=== PATIENT | female | born 1950 | race Caucasian/White ===

== ENCOUNTER 2021-04-08 10:09 | Emergency (ER) | payer MEDICARE, BC, SELFPAY ==
--- NOTE | ~2021-04-08 | XR_ITS ---
EXAMINATION: XR wrist LT min 3V DATE: 04/08/2021 10:42 INDICATION: Left wrist injury. TECHNIQUE: 4 views of left wrist were obtained. COMPARISON: None. FINDINGS: There is a comminuted fracture of distal radius with involvement of the distal articular casillas rface. The main distal fracture fragment demonstrates impaction and dorsal angulation. There is 41 de grees dorsal tilt of the distal articular surface. There is an avulsion fracture of the ulnar styloid . Joint spaces are normal. IMPRESSION: 1. Comminuted fracture of distal radius. 2. Avulsion fracture of the ulnar styloid. Reviewed, dictated and finalized at location B.
--- NOTE | ~2021-04-08 | XR_ITS ---
EXAMINATION: XR wrist LT 2V DATE: 04/08/2021 13:27 INDICATION: Distal left radius fracture status post reduction. TECHNIQUE: 2 views of left wrist were obtained. COMPARISON: Left wrist radiographs at 10:20 AM FINDINGS: There is a comminuted fracture of distal radius with involvement of the distal articular casillas rface and distal radioulnar joint. The main distal fracture fragment demonstrates impaction and dorsa l angulation. There is 6 degrees dorsal tilt of the distal articular surface. There is an avulsion fr acture of the ulnar styloid. Joint spaces are normal. IMPRESSION: 1. Fracture of distal radius with interval improvement in alignment. 2. Avulsion fracture of the ulnar styloid. Reviewed, dictated and finalized at location B.
[2021-04-08 10:24] VITALS: BP 153/96; PULSE 77; RESP 20; TEMP 36.6; O2SAT 96
--- NOTE | 2021-04-08 13:32 | ED.GENADULT ---
HPI - General Adult General Chief complaint: Extremity Injury, Upper Stated complaint: L WRIST PAIN Time Seen by Provider: 04/08/21 11:28 Source: patient and RN notes reviewed Mode of arrival: ambulatory Limitations: no limitations History of Present Illness HPI narrative: Patient is a 70-year-old female who presents to emergency department for evaluation of left wrist injury that occurred yesterday patient was pulling a branch and fell backwards injuring the left wrist presents with bruising swelling and tenderness of the left wrist joint worse with activity and movement. Patient denies other injuries or complaints presents in no distress does not have an orthopedist Related Data Home Medications Medication Instructions Recorded Confirmed vztesslask-zafzphgm-xmnelgbqff 2 inh INHALATION BID 04/08/21 04/08/21 [[employer]] zolmitriptan 5 mg PO PRN PRN 04/08/21 04/08/21 Allergies Allergy/AdvReac Type Severity Reaction Status Date / Time No Known Allergies Allergy Unverified 04/08/21 11:20 Review of Systems Review of Systems: All systems reviewed & are unremarkable except as noted in HPI and below PMFSH Family History Family History (System 10/12/19 @ 12:06 by Natali Pagan) Other Family history of malignant neoplasm Social History Social History Smoking status: Former smoker Smoking end date: 08/24/93 Alcohol intake: current Gender identity (if verbalized by the patient): Female Exam Narrative: GENERAL: Well-appearing, well-nourished, and in no acute distress. HEAD: Normocephalic, atraumatic. EYES: PERRLA and EOMI. ENT: Nares clear, no rhinorrhea or epistaxis. Mucous membranes moist. NECK: Supple. No adenopathy or masses. CHEST: Clear to auscultation. No respiratory distress. No wheezes rales or rhonchi HEART: Regular rate and rhythm. No murmur heard. Normal peripheral pulses. EXTREMITIES: Swelling and tenderness and bruising of the left wrist joint with deformity at the wrist joint SKIN: Warm, dry, no rash. NEURO: No focal deficits. Alert and oriented x3. Neurovascularly intact. Capillary refill less than 2 seconds PSYCH: Normal mood and affect. Course Course Emergency Course: Patient was evaluated in the emergency department wrist was reduced and splinted patient was made aware of case findings and treatment plan and diagnosis will be referred to orthopedic surgery for further care felt appropriate for outpatient reevaluation Vital Signs Vital signs: Vital Signs Temperature 97.9 F 04/08/21 10:24 Pulse Rate 77 04/08/21 10:24 Respiratory Rate 20 04/08/21 10:24 Blood Pressure 153/96 H 04/08/21 10:24 Pulse Oximetry 96 04/08/21 10:24 Temperature 97.9 F 04/08/21 10:24 Pulse Rate 77 04/08/21 10:24 Respiratory Rate 20 04/08/21 10:24 Blood Pressure 153/96 H 04/08/21 10:24 Pulse Oximetry 96 04/08/21 10:24 Procedures Orthopedic Fracture Reduction Fracture #1: Fracture Reduction date: 04/08/21 Fracture Reduction time: 13:36 Time Out Performed: Yes Side: left Fracture Reduction Location: radius and ulna Analgesia: none Pre-Procedure Neuro Vascular Exam: normal Technique: direct manipulation Post Reduction X-rays Demonstrate: acceptable reduction Post-reduction neuro exam: intact Post-reduction vascular exam: intact Splint Applied: Yes Orthopedic Splinting/Casting Injury #1: Splinting/Casting Date: 04/08/21 Splinting/Casting Time: 13:36 Side: left Upper Extremity Injury Location: wrist Splint: customized in ED OCL: short arm Pre-Procedure Neuro Vascular Exam: normal Post-Procedure Neuro Vascular Exam: normal Additional Comments: Sling applied post procedure Medical Decision Making MDM Narrative Medical decision making narrative: Patients injury or
[2021-04-08 14:00] VITALS: BP 166/85; PULSE 72; RESP 18; O2SAT 99
== END 2021-04-08 14:05 | disposition home or self-care (01) ==
PROVIDERS: Emergency Provider Emergency Medicine; PCP Internal Medicine
DX: S52.592A Other fractures of lower end of left radius, initial encounter for closed fracture (principal); S52.612A Displaced fracture of left ulna styloid process, initial encounter for closed fracture; Z87.891 Personal history of nicotine dependence; W18.39XA Other fall on same level, initial encounter
CPT/HCPCS: 25605; 73100; 73110; 99285; A4565

== ENCOUNTER 2022-03-05 08:52 | Outpatient (CLI) | payer MEDICARE, BC, SELFPAY ==
--- NOTE | 2022-03-05 09:16 | ECHO_ITS ---
Patient Info Name: Suzy Mireles Age: 71 years : 1950 Gender: Female Ht: 63 in Wt: 116 lbs BSA: 1.53 m2 HR: 74 bpm BP: 147 / 68 mmHg Heart Rhythm: Sinus Rhythm Exam Date: 03/05/2022 9:45 AM Exam Location: [facility] Patient Status: Outpatient Admit Date: 03/05/2022 Staff Ordering Physician: Johnathan Cervantes MD Manager Summer: Jefferson Vasquez RDCS, RT Attending Provider: Johnathan Cervantes MD Referring Physician: Billy SAVAGE; Exam Type: CA echo doppler color flow Study Info Indications R06.02 - Shortness of breath Complete two-dimensional, color flow and Doppler transthoracic echocardiogram is performed. Strain analysis performed. Summary 1. Complete two-dimensional, color flow and Doppler transthoracic echocardiogram is performed. 2. Left ventricular chamber dimension is normal. 3. Left ventricular systolic function is normal, estimated at 60-65%. 4. There is mildly increased left ventricular wall thickness. 5. The left ventricular diastolic function is grade I diastolic dysfunction. 6. Global longitudinal strain is normal at -19 %. 7. There is no aortic valve stenosis. 8. There is trace mitral valve regurgitation. 9. There is trace tricuspid valve regurgitation. 10. Mild pulmonary hypertension, estimated pulmonary arterial systolic pressure is 39 mmHg. 11. Dilated inferior vena cava with <50% collapse upon inspiration consistent with elevated right atrial pressure, 10 mmHg. Left Ventricle Left ventricular chamber dimension is normal. Left ventricular systolic function is normal, estimated at 60-65%. There is mildly increased left ventricular wall thickness. The left ventricular diastolic function is grade I diastolic dysfunction. Global longitudinal strain is normal at -19 %. Right Ventricle Right ventricular chamber dimension is normal. Right ventricular systolic function is normal. Left Atria Left atrial chamber dimension is normal. Right Atria Right atrial chamber dimension is normal. Aortic Valve The aortic valve is trileaflet. There is no aortic valve stenosis. There is trace aortic valve regurgitation. Pulmonic Valve The pulmonic valve is not well visualized. There is trace pulmonic regurgitation. Mitral Valve The mitral valve has normal leaflets. There is trace mitral valve regurgitation. The mitral valve annulus is mildly calcified. Tricuspid Valve The tricuspid valve leaflets are normal. There is trace tricuspid valve regurgitation. Mild pulmonary hypertension, estimated pulmonary arterial systolic pressure is 39 mmHg. Pericardium/Pleural The pericardium appears epicardial fat pad. There is no pericardial effusion. Inferior Vena Cava Dilated inferior vena cava with <50% collapse upon inspiration consistent with elevated right atrial pressure, 10 mmHg. Aorta The aortic root size at the sinus of Valsalva is normal. There is mild aortic atherosclerosis. Left Ventricular Outflow Tract Name Value Normal LVOT 2D LVOT Diameter 2.0 cm LVOT Doppler LVOT Peak Gradient 3 mmHg LVOT Mean Gradient
--- NOTE | 2022-03-21 13:48 | WPDPFTINT ---
PFT Procedure Performed PFT Procedure Performed Spirometry with Pre/Post Bronchodilator Plethysmography (Lung Vol) Diffusing Cap (DLCO) Flow Vol Loop PFT Interpretation DOS: 03/05/2022 REQUESTING: Dr Cervantes REASON FOR TESTING: Shortness of breath PULMONARY FUNCTION TESTS Results are reliable and reproducible. Spirometry: Pre bronchodilator FEV1 is 59% predicted, 1.23 L, reduced. Pre bronchodilator FVC is 90% predicted, 2.42 L, normal. FEV1/FVC ratio is 51% consistent with airflow obstruction. FEF 25-75 is 24% 0.43 L, severely reduced. After bronchodilator administration there was a 14% increase in FVC, 103% predicted, 2.76 L 340 mill increase and this is statistically significant. Lung volumes: Total lung capacity is 127%, 6.25 L, increased. This is consistent with hyperinflation. FRC is 153%, 4.28 L, increased. ERV is 60%, 0.53 L, reduced. Residual volume is 159%, 3.45 L, increased. RV/TLC is 55%, upper limit normal. Airrway resistance increased, 224%, 2.97 cmH20/L/sec. Diffusion: DLCO 56%, 11.2 mL/min/mmHg, below normal. DLCO/VA 66%, 2.86 mL/min/mmHg, below normal. Flow volume loop: There is coving of the expiratory limb. IMPRESSION: There is a moderate obstructive ventilatory impairment which is severe in the small airways, significant response to bronchodilator, mild hyperinflation, severe air trapping and moderate diffusion impairment. Reyna Gayle MD
--- NOTE | 2022-03-21 13:53 | WPDSIXMINUTE ---
Six Minute Walk Procedure Procedure Performed Pulmonary Stress Test (6 min walk) Six Minute Walk Six Minute Walk: DOS: 03/05/2022 REQUESTING: Dr Cervantes REASON FOR TESTING: Shortness of breath SIX MINUTE WALK This test was performed according to ATS guidelines. The initial heart rate is 68. The initial saturation is 98%. The patient walked while breathing room air, and walked for 6 minutes without stopping to rest. The lowest saturation during walking was 91%. The highest pulse was 96 beats per minute. The distance was 1600 ft/478 m. IMPRESSION: Patient had mild desaturation without loco hypoxemia. No supplemental oxygen is indicated with exertion. Distance walked is adequate for age.
== END 2022-03-05 08:53 | disposition home or self-care (01) ==
LOC: ANHCARD 08:55
PROVIDERS: PCP Internal Medicine; Visit Provider Internal Medicine Pulmonary Disease
DX: Z72.0 Tobacco use (principal); J40 Bronchitis, not specified as acute or chronic; R06.02 Shortness of breath; I27.20 Pulmonary hypertension, unspecified
CPT/HCPCS: 93306; 94060; 94618; 94726; 94729

== ENCOUNTER 2022-10-23 07:58 | Outpatient (CLI) | payer MEDICARE, BC, SELFPAY ==
[2022-10-23 08:25] LABS: Alveolar/Arterial O2 Gradient 37.1 mmHg; Base Excess ABG 0.5 mEq/l (+/-2.0); Carboxyhemoglobin 0.1 % THb (0-2.0); Fractional Inspired Oxygen 21 %; HCO3 ABG 24.3 mEq/l (22.0-26.0); Methemoglobin ABG 0.4 %THb (0-1.5); Oxygen Content ABG 21.3 %vol (16.0-22.0); Oxygen Saturation ABG 94.4 % (95.0-100.0); Oxyhemoglobin 93.7 % THb (90.0-100.0); PCO2 ABG 36.8 mmHg (35.0-45.0); PO2 ABG 68.6 mmHg (80.0-100.0); PO2 FiO2 Ratio Arterial Blood 3.27 %; Reduced Hemoglobin 5.8 %THb (0-5.0); Total Hemoglobin 16.2 g/dL (12.0-18.0); pH ABG 7.437 (7.350-7.450)
[2022-10-23 08:26] LABS: Device ROOM AIR; Modified Allen's Test Pass; Site Drawn RIGHT RADIAL
== END 2022-10-23 07:59 | disposition home or self-care (01) ==
LOC: ANHPFT 07:59
PROVIDERS: PCP Internal Medicine; Visit Provider Internal Medicine Pulmonary Disease
DX: J44.9 Chronic obstructive pulmonary disease, unspecified (principal)
CPT/HCPCS: 36600; 82375; 82805; 83050

== ENCOUNTER → 2023-09-07 12:27 | Outpatient (CLI) | payer MEDICARE, BC, SELFPAY ==
--- NOTE | ~2023-09-07 | CT_ITS ---
Non-contrast CT scan of the Abdomen and Pelvis Clinical indication: Ventral hernia Technique: 2.5 mm axial scans were obtained through the abdomen and pelvis without intravenous or or al contrast. Dose reduction technique was used on this scan by utilizing automated exposure control a nd iterative reconstruction technique. The dose-length product (DLP) was 290.37 mGy-cm. Findings: Images through the lung bases reveal no abnormalities. There is no evidence of renal or ureteral calculi. The kidneys and the ureters are nondilated. The liver, spleen, pancreas, gallbladder, and adrenals appear normal. There are atherosclerotic calci fications of the aorta. There is no evidence of bowel obstruction. Images through the pelvis were performed. There is no evidence of ascites or lymphadenopathy. Urinary bladder well distended. No pelvic mass seen. Impression: No significant abnormality seen. No hernia. Reviewed, dictated and finalized at [facility]. ATTENDANT Impression: No significant abnormality seen. No hernia.
== END ==
PROVIDERS: PCP Internal Medicine; Visit Provider Surgery
DX: K43.9 Ventral hernia without obstruction or gangrene (principal)
CPT/HCPCS: 74176

== ENCOUNTER 2023-10-16 11:56 | Outpatient (CLI) | payer MEDICARE, BC, SELFPAY ==
[2023-10-21 07:23] LABS: Alpha-1-Antitrypsin, QN 116 mg/dL (83-199)
== END 2023-10-16 11:57 | disposition home or self-care (01) ==
LOC: ANHLAB 11:58
PROVIDERS: PCP Internal Medicine; Visit Provider Internal Medicine Pulmonary Disease
DX: E88.01 Alpha-1-antitrypsin deficiency (principal)
CPT/HCPCS: 36415; 82103

== ENCOUNTER 2024-04-08 14:27 | Outpatient (CLI) | payer MEDICARE, BC, SELFPAY ==
--- NOTE | 2024-04-14 11:15 | P.PCNPFT_ITS ---
PFT Procedure Performed PFT Procedure Performed Spirometry with Pre/Post Bronchodilator Plethysmography (Lung Vol) Diffusing Cap (DLCO) Flow Vol Loop PFT Interpretation DOS: 04/08/2024 REQUESTING: Dr Johnathan Cervantes REASON FOR TESTING: Shortness of breath PULMONARY FUNCTION TESTS Results are reliable and reproducible. Repeatability of spirometry FEV1 maneuver pre and post bronchodilator is Grade A. Spirometry: The pre-bronchodilator FEV1 is 1.30 L, 64%, decreased. The pre- bronchodilator FVC is 2.61 L, 99%, normal. The FEV1/FVC ratio is 50%, decreased, consistent with airflow obstruction. After bronchodilator, the FEV1 is 1.30 L, 64%, no change. The FVC after bronchodilator is 2.50 L, 95%, -4%. The FEV1/FVC ratio is 52%. Lung volumes: The total lung capacity is 4.99 L, 102%, normal. The FRC is 3.01 L, 107%, normal. The residual volume is 2.37 L, 107%, normal. The RV/TLC is 47% , normal. Airway resistance is increased. Diffusion: DLCO is 9.4, 48%, decreased. The DLCO/VA is 2.78, 65%, closer to normal still decreased compared to normal. Flow volume loop: The flow volume loop has significant coving of the expiratory limb. IMPRESSION: This spirometry shows moderate airflow obstruction without response to bronchodilator, normal lung volumes and a moderate diffusion impairment. Lack of response to bronchodilator should not preclude use if clinically indicated. Since a prior study on 03/05/2022, the patient had similar spirometry values. She no longer has hyperinflation or air trapping. Diffusion impairment is slowly progressing. Reyna Gayle MD
== END 2024-04-08 14:28 | disposition home or self-care (01) ==
LOC: ANHPFT 14:29
PROVIDERS: PCP Internal Medicine; Visit Provider Internal Medicine Pulmonary Disease
DX: J44.9 Chronic obstructive pulmonary disease, unspecified (principal)
CPT/HCPCS: 94060; 94726; 94729

== ENCOUNTER 2024-09-21 17:07 | Emergency (ER) | payer MEDICARE, BC, SELFPAY ==
--- OUTSIDE RECORDS SUMMARY | 2024-09-21 17:09 | XMS_ITS | Encounter Summary ---
Author Organization [facility] Address [address] [place] [address] Phone Care Team Providers Care Trust Vault Custodian Name Role Phone Saul Tesfaye MD Primary Care Provider [phone] Helen Mullen APRN, TABLEAU ARCHITECT Unavailable Reason for Referral * Radiology Services (Routine) - Closed Specialty Diagnoses / Procedures Referred By Elsi hoover Referred To Contact Radiology Diagnoses Pre-op testing Procedures EKG 12 LEAD Sami Hill DO [address] [place] [address] Phone: tel: fax: Referral ID Status Reason Start Date Expiration Date Visits Re quested Visits Authorized [id number] Closed 07/04/2020 1 1 DDLE BUG Encounter Details Date Type Department Care Team (Late st Contact Info) Description 07/04/2020 [facility] [address] [place] [id number] Sami Hill DO [address] [place] [address] Pre-op testing (Primary Dx) Social History Tobacco Use Types Packs/Day Years Used Date Smoking Tobacco: Former Cigarettes Q uit: 1994 Smokeless Tobacco: Never Alcohol Use Standard Drinks/Week Comments Not Currently 0 (1 standard drink = 0.6 oz pur e alcohol) Comments Unknown Sex and Gender Information Value Date Recorded Sex Assigned at Not on file Legal Sex Female 11:10 AM STRADDLE BUG Gender Identity Not on file Sexual Orientation Not on file COVID-19 Exposure Response Date Recorded In the last month, have you been in contact with someone who was confirmed or suspected to have Coronavirus / COVID-19? No / Unsure 07/05/2020 9:19 AM STRADDLE BUG documented as of this encounter Plan of Treatment Not on file documented as of this encounter Results * EKG 12 LEAD (07/05/2020 10:02 AM STRADDLE BUG) Ventricular Rate BPM EXTERNAL EKG Atrial Rate BPM EXTERNAL EKG P-R Interval 142 ms EXTERNAL EKG QRS Duration 88 ms EXTERNAL EKG Q-T Duration 396 ms EXTERNAL EKG QTC CALCULATION 440 ms EXTERNAL EKG P [place] 85 degrees EXTERNAL EKG R [place] 87 degrees EXTERNAL EKG T [place] 81 degrees EXTERNAL EKG 07/05/2020 10:0 2 AM STRADDLE BUG Impressions EXTERNAL EKG - 07/05/2020 10:51 AM STRADDLE BUG Sinus rhythm Possible right atrial abnormality rSr'(V1) - probable normal variant Comparison Summary: No serial comparison made Summary: Borderline ECG Confirmed by Francie Stoll [id number] on 07/05/2020 10:51:23 AM Narrative Procedure Note Yuni Marmolejo MD - 07/05/2020 IMPRESSION: Sinus rhythm Possible right atrial abnormality rSr'(V1) - probable normal variant Comparison Summary: No serial comparison made Summary: Borderline ECG Confirmed by Francie Stoll [id number] on 07/05/2020 10:51:23 AM Sami Hill DO IMG ECG ORDERABLES Final Result EXTERNAL EKG * (ABNORMAL) HEMOGLOBIN & HEMATOCRIT (H&H) (07/05/2020 9:51 AM STRADDLE BUG) HEMOGLOBIN (HGB) 15.6 12.0 - 15.8 g/dL 07/05/2020 10:30 AM STRADDLE BUG [facility] HEMATOCRIT (HCT) 48.7(H) 36.0 - 47.0 % 07/05/2020 10:30 AM [facility] Blood Venipuncture / Unknown 07/05/2020 9:51 AM STRADDLE BUG 07/05/2020 10:26 AM STRADDLE BUG us Sami Hill DO HEMATOLOGY ORDERABL ES Final Result [facility] [address] [place] [address] * (ABNORMAL) BASIC METABOLIC PANEL W/ CALCIUM TOTAL (07/05/2020 9:51 AM STRADDLE BUG) SODIUM 141 136 - 144 mmol/L 07/05/2020 11:08 AM [facility] POTASSIUM 4.9 3.5 - 5.1 mmol/L 07/05/2020 11:08 AM [facility] CHLORIDE 103 100 - 110 mmol/L 07/05/2020 11:08 AM [facility] CO2, VENOUS 27 22 - 32 mmol/L 07/05/2020 11:08 AM [facility] ANION GAP 15.9 8.0 - 20.0 mmol/L 07/05/2020 11:08 AM [facility] GLUCOSE 84 70 - 99 mg/dL 07/05/2020 11:08 AM [facility] BUN 15 8 - 23 mg/dL 07/05/2020 11:08 AM [facility] CREATININE, BLOOD 0.98 0.60 - 1.10 mg/dL 07/05/2020 11:08 AM [facility] BUN/CREATININE RATIO 15 12 - 20 ratio 07/05/2020 11:08 AM [facility] CALCIUM 10.4(H) 8.9 - 10.3 mg/dL 07/05/2020 11:08 AM [facility] GFR, EST. NONAFRICAN 56(L) >=60 07/05/2020 11:08 AM [facility] GFR, EST. >60 >=60 07/05/2020 11:08 AM STRADDLE BUG [facility] Comment: Creatinine Clearance is the preferred criteria for selecting drug dose adjustments in renally impaired patients. ??The GFR is provided as additional pertinent clinical information. GFR is reported in mL/min/1.73 sq m. Blood Venipuncture / Unknown 07/05/2020 9:51 AM STRADDLE BUG 07/05/2020 10:26 AM STRADDLE BUG Sami Hill DO CHEMISTRY ORDERABLE S Final Result [facility] [address] [place] [address] documented in this encounter Visit Diagnoses Diagnosis Pre-op testing- Primary Preoperative examination, unspecified Pre-op testing Preoperative examination, unspecified documented in this encounter Care Teams Trust Vault Custodian Relationship Specialty Start Date End Date Saul Tesfaye MD [address] [facility] [address] [place] [id number] PCP - General Internal Medicine 07/05/20 Helen Mullen APRN, TABLEAU ARCHITECT [address] [place] [address] Nurse Practitioner Advanced Practice Nurse 08/22/24 documented as of this encounter
--- OUTSIDE RECORDS SUMMARY | 2024-09-21 17:09 | XMS_ITS | Continuity of Care Document ---
Author Organization [facility] Address [address] [place] [address] Phone Care Team Providers Care Jewel Hole Rough Opener Name Role Phone Burciaga OD, Rudy Unavailable Unavailable Advance Directives Directive Yes / No Effective Date File Name No Information Encounters Encounter Description Practice Location Reason(s) For Visit Diagnoses Date Provider Providers Copied on Encounter [facility], [address], [place], [place], [id number], [place] tel:[phone] [facility] No Information Jan- 5-200 0 Burciaga OD Rudy. [address] , [address], [place], [address], [place]. tel:[phone] Family History Family Member Type Diagnosis Age At Onset No Information Payers Payer name Insurance type Covered democrat ID Authoriza tion(s) No Information Social History Type Description Quantity Date Captured Comments Sex Female Smoking Status No Information Chief Complaint And Reason For Visit No Information Reason For Referral Reason For Referral No Information History Of Present Illness Encounter Date Complaint History Of Prese nt Illness No Information Functional Status Date Functional Assessmen t No Information Instructions Date Instruction Additional Infor mation No Information Assessments Type Assessment Date No Information Patient Care Teams Name Effective Dates (start - stop) Status Members No Information
--- OUTSIDE RECORDS SUMMARY | 2024-09-21 17:09 | XMS_ITS | Encounter Summary ---
Author Organization [facility] Address [address] [place] [place] [address] Phone Care Team Providers Care Labor Expediter Name Role Phone Saul Tesfaye MD Primary Care Provider [phone] Helen Mullen APRN, PROJECT SURVEYOR Unavailable Encounter Details Date Type Department Care Team (Latest Contact Info) Description 07/02/2020 [facility] [address] [place] [id number] Allan Francis MD [address] [facility] [address] [place], [place] [id number] Pre-op chest exam (Primary Dx) Social History Tobacco Use Types Packs/Day Years Used Date Smoking Tobacco: Never Assessed Comments Unknown Sex and Gender Information Value Date Recorded Sex Assigned at Not on file Legal Sex Female 11:10 AM ADVERTISING CONSULTANT Gender Identity Not on file Sexual Orientation Not on file COVID-19 Exposure Response Date Recorded In the last month, have you been in contact with someone who was confirmed or suspected to have Coronavirus / COVID-19? No / Unsure 07/05/2020 9:19 AM ADVERTISING CONSULTANT documented as of this encounter Plan of Treatment Scheduled Orders Name Type Priority Associated Diagnoses Orde r Schedule SARS-COV-2 BY MOLECULAR Microbiology Routine Pre-op chest exam Expected: 07/13/2020, Expires: 08/01/2020 documented as of this encounter Visit Diagnoses Diagnosis Pre-op chest exam- Primary Pre-operative respiratory examination documented in this encounter Care Teams Labor Expediter Relationship Specialty Start Date End Date Saul Tesfaye MD [address] [facility] [address] [place] [address] PCP - General Internal Medicine 07/05/20 Helen Mullen APRN, PROJECT SURVEYOR [address] [place] [address] Nurse Practitioner Advanced Practice Nurse 08/22/24 documented as of this encounter
--- OUTSIDE RECORDS SUMMARY | 2024-09-21 17:10 | XMS_ITS | Data Portability ---
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 Plan of Treatment Reminders Order Date Submit Date Provider Last Modified By Organization Details Last Modified Time Details Appointments None recorded . Lab lipid panel, serum 023 02/28/20 23 [email or web address] [facility], [address] [place], [address], 3 17:42:08 CMP, serum or plasma 023 02/28/20 23 [email or web address] [facility], [address] [place], [address], 3 17:42:08 CBC w/ auto diff 023 02/28/20 23 [email or web address] [facility], [address] [place], [address], 3 17:42:08 lipid panel, serum 024 12/01/19 24 [facility], [address] [place], [address], 4 09:46:57 CMP, serum or plasma 024 12/01/19 24 [facility], [address] [place], [address], 4 09:46:58 Referral None recorded . Procedures None recorded . Surgeries None recorded . Imaging None recorded . Medication Orders None recorded . Patient TargetsNo targets recorded. Patient Instructions Encounter Date Encounter Id Patient Instructions Last Modified By Organization Details Last Modified Time 02/27/2023 [id number] dementia rating scale-2* [email or web address] Not available 02/27/2023 11:39:16 alcohol misuse* [email or web address] Not available 02/27/2023 11:39:16 depression screening* [email or web address] Not available 02/27/2023 11:39:16 multi-dimensiona l health assessment questionnaire* Not available 02/27/2023 11:39:16 Personalized a lt Plan and Screening Recommendations Advance Directives - Do you have one? Yes Advance Directives - Do we have your advance directive on file in your health record? Primary Prevention/Interven tion (prevents or decreases the chance of common diseases from occurring) Smoking Risk: Non Smoker Alcohol Misuse Screening: Negative Weight: Appropriate Physical activity: Nutrition: Good Average Fall Risk (screened today): Low Vaccines Pneumococcal: Ordered Recommended today Recommended today, but you have declined No further needed Influenza: Chronic Disease Risks Stroke: Low Risk I have no recommendations Heart Attack: Low risk I have no recommendations Clogging of the Arteries: Low risk I have no recommendations Diabetes: Low Risk I have no recommendations Secondary Prevention/Interven tion (detects treatable diseases before they may cause symptoms, disability, or ) Breast Cancer Screening with mammogram: Cervical/Uterine/Ov patt Cancer Screening: Osteoporosis Screening: Date Screening Last Performed: Colon Cancer Screening: Colonoscopy In: Ordered Recomme nded Recommended today, but you have declined Date Screening Last Performed: ___2015 Eye Disease Screening: Dementia Risk: Low I have no recommendations Depression Screening: Negative [email or web address] Not available 02/27/2023 11:32:25 Medicare wellnes s evaluation risk assessment stable. Follow-up for asthma-anxiety -migraines -history of colon polyps. Does need another colonoscopy. Is up-to-date on other screening studies. Angus is doing well. Will continue on current medications check blood work consisting of CBC, CMP lipid and vitamin-D level. Continue on current Rx and follow-up in six months Needs a follow-up colonoscopy with Dr. Pierce for history of colon polyps [email or web address] Not available 02/27/2023 11:38:54 08/04/2023 [id number] GERD- history of colon polyps -senile osteoporosis -as-migraine. Will continue on current medications. Will set up for upper and lower endoscopy since the patient is overdue on the colonoscopy. Did have a family history of stomach cancer as well which is why we are performing the upper endoscopy as well. Will continue on current Rx and follow-up in four months. Portions of the record may have been created with voice recognition software. Occasional wrong-word or ? s ound-a-like? substitutions may have occurred due to the inherent limitations of voice recognition software. Read the chart carefully and recognize, using context, where substitutions have occurred. Follow-up colonoscopy for colon polyp Upper endoscopy for family history of gastric cancer and intractable GERD [email or web address] Not available 08/04/2023 10:51:24 12/01/2023 [id number] Follow-up asthma , GERD as well as abdominal ventral hernia. All clinically stable at this time. Will check blood work consisting of CBC, CMP, lipid and follow-up in six months. Next Appt: 6 Months Approximate Date: 05/29/2024 Portions of the record may have been created with voice recognition software. Occasional wrong-word or ? s ound-a-like? substitutions may have occurred due to the inherent limitations of voice recognition software. Read the chart carefully and recognize, using context, where substitutions have occurred. Not available 12/01/2023 11:36:01 05/31/2024 [id number] dementia rating scale-2* [email or web address] Not available 05/31/2024 11:46:06 alcohol misuse* [email or web address] Not available 05/31/2024 11:46:06 depression screening* Not available 05/31/2024 11:46:06 multi-dimensiona l health assessment questionnaire* [email or web address] Not available 05/31/2024 11:46:06 Personalized Hea lt Plan and Screening Recommendations Advance Directives - Do you have one? Yes Advance Directives - Do we have your advance directive on file in your health record? Primary Prevention/Interven tion (prevents or decreases the chance of common diseases from occurring) Smoking Risk: Non Smoker Alcohol Misuse Screening: Negative Weight: Appropriate Physical activity: Nutrition: Good Average Fall Risk (screened today): Low Vaccines Pneumococcal: Ordered Recommended today Influenza: Chronic Disease Risks Stroke: Low Risk Intermediate Risk I have no recommendations Act eugenia diagnosis, Continue current treatment plan Heart Attack: Low risk I have no recommendations Clogging of the Arteries: Low risk I have no recommendations Diabetes: Low Risk I have no recommendations Secondary Prevention/Interven tion (detects treatable diseases before they may cause symptoms, disability, or ) Breast Cancer Screening with mammogram: Your next mammogram: Ordered Recommended today Cervical/Uterine/Ov patt Cancer Screening: Osteoporosis Screening: Your next DEXA in: Ordered Recomme nded today Date Screening Last Performed: Colon Cancer Screening: Colonoscopy In: Ordered Recomme nded Recommended today, but you have declined Date Screening Last Performed: __2016___ Eye Disease Screening: Dementia Risk: Low I have no recommendations Depression Screening: Negative [email or web address] Not available 05/31/2024 11:35:24 Medicare wellnes s evaluation risk assessment stable. Follow-up for COPD, GERD, anxiety disorder all clinically stable. Also history of atrial fibrillation. Will check no additional blood work at this time. He is followed on a regular basis by Cardiology and is in the process of completing a 30 day event recorder. Clinically stable. Will continue on current medications follow-up in six months. Additional Orders - Directives - Recommendations 1. Mammogram 2. DEXA Scan 3. Colonoscopy Follow Up: 6 Months Approximate Date: 11/27/2024 Portions of the record may have been created with voice recognition software. Occasional wrong-word or ? s ound-a-like? substitutions may have occurred due to the inherent limitations of voice recognition software. Read the chart carefully and recognize, using context, where substitutions have occurred. [email or web address] Not available 05/31/2024 11:45:38 Reason for Referral None Reported. Results Created Date Observation Date Name Description Value Unit Range Abnormal Flag Note LastModifiedBy Organization Detail LastModifiedTime 09/08/19 23 09/09/2022 RENAL FUNCT ION PANEL glucose 92 mg/dL 65-139 normal Non-f astin g refer ence inter som Not Available [facility] [address] [place], [address], 09/09/2022 08:56:20 09/08/19 23 09/09/2022 RENAL FUNCT ION PANEL urea nitrogen (BUN) 18 mg/dL 7-25 normal Not Available [address], [address], 09/09/2022 08:56:20 09/08/19 23 09/09/2022 RENAL FUNCT ION PANEL creatinine 1.03 mg/dL 0.60-1 .00 high Not Available [address], [address], 09/09/2022 08:56:20 09/08/19 23 09/09/2022 RENAL FUNCT ION PANEL eGFR 57 mL/mi n/1.7 3m2 > or = 60 low The eGFR is based on the CKD-E PI 2020 equat ion. To calcu late the new eGFR from a previ ous Creat inine or Cysta tin C resul t, go to https ://raul w.annel shane.o rickey/pr ofess ional s/ kdoqi /gfr% 5Fcal culat or Not Available [address], [address], 09/09/2022 08:56:20 09/08/19 23 09/09/2022 RENAL FUNCT ION PANEL BUN/creatini ne ratio 17 (calc ) 6-22 normal Not Available [address], [address], 09/09/2022 08:56:20 09/08/19 23 09/09/2022 RENAL FUNCT ION PANEL carbon dioxide 31 mmol/ L 20-32 normal Not Available [address], [address], 09/09/2022 08:56:20 09/08/19 23 09/09/2022 RENAL FUNCT ION PANEL sodium 141 mmol/ L 135-14 6 normal Not Available [address], [address], 09/09/2022 08:56:20 09/08/19 23 09/09/2022 RENAL FUNCT ION PANEL potassium 4.0 mmol/ L 3.5-5. 3 normal Not Available [address], [address], 09/09/2022 08:56:20 09/08/19 23 09/09/2022 RENAL FUNCT ION PANEL chloride 101 mmol/ L 98-110 normal Not Available [address], [address], 09/09/2022 08:56:20 09/08/19 23 09/09/2022 RENAL FUNCT ION PANEL calcium 10.0 mg/dL 8.6-10 .4 normal Not Available [address], [address], 09/09/2022 08:56:20 09/08/19 23 09/09/2022 RENAL FUNCT ION PANEL phosphate ( phosphorus) 4.3 mg/dL 2.1-4. 3 normal Not Available [address], [address], 09/09/2022 08:56:20 09/08/19 23 09/09/2022 RENAL FUNCT ION PANEL albumin 4.4 g/dL 3.6-5. 1 normal Not Available [address], [address], 09/09/2022 08:56:20 04/22/20 23 04/23/2023 LIPID PANEL , STAND CHING cholesterol, total 194 mg/dL <200 normal Not Available [address], [address], 04/23/2023 03:49:13 04/22/20 23 04/23/2023 LIPID PANEL , STAND CHING HDL cholesterol 83 mg/dL > or = 50 normal Not Available [address] [address] [address], [place], [address], 04/23/2023 03:49:13 04/22/2004/23/2023 LIPID PANEL , STAND CHING triglyceride s 70 mg/dL <150 normal Not Available [facility] [address] [place], [address], 04/23/2023 03:49:13 04/22/20 23 04/23/2023 LIPID PANEL , STAND CHING LDL-choleste rol 95 mg/dL _(javier c) normal Refer ence range : <100 Essie able range <100 mg/dL for prima ry preve ntion ; <70 mg/dL for patie nts with CHD or diabe tic patie nts with > or = 2 CHD risk facto rs. LDL-C is now calcu lated using the Abbie n-Hop kins calcu valery n, which is a valid ated novel memo dalton r accur acy than the Fried lambert equat ion in the estim ation of LDL-C . Abbie more SS et al. JANE. 2013; 310(1 9): 2061- 2068 (http ://ed ucati on.Sidelines estelaREVENUE.com. A Green Night's Sleep/f aq/FA Q164) Not Available [facility] [address] [address] [address], [place], [address], 04/23/2023 03:49:13 04/22/2004/23/2023 LIPID PANEL , STAND CHING chol/HDLC ratio 2.3 (calc ) <5.0 normal Not Available [facility] [address] [address], [place], [address], 04/23/2023 03:49:13 04/22/2004/23/2023 LIPID PANEL , STAND CHING non HDL cholesterol 111 mg/dL _(javier c) <130 normal For patie nts with diabe guerita plus 1 major ASCVD risk facto r, treat ing to a non-H DL-C goal of <100 mg/dL (LDL- C of <70 mg/dL ) is garryi low sigala optio n. Not Available [address], [address], 04/23/2023 03:49:13 04/22/20 23 04/23/2023 COMPR EHENS EUGENIA METAB OLIC PANEL glucose 73 mg/dL 65-99 normal Fasti ng refer ence inter som Not Available [address], [address], 04/23/2023 03:49:14 04/22/20 23 04/23/2023 COMPR EHENS EUGENIA METAB OLIC PANEL urea nitrogen (BUN) 18 mg/dL 7-25 normal Not Available [address], [address], 04/23/2023 03:49:14 04/22/20 23 04/23/2023 COMPR EHENS EUGENIA METAB OLIC PANEL creatinine 1.00 mg/dL 0.60-1 .00 normal Not Available [address], [address], 04/23/2023 03:49:14 04/22/20 23 04/23/2023 COMPR EHENS EUGENIA METAB OLIC PANEL eGFR 59 mL/mi n/1.7 3m2 > or = 60 low Not Available [address], [address], 04/23/2023 03:49:14 04/22/2004/23/2023 COMPR EHENS EUGENIA METAB OLIC PANEL BUN/creatini ne ratio SEE NOTE: (calc ) 6-22 Not Repor ngozi: BUN and Creat inine are withi n refer ence range . Not Available [facility] [address], [address], 04/23/2023 03:49:14 04/22/20 23 04/23/2023 COMPR EHENS EUGENIA METAB OLIC PANEL sodium 141 mmol/ L 135-14 6 normal Not Available [address], [address], 04/23/2023 03:49:14 04/22/2004/23/2023 COMPR EHENS EUGENIA METAB OLIC PANEL potassium 4.3 mmol/ L 3.5-5. 3 normal Not Available [address], [address], 04/23/2023 03:49:14 04/22/2004/23/2023 COMPR EHENS EUGENIA METAB OLIC PANEL chloride 105 mmol/ L 98-110 normal Not Available [address], [address], 04/23/2023 03:49:14 04/22/2004/23/2023 COMPR EHENS EUGENIA METAB OLIC PANEL carbon dioxide 29 mmol/ L 20-32 normal Not Available [address], [address], 04/23/2023 03:49:14 04/22/2004/23/2023 COMPR EHENS EUGENIA METAB OLIC PANEL calcium 9.5 mg/dL 8.6-10 .4 normal Not Available [address], [address], 04/23/2023 03:49:14 04/22/2004/23/2023 COMPR EHENS EUGENIA METAB OLIC PANEL protein, total 7.0 g/dL 6.1-8. 1 normal Not Available [address], [address], 04/23/2023 03:49:14 04/22/2004/23/2023 COMPR EHENS EUGENIA METAB OLIC PANEL albumin 4.3 g/dL 3.6-5. 1 normal Not Available [address], [address], 04/23/2023 03:49:14 04/22/20 23 04/23/2023 COMPR EHENS EUGENIA METAB OLIC PANEL globulin 2.7 g/dL_ (calc ) 1.9-3. 7 normal Not Available [address], [address], 04/23/2023 03:49:14 04/22/20 23 04/23/2023 COMPR EHENS EUGENIA METAB OLIC PANEL albumin/glob ulin ratio 1.6 (calc ) 1.0-2. 5 normal Not Available [address], [address], 04/23/2023 03:49:14 04/22/20 23 04/23/2023 COMPR EHENS EUGENIA METAB OLIC PANEL bilirubin, total 0.8 mg/dL 0.2-1. 2 normal Not Available [address], [address], 04/23/2023 03:49:14 04/22/20 23 04/23/2023 COMPR EHENS EUGENIA METAB OLIC PANEL alkaline phosphatase 92 U/L 37-153 normal Not Available [address], [address], 04/23/2023 03:49:14 04/22/20 23 04/23/2023 COMPR EHENS EUGENIA METAB OLIC PANEL AST 27 U/L 10-35 normal Not Available [address], [address], 04/23/2023 03:49:14 04/22/20 23 04/23/2023 COMPR EHENS EUGENIA METAB OLIC PANEL ALT 21 U/L 6-29 normal Not Available [address], [address], 04/23/2023 03:49:14 04/22/20 23 04/23/2023 CBC (INCL UDES DIFF/ PLT) white blood cell count 6.4 thous and/u L 3.8-10 .8 normal Not Available [address], [address], 04/23/2023 03:49:15 04/22/20 23 04/23/2023 CBC (INCL UDES DIFF/ PLT) red blood cell count 4.69 idania on/uL 3.80-5 .10 normal Not Available [address], [address], 04/23/2023 03:49:15 04/22/20 23 04/23/2023 CBC (INCL UDES DIFF/ PLT) hemoglobin 15.0 g/dL 11.7-1 5.5 normal Not Available [address], [address], 04/23/2023 03:49:15 04/22/2004/23/2023 CBC (INCL UDES DIFF/ PLT) hematocrit 43.4 % 35.0-4 5.0 normal Not Available [address], [address], 04/23/2023 03:49:15 04/22/2004/23/2023 CBC (INCL UDES DIFF/ PLT) MCV 92.5 fL 80.0-1 00.0 normal Not Available [address], [address], 04/23/2023 03:49:15 04/22/20 23 04/23/2023 CBC (INCL UDES DIFF/ PLT) MCH 32.0 pg 27.0-3 3.0 normal Not Available [facility] [address], [address], 04/23/2023 03:49:15 04/22/2004/23/2023 CBC (INCL UDES DIFF/ PLT) MCHC 34.6 g/dL 32.0-3 6.0 normal Not Available [address], [address], 04/23/2023 03:49:15 04/22/2004/23/2023 CBC (INCL UDES DIFF/ PLT) RDW 12.6 % 11.0-1 5.0 normal Not Available [address], [address], 04/23/2023 03:49:15 04/22/2004/23/2023 CBC (INCL UDES DIFF/ PLT) platelet count 185 thous and/u L 140-40 0 normal Not Available [address], [address], 04/23/2023 03:49:15 04/22/2004/23/2023 CBC (INCL UDES DIFF/ PLT) MPV 9.9 fL 7.5-12 .5 normal Not Available [address], [address], 04/23/2023 03:49:15 04/22/20 23 04/23/2023 CBC (INCL UDES DIFF/ PLT) absolute neutrophils 4198 cells /uL 1500-7 800 normal Not Available [address], [address], 04/23/2023 03:49:15 04/22/2004/23/2023 CBC (INCL UDES DIFF/ PLT) absolute lymphocytes 1357 cells /uL 850-39 00 normal Not Available [address], [address], 04/23/2023 03:49:15 04/22/2004/23/2023 CBC (INCL UDES DIFF/ PLT) absolute monocytes 538 cells /uL 200-95 0 normal Not Available [address], [address], 04/23/2023 03:49:15 04/22/20 23 04/23/2023 CBC (INCL UDES DIFF/ PLT) absolute eosinophils 256 cells /uL 15-500 normal Not Available [address], [address], 04/23/2023 03:49:15 04/22/20 23 04/23/2023 CBC (INCL UDES DIFF/ PLT) absolute basophils 51 cells /uL 0-200 normal Not Available [facility] [address], [address], 04/23/2023 03:49:15 04/22/20 23 04/23/2023 CBC (INCL UDES DIFF/ PLT) neutrophils 65.6 % normal Not Available [address], [address], 04/23/2023 03:49:15 04/22/20 23 04/23/2023 CBC (INCL UDES DIFF/ PLT) lymphocytes 21.2 % normal Not Available [address], [address], 04/23/2023 03:49:15 04/22/20 23 04/23/2023 CBC (INCL UDES DIFF/ PLT) monocytes 8.4 % normal Not Available [facility] [address], [address], 04/23/2023 03:49:15 04/22/20 23 04/23/2023 CBC (INCL UDES DIFF/ PLT) eosinophils 4.0 % normal Not Available [facility] [address], [address], 04/23/2023 03:49:15 04/22/20 23 04/23/2023 CBC (INCL UDES DIFF/ PLT) basophils 0.8 % normal Not Available [address], [address], 04/23/2023 03:49:15 04/29/20 24 04/30/2024 LIPID PANEL , STAND CHING cholesterol, total 161 mg/dL <200 normal Not Available [facility] [place] [address] [place], [address], 04/30/2024 09:46:57 04/29/20 24 04/30/2024 LIPID PANEL , STAND CHING HDL cholesterol 79 mg/dL > or = 50 normal Not Available [facility] [address] [place], [address], 04/30/2024 09:46:57 04/29/20 24 04/30/2024 LIPID PANEL , STAND CHING triglyceride s 58 mg/dL <150 normal Not Available [facility] [address] [address] [place], [address], 04/30/2024 09:46:57 04/29/20 24 04/30/2024 LIPID PANEL , STAND CHING LDL-choleste rol 69 mg/dL _(javier c) normal Refer ence range : <100 Essie able range <100 mg/dL for prima ry preve ntion ; <70 mg/dL for patie nts with CHD or diabe tic patie nts with > or = 2 CHD risk facto rs. LDL-C is now calcu lated using the Abbie more-Hop eli rasmussen n, which is a valid ated novel memo alva accur acy than the Fried lambert equat ion in the estim ation of LDL-C . Abbie more SS et al. JANE. 2013; 310(1 9): 2061- 2068 (http ://ed ucati on.Qu Sandi nogueras. com/f aq/FA Q164) Not Available [facility] [address] [place], [address], 04/30/2024 09:46:57 04/29/2004/30/2024 LIPID PANEL , STAND CHING chol/HDLC ratio 2.0 (calc ) <5.0 normal Not Available [facility] [address] [place], [address], 04/30/2024 09:46:57 04/29/20 24 04/30/2024 LIPID PANEL , STAND CHING non HDL cholesterol 82 mg/dL _(javier c) <130 normal For patie nts with diabe guerita plus 1 major ASCVD risk facto r, treat ing to a non-H DL-C goal of <100 mg/dL (LDL- C of <70 mg/dL ) is joshua sigala optio n. Not Available [address] [address] [place], [address], 04/30/2024 09:46:57 04/29/2004/30/2024 COMPR EHENS EUGENIA METAB OLIC PANEL glucose 72 mg/dL 65-99 normal Fasti ng refer ence inter som Not Available [address] [place], [address], 04/30/2024 09:46:58 04/29/2004/30/2024 COMPR EHENS EUGENIA METAB OLIC PANEL urea nitrogen (BUN) 15 mg/dL 7-25 normal Not Available [address] [place], [address], 04/30/2024 09:46:58 04/29/20 24 04/30/2024 COMPR EHENS EUGENIA METAB OLIC PANEL creatinine 0.98 mg/dL 0.60-1 .00 normal Not Available [address], [address], 04/30/2024 09:46:58 04/29/20 24 04/30/2024 COMPR EHENS EUGENIA METAB OLIC PANEL eGFR 61 mL/mi n/1.7 3m2 > or = 60 normal Not Available [facility] [address], [address], 04/30/2024 09:46:58 04/29/2004/30/2024 COMPR EHENS EUGENIA METAB OLIC PANEL BUN/creatini ne ratio SEE NOTE: (calc ) 6-22 Not Repor ngozi: BUN and Creat inine are withi n refer ence range . Not Available [facility] [address] [place], [address], 04/30/2024 09:46:58 04/29/2004/30/2024 COMPR EHENS EUGENIA METAB OLIC PANEL sodium 140 mmol/ L 135-14 6 normal Not Available [address], [address], 04/30/2024 09:46:58 04/29/2004/30/2024 COMPR EHENS EUGENIA METAB OLIC PANEL potassium 4.4 mmol/ L 3.5-5. 3 normal Not Available [address], [address], 04/30/2024 09:46:58 04/29/2004/30/2024 COMPR EHENS EUGENIA METAB OLIC PANEL chloride 104 mmol/ L 98-110 normal Not Available [address], [address], 04/30/2024 09:46:58 04/29/2004/30/2024 COMPR EHENS EUGENIA METAB OLIC PANEL carbon dioxide 30 mmol/ L 20-32 normal Not Available [address], [address], 04/30/2024 09:46:58 04/29/2004/30/2024 COMPR EHENS EUGENIA METAB OLIC PANEL calcium 9.7 mg/dL 8.6-10 .4 normal Not Available [address], [address], 04/30/2024 09:46:58 04/29/2004/30/2024 COMPR EHENS EUGENIA METAB OLIC PANEL protein, total 6.7 g/dL 6.1-8. 1 normal Not Available [address], [address], 04/30/2024 09:46:58 04/29/2004/30/2024 COMPR EHENS EUGENIA METAB OLIC PANEL albumin 4.1 g/dL 3.6-5. 1 normal Not Available [address], [address], 04/30/2024 09:46:58 04/29/20 24 04/30/2024 COMPR EHENS EUGENIA METAB OLIC PANEL globulin 2.6 g/dL_ (calc ) 1.9-3. 7 normal Not Available [address], [address], 04/30/2024 09:46:58 04/29/2004/30/2024 COMPR EHENS EUGENIA METAB OLIC PANEL albumin/glob ulin ratio 1.6 (calc ) 1.0-2. 5 normal Not Available [address], [address], 04/30/2024 09:46:58 04/29/20 24 04/30/2024 COMPR EHENS EUGENIA METAB OLIC PANEL bilirubin, total 0.8 mg/dL 0.2-1. 2 normal Not Available [address], [address], 04/30/2024 09:46:58 04/29/20 24 04/30/2024 COMPR EHENS EUGENIA METAB OLIC PANEL alkaline phosphatase 133 U/L 37-153 normal Not Available [address], [address], 04/30/2024 09:46:58 04/29/20 24 04/30/2024 COMPR EHENS EUGENIA METAB OLIC PANEL AST 35 U/L 10-35 normal Not Available [address], [address], 04/30/2024 09:46:58 04/29/20 24 04/30/2024 COMPR EHENS EUGENIA METAB OLIC PANEL ALT 30 U/L 6-29 high Not Available [id number], [place], [address], 04/30/2024 09:46:58 09/07/19 24 09/07/2023 CT, abdom en + pelvi s, w/o contr ast No observ ation record ed. [address] [facility] [address], [place], [address], 09/07/2023 15:58:17 02/03/20 24 02/03/2024 surjit r monit or No observ ation record ed. [address] [facility] [address], [place], [address], 02/03/2024 09:59:11 02/03/20 24 01/04/2024 mobil e cardi ac telem etry (PROC ) No observ ation record ed. [place] [id number] Not Available 2023 17:26:44 04/14/20 24 04/08/2024 PFT, compl ete No observ ation record ed. [address], [place], [address], 04/14/2024 15:13:41 06/28/20 24 06/28/2024 DEXA, axial skele ton [facility] [address] [place] [address] Patien t Name: SHEMAR MIRELES Access ion #: [id number] Sex: F : 1949 9 Dictat ed By: Linda Gallegos Attend ing Physic feli: DEEPALI TESFAYE CE Orderi Physic feli: DEEPALI TESFAYE Exam Date: 2023 15:07 PM Exam Name: XR DEXA-H IPS PELVIS SPINE Admitt ing Diagno sis(es ): INDICA TION: 73 years old, Female ; osteop orosis . Postme nopaus al. DEXA SCAN: BONE DENSIT Y REPORT : AP SPINE (L1-L4 ) : T Score: -2.0 LEFT HIP TOTAL : T Score: -2.1 RT HIP TOTAL : T Score: -2.3 TOTAL BILAT HIP AVG: T Score: -2.2 10 YEAR FRACTU RE RISK* Not provid ed. IMPRES REYES: 1. Osteop enia of the lumbar spine. 2. 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 ------ ------ ------ ------ ------ ------ ------ ------ ----- *FRAX versio n 3.08. Fractu re probab ility calcul ated for an untrea ngozi patien t. Fractu re probab ility may be lower if the patien t has receiv ed treatm ent. T-scor e: compar marguerite by charisma rd deviat ion (SD) to a young adult popula tion, matche d for sex and ethnic ity (used for postme nopaus al women and men >50 years) and classi fied by WHO criter ia. Page 1 [facility] [address] [id number] Patien t Name: SHEMAR MIRELES Access ion #: [id number] Sex: F : 1949 9 Dictat ed By: Linda Gallegos Attend ing Physic feli: FITO CONTRERAS [facility] Physic feli: DEEPALI TESFAYE Exam Date: 2023 15:07 PM Exam Name: XR DEXA-H IPS PELVIS SPINE Admitt ing Diagno sis(es ): -1.0: normal <-1.0 to >-2.5: osteop enia -2.5: osteop orosis -2.5 plus fragil ity fractu re: severe osteop orosis Z-scor e: compar ed by SD to an age, sex, and ethnic ity popula tion (used for premen opausa l women, men <50 years, and childr en instea d of T-scor e WHO criter ia 4) <-2.0: below expect ed range/ low bone densit y for age, and a cause should be sought Electr onical ly Signed by: Linda Gallegos at 2023 16:48: 30 PM Page 2 [email or web address] [facility] (Imaging) [address] [facility], [place], [address], 06/29/2024 09:55:12 06/28/20 24 06/28/2024 scree matt breas t kristen, bilat [facility] [address] [facility] [address], [place] [address] Patikatya t Name: SHEMAR MIRELES RY Access ion #: [id number] Sex: F : 1949 9 Dictat ed By: Linda Gallegos Attend ing Physic feli: DEEPALI TESFAYE CE Orderi ng Physic feli: DEEPALI TESFAYE CE Exam Date: 2023 14:46 PM Exam Name: MG SCRN BREAST KRISTEN BILAT Admitt ing Diagno sis(es ): PROCED URE: SCREEN ING MAMMOG LILA WITH TOMOSY NTHESI S REASON FOR EXAM: screen ing mammog lila COMPAR MARGUERITE: MG DIGITA L GISELA BILAT SCREEN 2D on DOS: 2, DIGITA L MAMM, BILAT SCREEN ING 2D on DOS: , DIGITA L MAMM, BILAT SCREEN ING 2D on DOS: 5 TECHNI QUE: Bilate ral CC and MLO views obtain ed. Images were obtain ed using a Digita l Tomosy nthesi s Unit. Standa rd 2D and 3D Tomosy nthesi s images were review ed. FINDIN GS: BREAST COMPOS ITION: D - The breast s are extrem aron dense, which lowers the sensit ivity of mammog kiran. In the right breast , no asymme trical parenc hymal patter n, ace ectura l distor tion, pleomo rphic microc alcifi cation s or masses . In the left breast , no asymme trical parenc hymal patter n, ace ectura l distor tion, pleomo rphic microc alcifi cation s or masses . IMPRES REYES: No findin gs of malign nellie. RECOMM ENDATI ON: Recomm end annual mammog lila. Given extrem aron dense breast tissue , supple mental bilate ral breast screen ing ultras ound is also recomm ended. ASSESS MENT: Page [address] [facility] [address] [place] [address] Patien t Name: SHEMAR MIRELES Access ion #: [id number] Sex: F : 1949 9 Dictat ed By: Linda Gallegos Attend ing Physic feli: FITO CONTRERAS Physic feli: DEEPALI TESFAYE Exam Date: 2023 14:46 PM Exam Name: MG SCRJacquelin BREAST KRISTEN BILAT Admitt ing Diagno sis(es ): BIRADS : 2 - Benign Electr onical ly Signed by: Linda Gallegos at 2023 16:50: 19 PM Page 2 [email or web address] [facility] (Imaging) [address] [place], [address], 06/29/2024 09:55:37 Result Notes None recorded. Problems Name Problem SNOMED Code Status Onset Date Resolution Date Notes Provider Name and Address Organization Details Recorded Time Renewal of prescription Active 2021 Not Available [facility] 3 06:42:29 Serum creatinine above reference range 414501324 Active 2022 Not Available [facility] 3 06:42:29 Senile osteoporosis 08905605 Active 2021 Not Available [facility] 3 06:42:30 Asthma 157620204 Active Not Available [facility] 3 06:42:30 Anxiety disorder 117007630 Active Not Available [facility] 3 06:42:30 Migraine 33784990 Active Not Available [facility] 3 06:42:30 Osteoarthriti s 052604283 Active Not Available [facility] 3 06:42:30 Vertigo 280998528 Active 2021 Not Available [facility] 3 06:42:30 Allergic rhinitis 72519627 Active Not Available [facility] 3 06:42:30 Eye strain 09329303 Active 2017 Not Available [facility] 3 06:42:30 Polyp of colon 95935182 Active 2022 Kala Tesfaye MD [address], [address], [place], [address] , [place] [facility] 3 11:35:38 Vitamin D deficiency 93882827 Active 2022 Kala Tesfaye MD [address], [address], [place], [address] , [place] [facility] 3 11:38:40 Nausea 575560511 Active 2022 Lilly Zuluaga null, [place] [facility] 3 16:30:34 Gastroesophag eal reflux disease 610903203 Active 2022 Kala Tesfaye MD [address], [address], [place], [address] , [place] [facility] 3 10:46:36 Hernia of anterior abdominal wall 534371911 Active 2022 Sindy Beck null, [place] [facility] 3 15:05:39 Hiatal hernia 09111172 Active 2022 Sindy Beck null, [place] [facility] 3 15:14:16 Anxiety 75640133 Active 2023 Ratna Luciano CMA null, [place] [facility] 4 12:44:43 Bradycardia 03113717 Active 2023 Sindy Beck null, [place] [facility] 4 16:46:01 Near syncope 741099243 Active 2023 Sindy Beck null, [place] [facility] 4 16:46:10 Atrial fibrillation 75129547 Active 2023 Ratna Luciano CMA null, [place] [facility] 4 17:04:49 Osteopenia 757799898 Active 2023 Ratna Luciano CMA null, [facility] 4 11:07:37 Gastroesophag eal reflux disease without esophagitis 572051648 Active 2023 Ratna Luciano CMA null, [facility] 4 14:20:09 Problem Notes None recorded. Procedures Surgical History Date Name Laterality Status Provider Name and Address Organization Details Recorded Time 4 Medicare Wellness CPT Code, subsequent completed Margarette Enrique RN [facility] 05/31/2024 11:28:01 3 Medicare Wellness CPT Code, subsequent completed Margarette Enrique RN [facility] 02/27/2023 11:26:14 Imaging Results Imaging Date Name Status LastModified by Organiz ation Details LastModified Time 09/07/2023 CT, abdomen + pelvis, w/o contrast completed [address] [facility] [address], [place], [address], 09/07/2023 15:58:17 02/03/2024 holter monitor completed [address] [facility] [address], [place], [address], 02/03/2024 09:59:11 01/04/2024 mobile cardiac telemetry (PROC) completed [place] [address] Information not available 02/03/2024 17:26:44 04/08/2024 PFT, complete completed [email or web address] [facility] [address] [facility] [address], [place], [address], 04/14/2024 15:13:41 06/28/2024 DEXA, axial skeleton completed [address] (Imaging) [address] [place], [address], 06/29/2024 09:55:12 06/28/2024 screening breast kristen, bilat completed [address] (Imaging) [address] [facility], [place], [address], 06/29/2024 09:55:37 Procedure Notes None recorded. Medical Equipment None Reported. Medications Name Sig Start Date Stop Date Status Note LastModified by Organization Details LastModified Time Prescripti on - Prior Authorizat ion Request active BCBS DENIAL FOR [facility] ODT Not Available Not Available Not Available fluticason e 250 mcg-salmet dottie 50 mcg/dose blistr powdr for inhalation INHALE 1 PUFF BY MOUTH TWICE DAILY active Not Available Not Available No t Available albuterol sulfate 2.5 mg/3 mL (0.083 %) solution for nebulizati on Inhale 3 mL 4 times a day by nebuliza tion route. 03/04 completed Not Available Not Available Not Available benzonatat e 200 mg capsule TAKE 1 CAPSULE BY MOUTH THREE TIMES DAILY 03/04 completed Not Available Not Available Not Available hydrocodon e 5 mg-acetami nophen 325 mg tablet TAKE 1 TABLET BY MOUTH EVERY 6 HOURS NEEDED 10/01 completed Not Available Not Available Not Available meloxicam 15 mg tablet TAKE 1 TABLET BY MOUTH DAILY 08/31 completed Not Available Not Available Not Available ondansetro n HCl 4 mg tablet TAKE 1 TO 2 TABLETS BY MOUTH FOUR TIMES DAILY NEEDED 11/30 completed Not Available Not Available Not Available alendronat e 70 mg tablet TAKE 1 TABLET WEEKLY active Not Available Not Available No t Available pimecrolim us 1 % topical cream APPLY A THIN LAYER TO THE AFFECTED AREA(S) BY TOPICAL ROUTE 2 TIMES PER DAY ; RUB IN GENTLY AND COMPLETE LY or as directed 11/30 completed Not Available Not Available Not Available Zithromax Z-Edil 250 mg tablet Take 2 TABLET EVERY DAY by oral route for 1 day then one daily 01/29 completed Not Available Not Available Not Available zolmitript an 5 mg tablet TAKE 1 TABLET AT ONSET OF HEADACHE , MAY REPEAT 1 TABLET IN 1 HOUR. MAXIMUM 2TABLETS DAILY 2023 active Not Available Not Available Not Avai lable alprazolam 0.5 mg tablet TAKE 1 TABLET BY MOUTH THREE TIMES DAILY NEEDED active Not Available Not Available No t Available baclofen 10 mg tablet TAKE 1 TABLET BY MOUTH FOUR TIMES DAILY active Not Available Not Available No t Available lisinopril 10 mg tablet TAKE 1 TABLET BY MOUTH EVERY DAY 03/04 completed Not Available Not Available Not Available lotepredno l etabonate 0.5 % eye drops,susp ension INSTILL 1 DROP INTO BOTH EYES THREE TIMES DAILY. SHAKE WELL active Not Available Not Available No t Available Ativan 0.5 mg tablet 1 tablet three times a day as needed or directed 02/27 completed Not Available Not Available Not Available albuterol sulfate HFA 90 mcg/actuat ion aerosol inhaler 2 puffs every six hours as needed 2024 active Not Available Not Available Not Avai lable Vitamin D2 1,250 mcg (50,000 unit) capsule Take 1 capsule every week by oral route. active Not Available Not Available No t Available fluticason e propionate 50 mcg/actuat ion nasal spray,susp ension INSTILL 2 SPRAYS INTO EACH NOSTRIL EVERY DAY 04/10 completed Not Available Not Available Not Available amoxicilli n 875 mg-potassi um clavulanat e 125 mg tablet Take 1 tablet every 12 hours by oral route. 02/27 completed Not Available Not Available Not Available tiotropium bromide 18 mcg capsule with inhalation device INHALE THE CONTENTS OF ONE CAPSULE EVERY DAY active Not Available Not Available No t Available Dulera 100 mcg-5 mcg/actuat ion HFA aerosol inhaler Inhale 2 puffs twice a day by inhalati on route. 03/04 completed Not Available Not Available Not Available Dulera 08/28 completed Not Available Not Available Not Available Caltrate 600 plus D one twice a day 2013 active Not Available Not Available Not Avai lable Os-Javier 500 + D3 500 mg-15 mcg (600 unit) tablet Take 1 tablet twice a day by oral route. 2022 active Not Available Not Available Not Avai lable Breo Ellipta 100 mcg-25 mcg/dose powder for inhalation Inhale 1 puff every day by inhalati on route. 04/10 completed Not Available Not Available Not Available Trelegy Ellipta 100 mcg-62.5 mcg-25 mcg powder for inhalation INL 1 PUFF PO QD active Not Available Not Available No t Available Wixela Inhub 500 mcg-50 mcg/dose powder for inhalation USE 1 INHALATI ON ORALLY TWICE DAILY active Not Available Not Available No t Available [facility] ODT 75 mg disintegra ting tablet take one tablet every other day 08/04 completed Not Available Not Available Not Available Yaritza Aerosphere 160 mcg-9mcg-4 .8mcg/actu ation HFA aerosol inhaler Inhale 2 puffs twice a day by inhalati on route. 02/21 completed Not Available Not Available Not Available Vitals Date Recorded Body mass index (BMI) Body height Oxygen saturation Oxygen saturation in Arterial blood by Pulse oximetry Heart rate Body temperature Body weight Systolic blood pressure Diastolic blood pressure Provider Name and Address Organization Details Last Updated DateTime 3 22 kg/m2 160.02 cm 96 % 96 % 78 /min 97 [degF] 27560.4 5 g 118 mm[Hg] 80 mm[Hg] Not Available [facility] 3 06:40:16 Date Recorded Body height Body mass index (BMI) Body weight Heart rate Body temperature Oxygen saturation Oxygen saturation in Arterial blood by Pulse oximetry Systolic blood pressure Diastolic blood pressure Provider Name and Address Organization Details Last Updated DateTime 3 160.02 cm 21.3 kg/m2 05579.0 8 g 78 /min 97 [degF] 97 % 97 % 120 mm[Hg] 84 mm[Hg] Lilly Zuluaga [employer] 3 11:21:14 Date Recorded Body height Body mass index (BMI) Body weight Heart rate Body temperature Oxygen saturation Oxygen saturation in Arterial blood by Pulse oximetry Systolic blood pressure Diastolic blood pressure Provider Name and Address Organization Details Last Updated DateTime 3 160.02 cm 21.6 kg/m2 95406.2 7 g 80 /min 97 [degF] 95 % 95 % 118 mm[Hg] 78 mm[Hg] Lilly [employer] 3 10:35:22 Date Recorded Body height Body mass index (BMI) Body weight Oxygen saturation Oxygen saturation in Arterial blood by Pulse oximetry Systolic blood pressure Diastolic blood pressure Provider Name and Address Organization Details Last Updated DateTime 4 158.75 cm 21.2 kg/m2 91586.9 g 97 % 97 % 124 mm[Hg] 72 mm[Hg] Ratna Luciano CMA [facility] [employer] 4 11:16:56 Date Recorded Heart rate Provider Name an d Address Organization Details Last Updated DateTime 12/01/2023 55 /min Kala Tesfaye MD [address], [address], [place], [address], [facility] [employer] 12/01/2023 11:24:31 Date Recorded Body height Body mass index (BMI) Body weight Heart rate Body temperature Oxygen saturation Oxygen saturation in Arterial blood by Pulse oximetry Systolic blood pressure Diastolic blood pressure Provider Name and Address Organization Details Last Updated DateTime 160.02 cm 20.7 kg/m2 49374.3 1 g 80 /min 97 [degF] 97 % 97 % 124 mm[Hg] 62 mm[Hg] Lilly Sinhachandan [place] [employer] [facility] [employer] 11:13:39 Social History Question Answer Notes LastModified by Organizat ion Details LastModified Time Tobacco Smoking Status Former Smoker Not Available [employer] 10/22/2022 06:39:47 Do You Have An Advance Directive? Yes [email or web address] Information not available 05/31/2024 What Is Your Level Of Alcohol Consumption? None [email or web address] Information not available 05/31/2024 Are You Blind Or Do You Have Difficulty Seeing? No MIGRATION.81973 [id number] Information not available 10/22/2022 In The 14 Days Before Symptom Onset, Have You Had Close Contact With A Laboratory-confi rmed COVID-19 While That Case Was Ill? No MIGRATION.72122 90823 Information not available 10/22/2022 In The 14 Days Before Symptom Onset, Have You Had Close Contact With A Person Who Is Under Investigation For COVID-19 While That Person Was Ill? No MIGRATION.99686 02413 Information not available 10/22/2022 Are You Deaf Or Do You Have Serious Difficulty Hearing? No MIGRATION.65118 01800 Information not available 10/22/2022 What Type Of Diet Are You Following? REGULAR MIGRATION.00083 58006 Information not available 10/22/2022 Have There Been Any Changes To Your Family Or Social Situation? No MIGRATION.03107 58285 Information not available 10/22/2022 What Is The Fluoride Status Of Your Home? Unknown MIGRATION.51646 62735 Information not available 10/22/2022 When Did You Quit Smoking? 16+yearssincelastc igarette MIGRATION.57257 42231 Information not available 10/22/2022 Are There Any Guns Present In Your Home? No MIGRATION.54201 26257 Information not available 10/22/2022 Do You Use Insect Repellent Routinely? No MIGRATION.28031 98159 Information not available 10/22/2022 [facility] MIGRATION.13006 68962 Information not available 10/22/2022 Guns Present In The Home? No [email or web address] Information not available 05/31/2024 Are You Able To Care For Yourself? Yes [email or web address] Information not available 05/31/2024 Are You Blind Or Do Yo Have Difficulty Seeing? No [email or web address] Information not available 05/31/2024 Are You Deaf Or Do You Have Serious Difficulty Hearing? No [email or web address] Information not available 05/31/2024 Live Alone Of With Others? Alone Information not available 05/31/2024 Do You Have A Medical Power Of Veterinary Milk Specialist? Yes [email or web address] Information not available 05/31/2024 What Was The Date Of Your Most Recent Tobacco Screening? 05/31/2024 [email or web address] Information not available 05/31/2024 Do You Have Any Pets? No MIGRATION.75541 96540 Information not available 10/22/2022 Do You Use Your Seat Belt Or Car Seat Routinely? Yes MIGRATION.49695 73653 Information not available 10/22/2022 Do You Have Smoke And Carbon Monoxide Detectors In Your Home? Yes MIGRATION.92125 93139 Information not available 10/22/2022 Are You Passively Exposed To Smoke? No MIGRATION.91582 36882 Information not available 10/22/2022 Are There Any Smokers In Your House? No MIGRATION.43200 46309 Information not available 10/22/2022 Do You Use Sunscreen Routinely? No MIGRATION.15136 01086 Information not available 10/22/2022 How Many Years Have You Smoked Tobacco? 30 MIGRATION.92038 60546 Information not available 10/22/2022 Have You Recently Traveled Abroad? No MIGRATION.86927 75862 Information not available 10/22/2022 Do You Have Any Dietary Restrictions? No MIGRATION.84071 15343 Information not available 10/22/2022 Sex: Unknown Functional Status Question Answer Note LastModified by [employer] Details LastModified Time Do you have difficulty walking or climbing stairs? No MIGRATION.1006600 026 Information not available 10/22/2022 Do you have transportation difficulties? No MIGRATION.5538351 026 Information not available 10/22/2022 Are you able to walk? YESWOREST MIGRATION.9810002 026 Information not available 10/22/2022 Do you have difficulty doing errands alone? No MIGRATION.3464572 026 Information not available 10/22/2022 Are you able to care for yourself? Yes MIGRATION.[id number] 026 Information not available 10/22/2022 Do you have difficulty dressing or bathing? No MIGRATION.3551562 026 Information not available 10/22/2022 What is your exercise level? Moderate MIGRATION.3213608 026 Information not available 10/22/2022 Mental Status Question Answer Note LastModified by Organizat [employer] Details LastModified Time Do you have difficulty concentrating, remembering or making decisions? No MIGRATION.[id number] 6 Information not available 10/22/2022 Family History Relationship Description Onset Age of this Age Resolved Age Notes LastModified by Organization Details LastModified Time Father Family history of malignant neoplasm MIGRATION.227 [id number] Not available 10/22/2022 06:40:09 Mother Family history of malignant neoplasm MIGRATION.880 [id number] Not available 10/22/2022 06:40:09 Notes:Mother 64 yea rs old Father 76 years old 1 Brothers 1 Living 4 Sisters 2 Living one killed by MVA as child and the other of complications of COPD, Liver and Drug Addiction Mother Hx Ca of Lung Father Hx Ca of Stomach Medical History Condition Response NERVE DISEASE N BLINDNESS N RHEUMATIC FEVER N KIDNEY STONES N BLADDER PROBLEMS N MRSA N OTHER # 1 N POLIO N LUNG DISEASE/DISORDER Y COPD N RADIATION / CHEMOTHERAPY N Other # 2 N BLOOD DISEASES N EAR OR HEARING PROBLEMS N MUMPS N DEPRESSION (INCLUDING POST ) N BOWEL PROBLEMS N STROKE/TIA N ULCERS N BENIGN PROSTATIC HYPERPLASIA N MEASLES N MYOCARDIAL INFARCTION N OBESITY N GERD/NAUSEA N ANEURYSM N URINARY/BLADDER/KIDNEY PROBLEMS N CORONARY ARTERY DISEASE (CAD) N ADDICTION CONCERNS N Impotence N ENDOMETRIOSIS N USE OF BLOOD THINNERS N SKIN PROBLEMS N GASTROINTESTINAL DISORDER N PERIPHERAL VASCULAR DISEASE N MUSCLE,JOINT OR BONE PROBLEMS N GASTROINTESTINAL BLEEDING N BLOOD CLOTS N ASTHMA Y CATARACTS N ERECTILE DYSFUNCTION N VARICOSITIES N GI PROBLEMS N Low Testosterone N INFERTILITY N AIDS/HIV N CHEMOTHERAPY / RADIATION N LIVER DISEASE N MALE HYPOGONADISM N HYPERTENSION N Deficiency N TOURETTE'S N ANXIETY DISORDER N BLOOD TRANSFUSION N ANEMIA/BLOOD DISORDER N CHRONIC EAR INFECTIONS N BRONCHITIS N TUBERCULOSIS N GLAUCOMA N FOOT PROBLEM N DIVERTICULITIS N SLEEP APNEA N CHICKENPOX N INFECTIOUS DISEASE N PROSTATE N HEART ARRHYTHMIA N INSOMNIA N HIGH CHOLESTEROL / HYPERLIPIDEMIA N HYPERTHYROIDISM N EYE PROBLEMS N EDEMA N CHRONIC PAIN SYNDROME N HYPOTHYROIDISM N CONSTIPATION N CAROTID BLOCKAGE N BACK / NECK PROBLEMS N HAVE YOU BEEN HOSPITALIZED OR SEEN IN [facility] IN THE PAST YEAR ? N ATHEROSCLEROSIS N BREAST PROBLEMS N DIALYSIS N ECZEMA N OSTEOPOROSIS N ARTHRITIS Y NO SIGNIFICANT PAST MEDICAL HISTORY N APPENDICITIS N DIABETES, TYPE N BAD TEETH N ENT N HEARTBURN / REFLUX N AUTISM SPECTRUM DISORDER (ASD) N HEPATITIS / LIVER DISEASE N GOUT N SLEEP DISORDER N ALZHEIMER'S DISEASE N Brain Problems N HERPES N DEMENTIA N SEIZURES/EPILEPSY N HEADACHES/MIGRAINES Y VASCULAR DISEASE N PACEMAKER N Blood Disorder N DIZZINESS N KIDNEY DISEASE N HEART DISEASE/HEART PROBLEMS N MULTIPLE SCLEROSIS N CARDIAC ARRHYTHMIA N CANCER: SPECIFY N Gall Stones N ATRIAL FIBRILLATION N PULMONARY EMBOLISM N AUTOIMMUNE DISEASE N Gynecological HistoryNo gynecological history recorded. Obstetrics History GPAL:G 0 P 0 0 0 0 Immunizations Vaccine Type Date Status Note Provider Nam e and Address Organization Details Recorded Time SARS-COV-2 (COVID-19) vaccine, UNSPECIFIED 3 completed Lilly villatoro [facility] My Dentist [facility] [employer] 08/04/2023 10:35:58 influenza, unspecified formulation 3 completed Lilly Slecka [employer] [place] [employer] [facility] [employer] [facility] 08/04/2023 10:36:14 SARS-COV-2 (COVID-19) vaccine, UNSPECIFIED 4 completed Lilly Raycka null [facility] My [facility]ist [facility] 05/31/2024 11:14:14 influenza, unspecified formulation 4 completed Lilly Raycka Manifest [facility] [employer] [facility] 05/31/2024 11:14:30 Respiratory syncytial virus (RSV) MAB, unspecified 4 completed Lilly villatoro [place] [facility] 05/31/2024 11:15:16 SARS-COV-2 (COVID-19) vaccine, UNSPECIFIED 1 completed Not Available [facility] 10/22/2022 06:46:47 SARS-COV-2 (COVID-19) vaccine, UNSPECIFIED 1 completed Not Available [facility] 10/22/2022 06:46:47 COVID-19, mRNA, LNP-S, PF, 30 mcg/0.3 mL dose 1 completed Not Available [facility] 10/22/2022 06:46:47 Influenza, high-dose, quadrivalent, PF 1 completed Not Available [facility] 10/22/2022 06:46:48 Influenza, high-dose, quadrivalent, PF 0 completed Not Available [facility] 10/22/2022 06:46:48 Influenza, high-dose, trivalent, PF 8 completed Not Available [facility] 10/22/2022 06:46:48 Influenza, high-dose, trivalent, PF 7 completed Not Available [facility] 10/22/2022 06:46:48 Influenza, high-dose, trivalent, PF 6 completed Not Available [facility] 10/22/2022 06:46:48 pneumococcal polysaccharide PPV23 6 completed Not Available [facility] 10/22/2022 06:46:48 Pneumococcal conjugate PCV 13 4 completed Not Available [facility] 10/22/2022 06:46:49 Past Encounters Encounter ID Performer Location Encounter Start Date Encounter Closed Date Diagnosis/Indication Diagnosis SNOMED-CT Code Diagnosis ICD10 Code Diagnosis Note [id number] [facility] [address] [place] [address] 03/01/2021 00:00:00 03/01/2021 14:37:10 [id number] [facility] [place] [address] [place] [address] 04/10/2021 00:00:00 05/09/2021 10:30:51 [id number] [facility] [place] [address] [place] [address] 04/17/2021 00:00:00 04/17/2021 10:24:30 [id number] [facility] [place] [address] [place] [address] 04/17/2021 00:00:00 04/17/2021 16:50:30 [id number] [facility] [place] [address] [place] [address] 04/30/2021 00:00:00 04/30/2021 12:55:26 [id number] [facility] [place] [address] [place] [address] 05/21/2021 00:00:00 05/21/2021 12:44:02 [id number] [facility] [place] [address] [place] [address] 06/04/2021 00:00:00 06/04/2021 09:42:36 [id number] [facility] [place] [address] [place] [address] 08/06/2021 00:00:00 08/06/2021 09:43:21 [id number] [facility] [place] [address] [place] [address] 10/01/2021 00:00:00 10/01/2021 15:10:40 [id number] [facility] [place] [address] [place] [address] 02/21/2022 00:00:00 02/21/2022 11:17:17 [id number] [facility] [place] [address] [facility] [place] [address] 08/29/2022 00:00:00 08/29/2022 10:57:58 [id number] Kala Tesfaye MD [facility] [place] [address] [place] [address] luis [place]er, [place] [address] 02/27/2023 11:12:37 02/27/2023 11:44:36 Adult health examination 514490863 Z00.00 Screening for disorder 174592357 Z13.9 Asthma 393963834 J45.90 9 Anxiety disorder 9342870 06 F41.9 Migraine 82949093 G43.90 9 Polyp of colon 68679717 K63.5 Screening for cardiovascular system disease 585521095 Z13.6 Vitamin D deficiency 347 55687 E55.9 [id number] Kala Tesfaye MD [facility] [place] [address] [place] [address] y , [place] [address] 08/04/2023 10:29:23 08/04/2023 10:59:24 Polyp of colon 42210074 K63.5 Senile osteoporosis 1804 0001 M81.0 Asthma 246816113 J45.90 9 Gastroesop hageal reflux disease 966822074 K21.9 Migraine 83256120 G43.90 9 [id number] Kala Tesfaye MD [facility] [place] [address] [place] [address] luis [place], [place] [address] 12/01/2023 11:10:11 12/01/2023 11:41:57 Gastroesophageal reflux disease 728290234 K21.9 Asthma 255587800 J45.90 9 Hernia of anterior abdominal wall 409170565 K43.9 Screening for cardiovascular system disease 677268980 Z13.6 Bradycardia 67238363 R00 .1 Hyperlipidemia 05759528 E78.5 [id number] Kala Tesfaye MD [facility] [place] [address] [place] [address] luis Forrester, [place] [address] 05/31/2024 11:08:32 05/31/2024 11:59:19 Adult health examination 035284963 Z00.00 Screening for disorder 821960263 Z13.9 Atrial fibrillation 4943 6004 I48.91 Anxiety disorder 2131378 06 F41.9 Gastroesop hageal reflux disease 912150678 K21.9 Health Concerns Section Related Observation LastModified by Organization Detai ls LastModified Time None Recorded Concern Status LastModified by Organization Details LastModified Time None Recorded Advance Directives Directive Y: Payers Encounter Date Sequence Insurance Name Policy Number Policy Mead Covered Member ID Mead Member ID Guarantor Name 02/27/2023 1 [place] Suzy Mireles [id number] Suzy Mireles 02/27/2023 2 [place] 111 Suzy Mireles [id number] Suzy Mireles 08/04/2023 1 [place] Suzy Mckinleyuer [id number] Suzy Mckinleyuer 08/04/2023 2 [place] 111 Suzy Mireles [id number] Suzy Mckinleyuer 12/01/2023 1 [place] Suzy Mireles [id number] Suzy Mireles 12/01/2023 2 [place] [employer] [place] 111 Suzy Mireles [id number] Suzy Mckinleyuer 05/31/2024 1 [place] Suzy Mireles [id number] 0 Suzy Mireles 05/31/2024 2 [place] [employer] [place] 111 Suzy Mireles [id number] Suzy Mireles Notes Date Note Type Note Provider Name and Address Organization Details Recorded Time 3 text/htm l Patient Name: Suzy MirelesDate Of Service: Thursday ( 02.27.2023 ): 1950 Age: 72 There has been approximately a 4 lb weight loss since 08/29/2022. This represents approximately a 3.2% change in weight. Weight change attributable to lifestyle changes. Vital Signs:Blood Pressure: Sitting Rt. Arm 120/84Pulse: Sitting 78 /min and RegularRespirations: 12Height 63 in or 1.6 mWeight 120 lb or 54.4 kgBMI 21.3Temperature: 97 F or 36.1 CPulse Oximetry: 97 % at rest on no oxygen Chief Complaint: Addressed in HPI Problems or conditions discussed in the HPI were the only ones reviewed during the encounter.Only social and family history addressed in the HPI were reviewed during this encounter. A significant, separate E/M service was performed to evaluate the current and new problems. Attendant(s): None Constitutional and Systemic Symptoms: none Medication Reconciliation: from medication list. Rfeexbjhvvz50/25/2022: Bone density scan and mammography performed on 03/17/2022 demonstrated normal mammogram. Bone density scan did show osteoporosis of the hip in L1-L2. Needs to be on vitamin-D as well as Fosamax or other bisphosphonates.03/21/2022: Twenty-four urine and creatinine clearance from 03/21/2022 demonstrated GFR over 78 L per minute. Normal 24 urine protein. History of Present Illness Reviewed the findings of the preventative health visit. Addressed all areas with the patient, patient's family or caregivers. Preventative examinations and testing immunizations - vaccinations, colonic neoplasm screening, mammograms and DEXA Scan all reviewed and ordered where patient was amenable to the recommendations. Cognitive function was normal. Depression addressed and where necessary medications were adjusted or instituted. End of life and living will briefly discussed with patient and where these can be filled out and legally executed. Other blood and imaging studies were ordered if considered necessary. Other recommendations may be found in the encounter note. #1. Hx of asthma. Daily medications: Proventil, Spiriva and Wixela Inhub. Uses bronchodilators very infrequently. Night time exacerbations: 3-4 times monthly There has been no cough, congestion, or sputum production. No changes in exercise tolerance. Denies any fever or chills. Tolerating the medications without problems. The current status could be classified as mild persistent asthma. Using nebulizer Treatments: No. #2. Anxiety Disorder: History of anxiety disorder. There has been no panic attacks. No interval complaints of any vegetative or other signs of depression. Taking no medication. Discussed possibility of decreasing and weaning off medication. Feels that current regimen is working fine and wishes not to change the current treatment regimen. Medication not causing any sedation or cognitive dysfunction and there is no contraindication to continue current therapy. #3. Hx of migraines currently stable: No change in duration, frequency or intensity of headaches. Occurs at a frequency of approximately weekly. Location: generalized area. Associated Symptoms: nausea and photophobia Hx of CVS no hx. Currently taking Nurtec Odt and Zomig. The headaches are adequately controlled. MIDAS Level: 6-10 Mild Disability #4. Colon polyps: Hx of colon polyps. No interval complaints of any bleeding or change in bowel habits. Last colonoscopy was longer than five years ago.Medication List Reviewed and Reconciled 02/27/2023imecrolimus 1% (CREAM - TOPICAL) Aplly As DirecetdProventil 2 Puffs Qid PrnFlonase 0.05 MG/SPRAY (SPRAY, METERED - NASAL) Two Sprays Each Nostril Once DailyZomig 5 MG (TABLET - ORAL) As DirectedWixela Inhub 0.1 MG/INH- 0.05 MG /INH (POWDER - INHALATION) One EverySpiriva As DirectedFosamax 70 MG TABLET Q WeeklyNurtec Odt 75 MG/75MG TABLET, ORALLY DISINTEGRATING One As DirectedADRs List Reviewed 02/27/2023Lisinopril CoughVaccination and Sqvivbtzbeob5696-78 Koeqjnmsf2381-69 Covid Booster Oqyeur4265-21 Covid Xgwshf0294-90 Prevnar 919048-25 Pneumovax (high RiskSurgical HistoryBurns, Vaginal Hysterectomy, AppendectomyPreventative Testing Confirmed by Our Eaixrxw2909/08/2022 ALBUMIN 4.4 G/DL03/17/2022 MAMMOGRAM DEXA SCAN10/12/2015 COLONOSCOPY (5 YEARS) / LETTER OPHTHALMOLOGYSocial HistorySOCIAL HISTORY:Marital Status: MLiving Status: With SpouseOccupational Exposure:Smoking Hx: 2 packs of cigarettes per day for 17 years. Quit 1966 Drinking Hx: 8 oz of tea per day.Exercise: InfrequentlySexual Hx: Sexually ActiveOccupation: Computer OperatorFamily HistoryFAMILY HISTORY:Mother 64 years oldFather 76 years old1 Brothers 1 Living4 Sisters 3 Living one killed by MVA as childMother Hx: Ca of LungFather Hx: Ca of Stomach Kala Tesfaye MD [address] [facility], [facility] [address], [place], [address], [place] [employer] 02/27/2023 11:39:20 3 text/htm l Patient Name: Suzy Faulkner Of Service: Thursday ( 08.04.2023 ): 1950 Age: 73 There has been approximately a 2 lb weight gain since 02/27/2023. This represents approximately a 1.7% change in weight. Weight change attributable to lifestyle changes. Vital Signs:Blood Pressure: Sitting Rt. Arm 118/78Pulse: Sitting 80 /min and RegularRespiratory Rate: 12Height 63 in or 1.6 mWeight 122 lb or 55.3 kgBMI 21.6Temperature: 97 F or 36.1 CPulse Oximetry: 95 % at rest on no oxygen Chief Complaint: Addressed in HPI Problems or conditions discussed in the HPI were the only ones reviewed during the encounter.Only social and family history addressed in the HPI were reviewed during this encounter. Attendant(s): NoneConstitutional and Systemic Symptoms:none Medication Reconciliation: from medication list. AnnotationsBone density scan and mammography performed on 03/17/2022 demonstrated normal mammogram. Bone density scan did show osteoporosis of the hip in L1-L2. Needs to be on vitamin-D as well as Fosamax or other bisphosphonates.Twenty-four urine and creatinine clearance from 03/21/2022 demonstrated GFR over 78 L per minute. Normal 24 urine protein. History of Present Illness #1. Hx of esophageal reflux currently stable. Hx of Complications: none The severity, duration and intensity of symptoms have improved. Frequency: infrequent Treatment consists medications taken on intermittent basis. Current therapy includes no medication. There has been eructation, Nausea and dysphagia. No change in he frequency or intensity of symptoms. Has had no melena. Has had no hematemesis. Discussedthe possibility of trying to reduce the frequency of the use of any PPI inhibitors and try H2 antagonists to see if symptoms can be controlled with lease intensive therapy since a number of complications are associated with chronic prolonged use of PPI inhibitors. #2. Colon polyps: Hx of colon polyps. No interval complaints of any bleeding or change in bowel habits. Last colonoscopy was longer than five years ago. #3. osteoporosis. No new complaints of any additional back,hip or other musculoskeletal complaints related to the osteoporosis. No hx of any recent trauma. Currently taking OsCal-D and Fosamax. Has has had a recent DEXA scan done within the last year. The FRAX Score for Hip Fracture is NA hx osteoporosis FRAX score for major fractures NA hx of osteoporosis #4. Hx of asthma. Daily medications: none. Uses bronchodilators very infrequently. Night time exacerbations: less than 2 times monthly There has been no cough, congestion, or sputum production. No changes in exercise tolerance. Denies any fever or chills. Tolerating the medications without problems. The current status could be classified as mild persistent asthma. Using nebulizer Treatments: No. #5. Hx of migraines currently stable: No change in duration, frequency or intensity of headaches. Occurs at a frequency of approximately weekly. Location: generalized area. Associated Symptoms: photophobia Hx of CVS no hx. Currently taking Nurtec but had to stop because of nausea.. The headaches are fairly well controlled. MIDAS Level: 6-10 Mild DisabilityMedication List Reviewed and Reconciled 08/04/2023imecrolimus 1% (CREAM - TOPICAL) Aplly As DirecetdProventil 2 Puffs Qid PrnFlonase 0.05 MG/SPRAY (SPRAY, METERED - NASAL) Two Sprays Each Nostril Once DailyZomig 5 MG (TABLET - ORAL) As DirectedWixela Inhub 0.1 MG/INH- 0.05 MG /INH (POWDER - INHALATION) One EverySpiriva As DirectedFosamax 70 MG TABLET Q WeeklyNurtec Odt 75 MG/75MG TABLET, ORALLY DISINTEGRATING One As DirectedADRs List Reviewed 08/04/2023Lisinopril CoughVaccination and Qiwwfwvazxic1303-79 Gcaqyoxal4962-61 Covid Booster Rtlmkh1749-85 Covid Qjjcgl2304-18 Prevnar 13 Kx2066-04 PneumovaxSurgical HistoryBurns, Vaginal Hysterectomy, AppendectomyPreventative Testing Confirmed by Our Wyhlrap1704/22/2023 ALBUMIN 4.3 G/DL N003/17/2022 MAMMOGRAM / DEXA SCAN10/12/2015 COLONOSCOPY (5 YEARS) / OPHTHALMOLOGYSocial HistorySOCIAL HISTORY:Marital Status: MLiving Status: With SpouseOccupational Exposure:Smoking Hx: 2 packs of cigarettes per day for 17 years. Quit 1966 Drinking Hx: 8 oz of tea per day.Exercise: InfrequentlySexual Hx: Sexually ActiveOccupation: Computer OperatorFamily HistoryFAMILY HISTORY:Mother 64 years oldFather 76 years old1 Brothers 1 Living4 Sisters 3 Living one killed by MVA as childMother Hx: Ca of LungFather Hx: Ca of Stomach Kala Tesfaye MD [address] [facility], [facility] [address], [place], [address], [facility] [place] [employer] [facility] 08/04/2023 10:51:43 4 text/htm l Patient Name: Suzy Faulkner Of Service: Thursday ( 12.01.2023 ): 1950 Age: 73 Chief Complaint: Addressed in HPI Problems or conditions discussed in the HPI were the only ones reviewed during the encounter.Only social and family history addressed in the HPI were reviewed during this encounter. Attendant(s): NoneConstitutional and Systemic Symptoms:none Medication Reconciliation: from medication list. AnnotationsBone density scan and mammography performed on 03/17/2022 demonstrated normal mammogram. Bone density scan did show osteoporosis of the hip in L1-L2. Needs to be on vitamin-D as well as Fosamax or other bisphosphonates. History of Present Illness #1. Hx of asthma. Daily medications: Proventil, Spiriva and Wixela Inhub. Uses bronchodilators several times per month. Night time exacerbations: 3-4 times monthly There has been no cough, congestion, or sputum production. No changes in exercise tolerance. Denies any fever or chills. Tolerating the medications without problems. The current status could be classified as mild persistent asthma. Using nebulizer Treatments: No. #2. Hx of esophageal reflux currently stable. Hx of Complications: none The severity, duration and intensity of symptoms have improved. Frequency: infrequent Treatment consists medications taken on no regular basis. Current therapy includes no medication. There has been no nausea, eructation, vomiting, hematemesis, dysphagia, velopharyngeal insufficiency and odynophagia. No change in he frequency or intensity of symptoms. Has had no melena. Has had no . Discussed use of H2 antagonists NA. #3. 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 Clinically stable. No signs of any type of bowel obstruction fully reducible by simply assuming recumbent position but markedly exacerbated by standing up. Likely secondary to poor abdominal musculature. Is doing oblique and other abdominal exercises try to improve tone. CT scan of the abdomen negative for any gross hernia. Has been seen by surgery as well. Active Medication ListProventil 2 Puffs Qid PrnZomig 5 MG (TABLET - ORAL) As DirectedWixela Inhub 0.1 MG/INH- 0.05 MG /INH (POWDER - INHALATION) One EverySpiriva As DirectedAdverse Drug Reactions ReviewedLisinopril Cough Vaccination and Fcwzxvlocxkb2543-73 Thfqnfvlb3606-42 Covid Booster Unhbyt0719-55 Covid Bsqstq6517-90 Prevnar 13 Xl7215-52 Pneumovax Surgical Uefiwua3878-35 Xufba7172-72 Vaginal Rytboystmczz1695-45 Appendectomy Preventative Hgjbkrp2304/22/2023 ALBUMIN 4.3 G/DL N003/17/2022 MAMMOGRAM / DEXA SCAN10/12/2015 COLONOSCOPY (5 YEARS) / OPHTHALMOLOGY Social HistorySOCIAL HISTORY:Marital Status: MLiving Status: With SpouseOccupational Exposure:Smoking Hx: 2 packs of cigarettes per day for 17 years. Quit 1966 Drinking Hx: 8 oz of tea per day.Exercise: InfrequentlySexual Hx: Sexually ActiveOccupation: Computer OperatorFamily HistoryFAMILY HISTORY:Mother 64 years oldFather 76 years old1 Brothers 1 Living4 Sisters 2 Living one killed by MVA as child and the other of complications of C:OPD, Liver and Drug AddictionMother Hx: Ca of LungFather Hx: Ca of Stomach Kala Tesfaye MD [address] [facility], [facility] [address], [address], [facility] 12/01/2023 11:36:51 4 text/htm l Patient Name: Suzy Faulkner Of Service: Thursday ( 05.31.2024 ): 1950 Age: 73 There has been approximately a 5 lb weight loss since 08/04/2023. This represents approximately a 4.1% change in weight. Weight change attributable to lifestyle changes. Vital Signs:Blood Pressure: Sitting Rt. Arm 124/62Pulse: Sitting 80 /min and RegularRespiratory Rate: 14Height 63 in or 1.6 mWeight 117 lb or 53.1 kgBMI 20.7Temperature: 97 F or 36.1 CPulse Oximetry: 97 % at rest on no oxygen Chief Complaint: Addressed in HPI Problems or conditions discussed in the HPI were the only ones reviewed during the encounter.Only social and family history addressed in the HPI were reviewed during this encounter. Attendant(s): NoneConstitutional and Systemic Symptoms:none Medication Reconciliation: from medication list. History of Present Illness Reviewed the findings of the preventative health visit. Addressed all areas with the patient, patient's family or caregivers. Preventative examinations and testing immunizations - vaccinations, colonic neoplasm screening and mammograms all reviewed and ordered where patient was amenable to the recommendations. Cognitive function was normal. Depression addressed and where necessary medications were adjusted or instituted. End of life and living will briefly discussed with patient and where these can be filled out and legally executed. Other blood and imaging studies were ordered if considered necessary. Other recommendations may be found in the encounter note. #1. Atrial Fibrillation: Type: First detected. Further classification: Non-valvular. Associated history of none. No attending hx of any shortness of breath, palpitations, syncopal or neurological symptoms. Current medications: no specific medication. Rate control: controlled ventricular response [id number] Criteria: Age 65-74 and and considered low risk for embolic phenomenon. Anticoagulation: Done by Cardiology this juncture. #2. Anxiety Disorder: History of anxiety disorder. There has been no panic attacks. No interval complaints of any vegetative or other signs of depression. Taking no medication and Current history of asthma currently clinically stable. Presently taking the Proventil inhaler, Spiriva as well as the Wixela Inhub. Discussed possibility of decreasing and weaning off medication. Feels that current regimen is working fine and wishes not to change the current treatment regimen. Medication not causing any sedation or cognitive dysfunction and there is no contraindication to continue current therapy. #3. Hx of esophageal reflux currently stable. Hx of Complications: none The severity, duration and intensity of symptoms have improved. Frequency: infrequent Treatment consists medications taken on no regular basis. Current therapy includes no medication. There has been no nausea and eructation. No change in he frequency or intensity of symptoms. Has had no melena. Has had no . Discussed use of H2 antagonists NA. Active Medication ListProventil 2 Puffs Qid PrnFlonase 0.05 MG/SPRAY (SPRAY, METERED - NASAL) Two Sprays Each Nostril Once DailyZomig 5 MG (TABLET - ORAL) As DirectedWixela Inhub 0.1 MG/INH- 0.05 MG /INH (POWDER - INHALATION) One EverySpiriva As Directed Adverse Drug Reactions ReviewedLisinopril Cough Vaccination and Immunization( ) 2003- PNEUMOVAX( ) 2024-05 INFLUENZA(X) 2014-07 PREVNAR 13 GC PREVNAR 20 Needed( ) 2020-10 COVID PFIZER( ) 2024-05 COVID BOOSTER PFIZER(X) 2024-04 RSV Surgical Fosgmeq8999-37 Gfeea7529-97 Vaginal Xtuicbieslya3231-46 Appendectomy Preventative Testing( ) 04/29/2024 Albumin 4.1 G/DL N(X) 03/17/2022 Mammogram 03/17/2024(X) 03/17/2022 DEXA Scan 03/17/2024(X) 10/12/2015 Colonoscopy (5 Years) 10/12/2020( ) 03/14/2014 Ophthalmology Social HistorySOCIAL HISTORY:Marital Status: MLiving Status: With SpouseOccupational Exposure:Smoking Hx: 2 packs of cigarettes per day for 17 years. Quit 1966 Drinking Hx: 8 oz of tea per day.Exercise: InfrequentlySexual Hx: Sexually ActiveOccupation: Computer OperatorFamily HistoryFAMILY HISTORY:Mother 64 years oldFather 76 years old1 Brothers 1 Living4 Sisters 2 Living one killed by MVA as child and the other of complications of C:OPD, Liver and Drug AddictionMother Hx: Ca of LungFather Hx: Ca of Stomach TEST RESULT RANGE UNITSCOMPREHENSIVE METABOLIC PANEL Date: 04/29/2024SODIUM 140 135-146 MMOL/LPOTASSIUM 4.4 3.5-5.3 MMOL/LGLUCOSE 72 65-99 MG/DLUREA NITROGEN (BUN) 15 7-25 MG/DLCREATININE 0.98 0.60-1.00 MG/DLEGFR 61 > OR = 60 ML/MIN/1.48G5TPIHCKGTV, TOTAL 0.8 0.2-1.2 MG/DLALKALINE PHOSPHATASE 133 37-153 U/LAST 35 10-35 U/LALT 30 6-29 U/LLIPID PANEL, STANDARD Date: 4CHOLESTEROL, TOTAL 161 <200 MG/DLHDL CHOLESTEROL 79 > OR = 50 MG/DLTRIGLYCERIDES 58 <150 MG/DLLDL-CHOLESTEROL 69 MG/DL (CALC) Kala Tesfaye MD [address] [facility], [facility] [address], [place], [address], [place] [facility] 05/31/2024 11:46:10 OBGyn Episode No OBEpisode recorded.
--- OUTSIDE RECORDS SUMMARY | 2024-09-21 17:10 | XMS_ITS | Encounter Summary ---
Author Organization [facility] Address [address] [place] [address] Phone Care Team Providers Care Biodiesel Engineering Manager Name Role Phone Saul Tesfaye MD Primary Care Provider Helen Mullen APRN, [employer] Unavailable Encounter Details Date Type Department Care Team (Late st Contact Info) Description 09/15/2024 Results Follow-Up [facility] - Gastroenterology - [place] [address] [place] [address] Alfonso Cornelius MD [address] [facility] [address] [place] [address] Social History Tobacco Use Types Packs/Day Years Used Date Smoking Tobacco: Former Cigarettes Q uit: 1994 Smokeless Tobacco: Never Alcohol Use Standard Drinks/Week Comments Not Currently 0 (1 standard drink = 0.6 oz pur e alcohol) Comments Unknown Sex and Gender Information Value Date Recorded Sex Assigned at Not on file Legal Sex Female 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
--- OUTSIDE RECORDS SUMMARY | 2024-09-21 17:10 | XMS_ITS | CONTINUITY OF CARE DOCUMENT ---
Author Name maryann wolf Address Unknown Organization [facility] Address [address] [place] [address] [address] [place] [address] Phone [phone] Care Team Providers Care Military Administrative Technician Name Role Phone Bret MARC, Faisal Unavailable [phone] FITO MARC, KALA Unavailable FITO MARC, KALA Unavailable [phone] INSURANCE PROVIDERS Payer name Policy type / Coverage type [place] red democrat ID [facility] [id number] [place] Medicare [id number]
--- OUTSIDE RECORDS SUMMARY | 2024-09-21 17:10 | XMS_ITS | Clinical Summary ---
Author Organization [facility] Address [address] [place] [address] Phone Care Team Providers Care Dietetic Tech Name Role Phone Saul Tesfaye MD Primary Care Provider [phone] Helen Mullen APRN, EXPERIENCE PLANNING STRATEGIST Unavailable Allergies No known active allergies Medications ALPRAZolam (XANAX) 0.5 MG Tablet take 1 tablet by mouth three times daily as needed Active Wixela Inhub 500-50 MCG/ACT AEROSOL POWDER, BREATH ACTIVATED USE 1 INHALATION ORALLY TWICE DAILY 4 Active tiotropium (SPIRIVA) 18 MCG Capsule every morning. Act kaley ZOLMitriptan (ZOMIG) 5 MG Tablet as needed. Active ALBUTEROL IN take by inhalation. Active probiotic (VSL#3) Pack 1 Packet by Per NG tube route daily. Active Psyllium (METAMUCIL PO) Take by mouth daily. Active Calcium Carbonate Antacid (GAVISCON ACID BRKTHRGH FORMULA PO) Take by mouth every evening. Active fluticasone (FLONASE) 50 MCG/ACT Suspension 1 [place] by Nasal route as needed. Use in each nostril as directed. Active Active Problems No known active problems Encounters Date Type Department Care Team Description 5 Results Follow-Up [facility] - Gastroenterology - [place] [address] [place] [address] Alfonso Cornelius MD 5 8:30 AM ASSEMBLER METAL BUILDING - 5 9:00 AM ASSEMBLER METAL BUILDING Surgery [facility] [address] [address] [place] [address] Alfonso Cornelius MD EGD-GASTRIC BIOPSIES, GE JUNCTION BIOPSIES RULE OUT MEDEIROS'S ESOPHAGUS 5 8:00 AM ASSEMBLER METAL BUILDING Anesthesia Event [facility] [address] [place] [address] David Lemos APRN, PLANNING TECHNICIAN 5 7:10 AM ASSEMBLER METAL BUILDING Ancillary Procedure [facility] Main [address] [place] [address] Alfonso Cornelius MD Provider, Anesthesiologist 5 7:00 AM ASSEMBLER MET[employer] BUILDING - 5 8:55 AM ASSEMBLER METAL BUILDING Hospital Encounter [facility] Preop/Pacu II [address] [place] [address] Alfonso Cornelius MD Discharge Disposition: Discharged to home or Selfcare 5 Travel 5 Travel 4 10:30 AM ASSEMBLER METAL BUILDING Office Visit [facility] [place] [facility] - Gastroenterology - [place] [address] [place] [address] Helen Mullen APRN, EXPERIENCE PLANNING STRATEGIST Gastroesophageal reflux disease, unspecified whether esophagitis present (Primary Dx); Dysphagia, unspecified type; Family history of stomach cancer Discharge Disposition: Discharged to home or Selfcare 4 Travel from Last 3 Months Family History Medical History Relation Name Comments Cancer Father STOMACH Cancer Mother LUNG Relation Name Status Comments Father Mother Social History Tobacco Use Types Packs/Day Years Used Date Smoking Tobacco: Former Cigarettes Q uit: 1994 Smokeless Tobacco: Never Alcohol Use Standard Drinks/Week Comments Not Currently 0 (1 standard drink = 0.6 oz pur e alcohol) Comments Unknown Sex and Gender Information Value Date Recorded Sex Assigned at Not on file Legal Sex Female 11:10 AM ASSEMBLER METAL BUILDING Gender Identity Not on file Sexual Orientation Not on file Last Filed Vital Signs Vital Sign Reading Time Taken Comments Blood Pressure 139/80 09/13/2024 8:46 AM ASSEMBLER METAL BUILDING Pulse 78 09/13/2024 8:46 AM ASSEMBLER METAL BUILDING Temperature 37 ??C (98.6 ??F) 09/13/2024 8:46 AM ASSEMBLER METAL BUILDING Respiratory Rate 18 09/13/2024 8:46 AM ASSEMBLER METAL BUILDING Oxygen Saturation 100% 09/13/2024 8:46 AM ASSEMBLER METAL BUILDING Inhaled Oxygen Concentration - - Weight 52.2 kg (115 lb) 09/07/2024 11:37 AM ASSEMBLER METAL BUILDING Height 160 cm (5' 3 ) 09/07/2024 11:37 AM ASSEMBLER METAL BUILDING Body Mass Index 20.37 09/07/2024 11:37 AM ASSEMBLER METAL BUILDING Plan of Treatment Health Maintenance Due Date Last Done Comments DEXA Bone Density 1950 Hepatitis C Virus (HCV) Screening 1950 TdaP Immunization 1949 Colonoscopy 1994 Colorectal Cancer Screening 1994 Cologuard 1999 Immunochemical Fecal Occult Blood 1999 Zoster Immunization (1 of 2) 1999 SARS-COV-2 Immunization ( season) 2024 05/30/2024, 07/06/2023, 06/03/2023, Additional history exists Pneumococcal Immunization (50+ years) Completed 03/07/2016, 08/11/2014 Pneumococcal Immunization Combined Discontinued 03/07/2016, 08/11/2014 Respiratory Syncytial Virus (RSV) Immunization (Adult) Completed 05/01/2024, 04/06/2024 Influenza Immunization Completed , 07/06/2023, 06/03/2023, Additional history exists Hepatitis B Immunization Aged Out No longer eligible based on patient's age to complete this topic Meningococcal Immunization (ACWY) Aged Out No longer eligible based on patient's age to complete this topic Rotavirus Immunization Aged Out No lo nger eligible based on patient's age to complete this topic Procedures Procedure Name Priority Date/Time Associated Diagnosis Comments PATHOLOGY SURGICAL Routine 09/13/2024 8:10 AM ASSEMBLER METAL BUILDING LA ESOPHAGOGASTRODUODENOSCOP Y TRANSORAL DIAGNOSTIC 09/13/2024 8:03 AM ASSEMBLER METAL BUILDING EGD-GASTRIC BIOPSIES, GE JUNCTION BIOPSIES RULE OUT MEDEIROS'S ESOPHAGUS Special Needs CC/FRAILY in media 09/08 Dx reflux LA EGD FLEXIBLE TRANSNASAL D X W/COLLJ SPEC BR/WA 09/13/2024 8:03 AM ASSEMBLER METAL BUILDING EGD-GASTRIC BIOPSIES, GE JUNCTION BIOPSIES RULE OUT MEDEIROS'S ESOPHAGUS Special Needs CC/FRAILY in media 09/08 Dx reflux GI LAB IMAGING - EGD Routine 09/13/2024 7:08 AM ASSEMBLER METAL BUILDING from Last 3 Months Results * Pathology Surgical (09/13/2024 8:10 AM ASSEMBLER METAL BUILDING) Case Report Surgical Pathology Report ? Case: [id number] ? Authorizing Provider: ??Alfonso Cornelius MD ?Collected: ? 09/13/2024 08:10 AM ? Ordering Location: ? [facility] ? Received: ?09/13/2024 08:31 AM ? [facility] ? Lab Main ? Pathologist: ? Roxy Loredo MD PhD ? Specimens: ?? A) - Stomach, GASTRIC BIOPSIES ? B) - GE Junction, GE JUNCTION BIOPSIES RULE OUT MEDEIROS'S ESOPHAGUS ? 09/14/2024 10:32 AM [facility] FINAL DIAGNOSIS A. Stomach, gastric biopsy: - Gastric mucosa with focal mild chronic inflammation - Negative for acute inflammation or H. pylori by H&E stain B. GE junction, rule out Medeiros's esophagus, biopsy: - Gastric mucosa with focal mild chronic inflammation - Negative for acute inflammation or H. pylori by H&E stain - Negative for intestinal metaplasia 09/14/2024 10:32 AM [facility] at [address] [employer] Pre-Operative Diagnosis GASTRO REFLUX 09/14/2024 10:32 AM [facility] Gross Description A. GASTRIC BIOPSIES The specimen presents in two formalin containers for gross and microscopic examination labeled with the patient's name, Milli Mireles. Part A is designated as gastric biopsy. The specimen consists of four pieces of light marte tissue measuring a fraction of a millimeter up to 0.2 cm in greatest dimension. All submitted cassette A1. It is questionable whether or not all pieces will survive processing. B. GE JUNCTION BIOPSIES RULE OUT MEDEIROS'S ESOPHAGUS Part B is designated as GE junction biopsy, rule out Medeiros's esophagus. The specimen consists of four pieces of light marte tissue measuring 0.1 to 0.2 cm in greatest dimension. All submitted cassette B1. Total time of fixation is 13 hours, 33 minutes. KS/sb 09/14/2024 10:32 AM [facility] Microscopic Description Microscopic examination was performed which supports the final diagnosis. All control tissues stained appropriately. 09/14/2024 10:32 AM ASSEMBLER METAL BUILDING [facility] Tissue STOMACH STRUCTURE / Unknown 09/13/2024 8:10 AM ASSEMBLER METAL BUILDING 09/13/2024 8:31 AM ASSEMBLER METAL BUILDING Tissue specimen (specimen) (GE Junction) 09/13/2024 8:13 AM ASSEMBLER METAL BUILDING 09/13/2024 8:31 AM ASSEMBLER METAL BUILDING us Alfonso Cornelius MD PATHOLOGY/CYTOLOGY ORDERABLES Fi nal Result [facility] [address] [place] [address] * GI LAB IMAGING - EGD (09/13/2024 7:08 AM ASSEMBLER METAL BUILDING) Alfonso Cornelius MD IMG DIAGNOSTIC ORDERABLES Final Result from Last 3 Months Insurance MEDICARE [employer] Care Teams Dietetic Tech Relationship Specialty Start Date End Date Saul Tesfaye MD [address] [facility] [address] [place] [address] PCP - General Internal Medicine 07/05/20 Helen Mullen APRN, EXPERIENCE PLANNING STRATEGIST [address] [place] [address] Nurse Practitioner Advanced Practice Nurse 08/22/24
--- OUTSIDE RECORDS SUMMARY | 2024-09-21 17:10 | XMS_ITS | Clinical Summary ---
Author Organization [facility] Address [address] [place] [address] Care Team Providers Care Corporate Communications Intern Name Role Phone Saul Tesfaye MD Primary Care Provider Allergies No known active allergies Medications Spiriva with HandiHaler 18 mcg per inhalation capsule Place 1 puff (1 capsule total) into inhaler and inhale daily 03/16/2024 Active ZOLMitriptan (ZOMIG) 5 mg tablet Take 1 tablet (5 mg total) by mouth once as needed 08/04/2023 Active fluticasone propion-salmeter oL (ADVAIR DISKUS) 250-50 mcg/dose diskus inhaler Inhale 1 puff 2 (two) times a day Active ALPRAZolam (XANAX) 0.5 mg tablet Take 1 tablet (0.5 mg total) by mouth 3 (three) times a day as needed 04/26/2024 Active aspirin 325 mg tabletIndication s:Atrial fibrillation, unspecified type (HCC) Take 1 tablet (325 mg total) by mouth daily 05/05/2024 05/05/20 25 Active Active Problems Problem Noted Date Diagnosed Date PVC (premature ventricular contraction) 09/05/19 25 Pulmonary hypertension 05/05/2024 MOSS (dyspnea on exertion) 05/05/2024 Chest discomfort 05/05/2024 Atrial fibrillation (CMS/HCC) 05/05/2024 Bradycardia 05/05/2024 Personal history of colonic polyps 08/04/2023 Encounter for screening colonoscopy 08/04/2023 Family history of gastric cancer 08/04/2023 Family history of GERD 08/04/2023 Full thickness macular hole of right eye 016 Vitreous syneresis 09/11/2015 Intermittent alternating exotropia 08/06/2015 Nuclear senile cataract 08/06/2015 Arthritis of right foot 06/14/2015 Acquired deformity of ankle and foot 06/14/2015 Bronchial asthma 03/14/2014 Migraine headache 03/14/2014 Pain of foot 10/14/2013 Encounters Date Type Department Care Team Description 09/05/2024 8:15 AM ADVERTISING CONSULTANT Office Visit [facility] Cardiology at [address] [place] [address] Davey Lopez MD Paroxysmal atrial fibrillation (CMS/HCC) (HCC) (Primary Dx); Pulmonary hypertension (HCC); Bradycardia; PVC (premature ventricular contraction) from Last 3 Months Surgical History Surgery Date Site/Laterality Comments COLONOSCOPY 7 years ago APPENDECTOMY SKIN GRAFT Medical History Medical History Date Comments Asthma COPD (chronic obstructive pulmonary disease) (HC C) Family History Medical History Relation Name Comments Cancer Father Family history of malignant neoplasm - (Added by TW Conv) Stroke Maternal Grandmother Family history of cerebrovascular accident (CVA) - (Added by TW Conv) Cancer Paternal Grandfather Family history of malignant neoplasm - (Added by TW Conv) Stroke Paternal Grandfather Family history of cerebrovascular accident (CVA) - (Added by TW Conv) Stroke Paternal Grandmother Family history of cerebrovascular accident (CVA) - (Added by TW Conv) Relation Name Status Comments Father Maternal Grandmother Mother Paternal Grandfather Paternal Grandmother Social History Tobacco Use Types Packs/Day Years Used Date Smoking Tobacco: Former Smokeless Tobacco: Never Tobacco Cessation:Counseling Given: Not Answered Comments Unknown Sex and Gender Information Value Date Recorded Sex Assigned at Not on file Legal Sex Female 2:22 AM ADVERTISING CONSULTANT Gender Identity Not on file Sexual Orientation Not on file Obstetrics History Last Filed Vital Signs Vital Sign Reading Time Taken Comments Blood Pressure 126/78 09/05/2024 8:07 AM ADVERTISING CONSULTANT Pulse 84 09/05/2024 8:07 AM ADVERTISING CONSULTANT Temperature - - Respiratory Rate - - Oxygen Saturation 97% 09/05/2024 8:07 AM ADVERTISING CONSULTANT Inhaled Oxygen Concentration - - Weight 55.3 kg (122 lb) 09/05/2024 8:07 AM ADVERTISING CONSULTANT Height 160 cm (5' 3 ) 09/05/2024 8:07 AM ADVERTISING CONSULTANT Body Mass Index 21.61 09/05/2024 8:07 AM ADVERTISING CONSULTANT Plan of Treatment Health Maintenance Due Date Last Done Comments Colon Cancer Screening-Colonoscopy 1949 Depression Screening 1949 Fall Risk Assessment 1950 Hepatitis C Screening 1950 DTaP/Tdap/Td Vaccine (1 - Tdap) 1960 Hepatitis B Screening 1967 Zoster Vaccine (1 of 2) 1999 Well Visit 65+ 2014 Covid-19 Vaccine (2023-2 5 season) 2024 06/03/2023, 05/02/2022, 12/03/2021, Additional history exists Osteoporosis Screening-Bone Density Scan 06/28/2026 06/28/2024, 03/17/2022 Pneumococcal vaccine 65+ Completed 03/07/2016, 07/24 Influenza Vaccine Completed 05/30/2024, , 06/03/2023, Additional history exists Insurance MEDICARE [facility] FEDERAL MEDICARE [facility] Care Teams Corporate Communications Intern Relationship Specialty Start Date End Date Saul Tesfaye MD [address] [address] PCP - General Internal Medicine 03/05/22
--- OUTSIDE RECORDS SUMMARY | 2024-09-21 17:10 | XMS_ITS | Referral Summary ---
Author Organization [facility] Address [address] [place] [address] Care Team Providers Care Logistics And Planning Manager Name Role Phone Saul Tesfaye MD Primary Care Provider Encounters Date Type Department Care Team Description 09/05/2024 8:15 AM SUPERVISOR STEEL DIVISION Office Visit [facility] Cardiology at [address] [place] [address] Davey Lopez MD Paroxysmal atrial fibrillation (CMS/HCC) (HCC) (Primary Dx); Pulmonary hypertension (HCC); Bradycardia; PVC (premature ventricular contraction) from Last 3 Months Allergies No known active allergies Medications Spiriva [...] Diagnosed Date PVC (premature ventricular contraction) 09/05/19 Pulmonary hypertension 05/05/2024 MOSS (dyspnea on exertion) [...] Migraine headache 03/14/2014 Pain of foot 10/14/2013 Social History Tobacco Use Types Packs/Day Years Used Date Smoking Tobacco: Former Smokeless Tobacco: Never Tobacco Cessation:Counseling Given: Not Answered Comments Unknown Sex and Gender Information Value Date Recorded Sex Assigned at Not on file Legal Sex Female 2:22 AM SUPERVISOR STEEL [employer] Gender Identity Not on file Sexual Orientation Not on file Last Filed Vital Signs Vital Sign Reading Time Taken Comments Blood Pressure 126/78 09/05/2024 8:07 AM SUPERVISOR [employer] Pulse 84 09/05/2024 8:07 AM SUPERVISOR [employer] Temperature - - Respiratory Rate - - Oxygen Saturation 97% 09/05/2024 8:07 AM SUPERVISOR [employer] Inhaled Oxygen Concentration - - Weight 55.3 kg (122 lb) 09/05/2024 8:07 AM SUPER[employer] Height 160 cm (5' 3 ) 09/05/2024 8:07 AM SUPERVISOR [employer] Body Mass Index 21.61 09/05/2024 8:07 AM SUPERVISOR STEEL [employer]ISION Plan of Treatment Not on file Insurance MEDICARE [facility] Address: [address] [place] [phone] [facility] FEDERAL MEDICARE [facility] [employer] Care Teams Logistics And Planning Manager Relationship Specialty Start Date End Date Saul Tesfaye MD [address] [address] PCP - General Internal Medicine 03/05/22
--- OUTSIDE RECORDS SUMMARY | 2024-09-21 17:12 | XMS_ITS | Continuity of Care Document ---
Author Organization [facility] Address [address] [place] [address] Phone Care Team Providers Care Inkjet Operator Name Role Phone Burciaga OD, Rudy Unavailable Unavailable Advance Directives Directive Yes / No Effective Date File Name No Information Encounters Encounter Description Practice Location Reason(s) For Visit Diagnoses Date Provider Providers Copied on Encounter [facility], [address], [place], [place], [id number], [place] tel:[phone] [facility] No Information Jan- 5-200 0 Burciaga OD Rudy. [address] , [address], [place], [address], [place]. tel:[phone] Family History Family Member Type Diagnosis Age At Onset No Information Payers Payer name Insurance type Covered constitution party ID Authoriza tion(s) No Information Social History [...]
--- OUTSIDE RECORDS SUMMARY | 2024-09-21 17:12 | XMS_ITS | CONTINUITY OF CARE DOCUMENT ---
Author Name maryann wolf Address Unknown Organization [facility] Address [address] [place] [address] [address] [place] [address] Phone [phone] Care Team Providers Care Cartridge Assembling Machine Adjuster Name Role Phone Bret MARC, Faisal Unavailable FITO MARC, KALA Unavailable FITO MARC, KALA Unavailable [phone] INSURANCE PROVIDERS Payer name Policy type / Coverage type [place] red libertarian ID [facility] [id number] [place] Medicare [id number]
[2024-09-21 17:13] VITALS: BP 140/70; PULSE 86; RESP 16; TEMP 36.6; O2SAT 99
--- NOTE | 2024-09-21 17:31 | ED.UPPEXIN ---
HPI - Extremity Injury (Upper) General Chief Complaint: Extremity Injury, Upper Stated Complaint: right forearm injury Time Seen by Provider: 09/21/24 17:22 Source: patient, RN notes reviewed and old records reviewed Mode of arrival: ambulatory Limitations: no limitations History of Present Illness HPI narrative: 74 year old female who presents to [facility] care with coplaints of oosing her balance last evening and fell hitting her right forearm on bottom stair. Patient has skin tear to her right forearm with some bruising and swelling to her forearm. Patient has full mobility of right wrist arm and elbow is able to pronate and supinate right forearm without difficulty.Patient has 7cm X5cm skin tear to right forearm with skin tissue not covering wound bed, bleeding controlled. Tetanus is not up to date. MD complaint: injury to: right and forearm Onset (ago): day(s) (last evening) Other injuries: none Place: home Severity scale (1-10): 3 Treatments prior to arrival: other (wahed skin tear area with soap and water.) Related Data Home Medications ?Medication ?Instructions ?Recorded ?Confirmed ?Last Taken ?Type albuterol sulfate 90 mcg/actuation 1 puff inhalation Q4H PRN 02/06/22 03/30/24 Unknown History aerosol inhaler Shortness Of Breath tiotropium bromide 18 mcg capsule 1 cap inhalation DAILY 02/06/22 03/30/24 Unknown History with inhalation device (Spiriva with HandiHaler) zolmitriptan 5 mg tablet 5 mg PO ONCE 08/13/23 03/30/24 Unknown History fluticasone 500 mcg-salmeterol 50 1 inh inhalation Q12H 09/30/23 03/30/24 Unknown History mcg/dose blistr powdr for inhalation (Wixela Inhub) Allergies Allergy/AdvReac Type Severity Reaction Status Date / Time No Known Allergies Allergy Verified 09/21/24 17:17 Review of Systems Review of Systems: CONSTITUTIONAL: Denies fever, chills, or sweats. EYES: Denies visual changes, redness, or discharge. ENT: Denies rhinorrhea, congestion, sore throat, or otalgia. CARDIOVASCULAR: Denies chest pain, palpitations, or edema. RESPIRATORY: Denies acute cough or dyspnea. GASTROINTESTINAL: Denies abdominal pain, nausea, vomiting, or diarrhea. GENITOURINARY: Denies dysuria or hematuria. SKIN: Positive for skin tear to right forearm with bruising and some swelling of forearm area. MUSCULOSKELETAL: Denies back pain, joint pain, or myalgia. NEUROLOGIC: Denies headache, numbness, or weakness. PSYCHIATRIC: Denies anxiety or depression. All systems reviewed & are unremarkable except as noted in HPI and below PMFSH Past Medical History Medical History Migraine COPD (chronic obstructive pulmonary disease) GERD (gastroesophageal reflux disease) Asthma Surgical History Surgical History History of appendectomy History of surgery on arm Family History Family History Mother Lung cancer Other Family history of malignant neoplasm Social History Social History Smoking packs per day: 2 Smoking cigarettes per day: 40.0 Years smoked: 20 Smoking pack-years: 40.00 Smoking status: Former smoker Tobacco type: cigarettes Second hand tobacco smoke exposure: Yes Smoking end date: 08/24/94 Additional smoking assessment comments: 2 PACKS A DAY FOR LAST 6-7 YEARS Alcohol intake: former Substance use: never Substance use type: does not use Living arrangements: with family Gender identity (if verbalized by the patient): Female Spiritual care concerns: No Comments At time of signature, agree with nursing past medical, surgical, social and family history. There is no relevant family history pertinent to the presenting complaint Exam Narrative: GENERAL: Well-appearing, well-nourished, and in no acute distress. HEAD: Normocephalic, atraumatic. EYES: PERRLA and EOMI. ENT: Nares clear, no rhinorrhea or epistaxis. Mucous membranes moist.TM's normal throat pink with no swelling NECK: Supple.no lymphadenopathy CHEST: Clear to auscultation. No respiratory distress.no acute cough noted SAO2 99% on room air HEART: Regular rate and rhythm. No murmur heard. Normal peripheral pulses. ABDOMEN: Soft, nontender, nondistended, normal active bowel sounds. EXTREMITIES: Normal range of motion. No edema. SKIN: Warm, dry, 7cm X 5cm skin tear to right forearm from fall last evening hitting arm on bottom step, noted bruising and some swelling at skin tear full mobility of arm.wrist and elbow, skin will not cover wound bed patient cleansed with soap and water at home. Wound cleansed in clinic and irrigated, triple antibiotic ointment applied and using sterile Q tip tried to move loose skin over wound bed but unsuccessful, adaptic dressing and covered with gauze wrap with wound care instructions reviewed with patient with understanding voiced NEURO: No focal deficits. Alert and oriented x3. Course Course Emergency Course: Patient is aware of diagnosis, understands and agrees to treatment plan.? Anticipatory guidance given.? Patient agrees to follow-up as directed and is aware of reasons to seek care at the emergency department. Portions of this record may have been created with voice recognition software Level of Care: Express Care Visit Vital Signs Vital signs: Vital Signs Temperature 36.6 C 09/21/24 17:13 Pulse Rate 86 09/21/24 17:13 Respiratory Rate 16 09/21/24 17:13 Blood Pressure 140/70 09/21/24 17:13 Pulse Oximetry 99 09/21/24 17:13 Oxygen Delivery Room Air 09/21/24 17:13 Temperature 36.6 C 09/21/24 17:13 Pulse Rate 86 09/21/24 17:13 Respiratory Rate 16 09/21/24 17:13 Blood Pressure 140/70 09/21/24 17:13 Pulse Oximetry 99 09/21/24 17:13 Oxygen Delivery Room Air 09/21/24 17:13 Reviewed MDM - Extremity Injury (Upper) MDM Narrative Medical decision making narrative: Tetanus update given in clinic with no reaction noted Differential Diagnosis Differential diagnosis: Likely other (contusion to right forearm, skin tear right forearm, bruising right forearm) Medical Records Attestation: I reviewed the patient's medical records. Critical Care Time Critical Care Time Critical Care Time: No Discharge Plan Discharge Clinical Impression: ISTAP type 2 skin tear of right forearm Patient Disposition: Home, Self-Care Condition: Stable Instructions: Antibiotic Form, Skin Tear (ED) Additional Instructions: Change dressing to right arm in 24 hours apply large amount of mupiricin ointment to wound and cover with adaptic dressing and gauze wrap, change then in 48 hours gradually go to using Telfa watch for any increasing infection--redness, swelling, drainage Tylenol or ibuprofen for any fever pain follow up with PCP in 7-10 days for a wound check recheck if develop fever, chills, increasing symptom Go to the ER if your symptoms become worse of if ANY new symptoms develop If your symptoms persist, change or worsen significantly before you can contact your personal physician then please, without delay, go to the emergency department for further evaluation. Follow-up with PCP in 7-10 days or sooner if needed Follow up with PCP soon in regards to your blood pressure which is elevated above threshold for referral. Blood pressure above 120/80 may indicate pre-hypertension. Antibiotic as prescribed take with food Patient Language: Kiswahili Prescriptions: New cephalexin 500 mg capsule 500 mg PO Q12H Qty: 14 0RF mupirocin [Centany] 2 % ointment 1 applic topical BID Qty: 22 1RF No Action Spiriva with HandiHaler 18 mcg capsule, w/inhalation device 1 cap inhalation DAILY Rx Instructions: puncture 1 cap using device; one dose = 2 inhalations albuterol sulfate 90 mcg/actuation HFA aerosol inhaler 1 puff inhalation Q4H PRN (Reason: Shortness Of Breath) fluticasone propion-salmeterol [Wixela Inhub] 500-50 mcg/dose blister with device 1 inh inhalation Q12H zolmitriptan 5 mg tablet 5 mg PO ONCE Rx Instructions: may repeat once after at least 2 hrs; do not exceed 2 doses in 24 hrs Follow-up/Referrals: Brien,Saul Montez MD [Primary Care Provider] - Time of Disposition: 17:57 Quality [place] Coma Scale Eyes: Open Verbal: Oriented and Alert Motor: Follows Commands Tashia Coma Total Score: 15
[2024-09-21] MEDS: TETANUS,DIPHTHERIA,AC PERTUSSIS ADULT (0.5 ML) BOOSTRIX IM (18:05)
== END 2024-09-21 18:19 | disposition home or self-care (01) ==
PROVIDERS: Emergency Provider Registered Nurse; PCP Internal Medicine
DX: S51.811A Laceration without foreign body of right forearm, initial encounter (principal); W19.XXXA Unspecified fall, initial encounter; J44.9 Chronic obstructive pulmonary disease, unspecified; K21.9 Gastro-esophageal reflux disease without esophagitis
CPT/HCPCS: 90471; 90715; 99213; G0463

== ENCOUNTER 2024-12-10 07:16 | Emergency (ER) | payer MEDICARE, BC, SELFPAY ==
[2024-12-10] VITALS (25 sets, daily range): BP systolic 123–170; BP diastolic 58–98; PULSE 77–98; RESP 12–21; TEMP 36.5; O2SAT 92–100
--- NOTE | ~2024-12-10 | XR_ITS ---
EXAMINATION: XR chest 1V portable DATE: 12/10/2024 07:46 INDICATION: Chest pain TECHNIQUE: frontal view of the chest was obtained. COMPARISON: Chest CT dated 12/08/2015 and chest radiograph dated 12/07/2015 FINDINGS: Hyperexpansion lungs consistent with emphysema better appreciated on prior CT. Small left pneumothora x extending over the apex and along the left mid to upper lung represented 8 mm in maximal thickness. No airspace opacities, pulmonary edema, pleural effusion or right-sided pneumothorax. Nipple shadow projects over the lateral left lower lung zone. Heart size is normal. IMPRESSION: 1. Emphysema and small left pneumothorax. Dr. Vaz discussed these findings with Dr. Pathak at 8:25 AM. Reviewed, dictated and finalized at location A.
--- NOTE | ~2024-12-10 | CT_ITS ---
EXAMINATION: CT diagnostic chest wo con DATE: 12/10/2024 09:01 INDICATION: Possible pneumothorax TECHNIQUE: Computed tomography (CT) of the chest was performed without intravenous contrast. Addition al 3D reconstructions utilizing coronal maximum intensity projection (MIP) were performed. Automated exposure control and iterative reconstruction technique were employed. The dose-length product was 12 9.53 mGy-cm. COMPARISON: 12/08/2015 FINDINGS: Moderate emphysema. Mild linear discoid atelectasis at the left lower lobe. There are few scattered b ilateral <4 mm pulmonary nodules. Small branching bronchocele in the superior segment of the left low er lobe. No pneumonia, pulmonary edema, pleural effusion or pneumothorax. Heart size is normal. Small of atherosclerotic coronary artery calcific lesion. No pericardial effusion. Thoracic aorta is minesh l in caliber. No pathologically enlarged thoracic lymphadenopathy. Chronic goiter with suggestion of a few subcentimeter thyroid nodules. Again seen are a few unchanged subcentimeter low-attenuation hep atic cysts. There is a 1.8 cm hypodense lesion in the left hepatic lobe which is not definitively see n on the prior study. 2 cm cyst at the upper pole of the left kidney. Prominent upper thoracic levosc oliosis with mild compensatory dextro scoliosis in the mid to lower thoracic spine. Moderate spondylo sis.. IMPRESSION: 1. No pneumothorax or other acute cardiopulmonary disease. 2. Emphysema with a few less than 4 mm pulmonary nodules for which optional one year follow-up low-do se noncontrast chest CT could be considered. 3. Indeterminate 1.8 cm hypodense lesion in the left hepatic lobe which in the absence of known malig payal or liver disease is more likely benign than malignant but would recommend follow-up pre and pos tcontrast MRI or CT. Reviewed, dictated and finalized at location A. IMPRESSION: 1. No pneumothorax or other acute cardiopulmonary disease. 2. Emphysema with a few less than 4 mm pulmonary nodules for which optional one year follow-up low-dose noncontrast chest CT could be considered. 3. Indeterminate 1.8 cm hypodense lesion in the left hepatic lobe which in the absence of known malignancy or liver disease is more likely benign than maligna nt but would recommend follow-up pre and postcontrast MRI or CT.
--- OUTSIDE RECORDS SUMMARY | 2024-12-10 07:18 | XMS_ITS | Data Portability ---
Author Organization [place] [facility], Main Office Address [address] [place] [address] Care Team Providers Care Paid Search Analyst Name Role Phone KALA TESFAYE Primary Care Provider KALA TESFAYE Referring Provider Assessment No assessment recorded. Plan of Treatment Reminders Order Date Submit Date Provider Last Modified By Organization Details Last Modified Time Details Appointments None recorded. Lab vitamin D, 25-hydroxy, total, serum 2024 025 [email or web address] [facility], [address] [place], [address], 5 11:43:24 lipid panel, serum 2024 025 [email or web address] [facility], [address] [place], [address], 5 11:44:57 CMP, serum or plasma 2024 025 [email or web address] [facility], [address] [place], [address], 5 11:44:58 CBC w/ auto diff 2024 025 [facility], [address] [place], [address], 5 11:43:23 lipid panel, serum 2023 024 ALEXIS [facility], [address] [place], [address], 4 09:46:57 CMP, serum or plasma 2023 024 [facility] [address] [place], [address], 4 09:46:58 lipid panel, serum 2022 023 [email or web address] [facility] [place], [address] [place], [address], 3 17:42:08 CMP, serum or plasma 2022 023 [email or web address] [facility] [place], [address] [place], [address], 3 17:42:08 CBC w/ auto diff 2022 023 [email or web address] [facility] [place], [address] [place], [address], 3 17:42:08 Referral None recorded. Procedures None recorded. Surgeries None recorded. Imaging None recorded. Medication Orders rizatriptan 10 mg tablet 2024 025 [id number], [address] , [place], [place], [id number], 5 11:42:37 pantoprazol e 40 mg tablet,getachew yed release 2024 025 [facility][id number], [address] , [place], [place], [id number], 5 11:42:26 Patient TargetsNo targets recorded. Patient Instructions Encounter Date Encounter Id Patient Instructions Last Modified By Organization Details Last Modified Time 02/27/2023 [id number] dementia rating scale-2* [email or web address] Not available 02/27/2023 11:39:16 alcohol misuse* [email or web address] Not available 02/27/2023 11:39:16 depression screening* [email or web address] Not available 02/27/2023 11:39:16 multi-dimensiona l health assessment questionnaire* [email or web address] Not available 02/27/2023 11:39:16 Personalized Hea lt Plan and Screening Recommendations Advance Directives - Do you have one? Yes Advance Directives - Do we have your advance directive on file in your health record? No, please bring in a copy at your earliest convenience Primary Prevention/Interven tion (prevents or decreases the chance of common diseases from occurring) Smoking Risk: Non Smoker Alcohol Misuse Screening: Negative Weight: Appropriate Physical activity: Need more exercise/physical activity Nutrition: Good Average Fall Risk (screened today): Low Vaccines Pneumococcal: Ordered Recommended today Recommended today, but you have declined No further needed Influenza: Your next one in the fall of this year Chronic Disease Risks Stroke: Low Risk I have no recommendations Heart Attack: Low risk I have no recommendations Clogging of the Arteries: Low risk I have no recommendations Diabetes: Low Risk I have no recommendations Secondary Prevention/Interven tion (detects treatable diseases before they may cause symptoms, disability, or ) Breast Cancer Screening with mammogram: Cervical/Uterine/Ov patt Cancer Screening: No screening necessary Osteoporosis Screening: Date Screening Last Performed: Colon Cancer Screening: Colonoscopy In: Ordered Recomme nded Recommended today, but you have declined Date Screening Last Performed: ___2015 Eye Disease Screening: Dementia Risk: Low I have no recommendations Depression Screening: Negative [email or web address] Not available 02/27/2023 11:32:25 Medicare wellnes s [...] Dr. Pierce for history of colon polyps [email or web address] Not available 02/27/2023 11:38:54 08/04/2023 [id number] GERD- history of colon polyps -senile osteoporosis [...] with voice recognition software. Occasional wrong-word or wlrmq-h-ukjk substitutions may have occurred due to the inherent limitations of voice recognition software. Read the chart carefully and recognize, using context, where substitutions have occurred. Follow-up colonoscopy for colon polyp Upper endoscopy for family history of gastric cancer and intractable GERD [email or web address] Not available 08/04/2023 10:51:24 12/01/2023 [id number] Follow-up asthma , GERD as well as abdominal ventral hernia. All clinically stable at this time. Will check blood work consisting of CBC, CMP, lipid and follow-up in six months. Next Appt: 6 Months Approximate Date: 05/29/2024 Portions of the record may have been created with voice recognition software. Occasional wrong-word or kuzhe-q-ayku substitutions may have occurred due to the inherent limitations of voice recognition software. Read the chart carefully and recognize, using context, where substitutions have occurred. [email or web address] Not available 12/01/2023 11:36:01 05/31/2024 [id number] dementia rating scale-2* [email or web address] Not available 05/31/2024 11:46:06 alcohol misuse* [email or web address] Not available 05/31/2024 11:46:06 depression screening* [email or web address] Not available 05/31/2024 11:46:06 multi-dimensiona l health assessment questionnaire* [email or web address] Not available 05/31/2024 11:46:06 Personalized [facility] Plan and Screening Recommendations Advance Directives - Do you have one? Yes Advance Directives - Do we have your advance directive on file in your health record? No, please bring in a copy at your earliest convenience Primary Prevention/Interven tion (prevents or decreases the chance of common diseases from occurring) Smoking Risk: Non Smoker Alcohol Misuse Screening: Negative Weight: Appropriate Physical activity: Need more exercise/physical activity Nutrition: Good Average Fall Risk (screened today): Low Vaccines Pneumococcal: Ordered Recommended today Influenza: Your next one in the fall of this year Chronic Disease Risks Stroke: Low Risk Intermediate [...] Ordered Recommended today Cervical/Uterine/Ov patt Cancer Screening: No screening necessary Osteoporosis Screening: Your next DEXA in: Ordered Recomme nded today Date Screening Last Performed: Colon Cancer Screening: Colonoscopy In: Ordered Recomme nded Recommended today, but you have declined Date Screening Last Performed: __2016___ Eye Disease Screening: Dementia Risk: Low I have no recommendations Depression Screening: Negative [email or web address] Not available 05/31/2024 11:35:24 [facility] stable. Follow-up for [...] with voice recognition software. Occasional wrong-word or llxpj-t-hycs substitutions may have occurred due to the inherent limitations of voice recognition software. Read the chart carefully and recognize, using context, where substitutions have occurred. Not available 05/31/2024 11:45:38 11/29/2024 [id number] Follow-up asthma , GERD, ventral hernia migraine headaches all clinically stable. Will check blood work consisting of CBC, CMP, lipid, and vitamin-D level. Continue on current medications follow-up in six months Follow Up: 6 Months Approximate Date: 05/28/2025 Portions of record are template driven. When necessary additional context will be provided. Additionally some portions have been created with voice recognition software. Occasional wrong-word or qzrur-j-agpr substitutions may have occurred due to the inherent limitations of voice recognition software. Read the chart carefully and recognize, using context, where substitutions may have occurred. Created: Kala Tesfaye M.D. 11.29.2024 10:42 AM [email or web address] Not available 11/29/2024 11:42:17 Reason for Referral None Reported. Results Created Date Observation Date Name Description Value Unit Range Abnormal Flag Note LastModifiedBy Organization Detail LastModifiedTime 04/22/2004/23/2023 LIPID PANEL , STAND CHING cholesterol, total 194 mg/dL <200 normal Not Available [employer] [address] [address] [place], [address], 04/23/2023 03:49:13 04/22/2004/23/2023 LIPID PANEL , STAND CHING HDL cholesterol 83 mg/dL > or = 50 normal Not Available [facility] [address] [address] [place], [address], 04/23/2023 03:49:13 04/22/2004/23/2023 LIPID PANEL , STAND CHING triglyceride s 70 mg/dL <150 normal Not Available [facility] [address] [address] [place], [address], 04/23/2023 03:49:13 04/22/2004/23/2023 LIPID PANEL , STAND CHING LDL-choleste rol 95 mg/dL _(javier c) normal Refer ence range : <100 Essie able range <100 mg/dL for prima ry preve ntion ; <70 mg/dL for patie nts with CHD or diabe tic patie nts with > or = 2 CHD risk facto rs. LDL-C is now calcu lated using the Abbie more-Hop kins alejandrina rasmussen n, which is a valid ated novel lucilleo d mick dalton r accur acy than the Fried lambert equat ion in the estim ation of LDL-C . Abbie more SS et al. JANE. 2013; 310(1 9): 2061- 2068 (http ://ed ucati on.Qu Sandi nogueras. com/f aq/FA Q164) Not Available [facility] [address] [address], [place], [address], 04/23/2023 03:49:13 04/22/2004/23/2023 LIPID PANEL , STAND CHING chol/HDLC ratio 2.3 (calc ) <5.0 normal Not Available [address], [address], 04/23/2023 03:49:13 04/22/2004/23/2023 LIPID PANEL , STAND CHING non HDL cholesterol 111 mg/dL _(javier c) <130 normal For patie nts with diabe guerita plus 1 major ASCVD risk facto r, treat ing to a non-H DL-C goal of <100 mg/dL (LDL- C of <70 mg/dL ) is consi dered a thera peuti c optio n. Not Available [address], [address], 04/23/2023 03:49:13 04/22/2004/23/2023 COMPR EHENS EUGENAI METAB OLIC PANEL glucose 73 mg/dL 65-99 normal Fasti ng refer ence inter som Not Available [address] [address] [place], [address], 04/23/2023 03:49:14 04/22/2004/23/2023 COMPR EHENS EUGENIA METAB OLIC PANEL urea nitrogen (BUN) 18 mg/dL 7-25 normal Not Available [address], [address], 04/23/2023 03:49:14 04/22/2004/23/2023 COMPR EHENS EUGENIA METAB OLIC PANEL creatinine 1.00 mg/dL 0.60-1 .00 normal Not Available [facility] [address], [address], 04/23/2023 03:49:14 04/22/2004/23/2023 COMPR EHENS EUGENIA METAB OLIC PANEL eGFR 59 mL/mi n/1.7 3m2 > or = 60 low Not Available [facility] [address] [place], [address], 04/23/2023 03:49:14 04/22/20 23 04/23/2023 COMPR EHENS EUGENIA METAB OLIC PANEL BUN/creatini ne ratio SEE NOTE: (calc ) 6-22 Not Repor ngozi: BUN and Creat inine are withi n refer ence range . Not Available [address], [address], 04/23/2023 03:49:14 04/22/20 23 04/23/2023 COMPR EHENS EUGENIA METAB OLIC PANEL sodium 141 mmol/ L 135-14 6 normal Not Available [address], [address], 04/23/2023 03:49:14 04/22/20 23 04/23/2023 COMPR EHENS EUGENIA METAB OLIC PANEL potassium 4.3 mmol/ L 3.5-5. 3 normal Not Available [address], [address], 04/23/2023 03:49:14 04/22/20 23 04/23/2023 COMPR EHENS EUGENIA METAB OLIC PANEL chloride 105 mmol/ L 98-110 normal Not Available [address], [address], 04/23/2023 03:49:14 04/22/20 23 04/23/2023 COMPR EHENS EUGENIA METAB OLIC PANEL carbon dioxide 29 mmol/ L 20-32 normal Not Available [address], [address], 04/23/2023 03:49:14 04/22/20 23 04/23/2023 COMPR EHENS EUGENIA METAB OLIC PANEL calcium 9.5 mg/dL 8.6-10 .4 normal Not Available [address], [address], 04/23/2023 03:49:14 04/22/20 23 04/23/2023 COMPR EHENS EUGENIA METAB OLIC PANEL protein, total 7.0 g/dL 6.1-8. 1 normal Not Available [address], [address], 04/23/2023 03:49:14 04/22/20 23 04/23/2023 COMPR EHENS EUGENIA METAB OLIC PANEL albumin 4.3 g/dL 3.6-5. 1 normal Not Available [address], [address], 04/23/2023 03:49:14 04/22/20 23 04/23/2023 COMPR EHENS EUGENIA METAB OLIC PANEL globulin 2.7 g/dL_ (calc ) 1.9-3. 7 normal Not Available [address], [address], 04/23/2023 03:49:14 04/22/20 23 04/23/2023 COMPR EHENS EUGENIA METAB OLIC PANEL albumin/glob ulin ratio 1.6 (calc ) 1.0-2. 5 normal Not Available [address], [address], 04/23/2023 03:49:14 04/22/20 23 04/23/2023 COMPR EHENS EUGENIA METAB OLIC PANEL bilirubin, total 0.8 mg/dL 0.2-1. 2 normal Not Available [address], [address], 04/23/2023 03:49:14 04/22/20 23 04/23/2023 COMPR EHENS EUGENIA METAB OLIC PANEL alkaline phosphatase 92 U/L 37-153 normal Not Available [facility] [employer] [address], [address], 04/23/2023 03:49:14 04/22/20 23 04/23/2023 COMPR EHENS EUGENIA METAB OLIC PANEL AST 27 U/L 10-35 normal Not Available [address], [address], 04/23/2023 03:49:14 04/22/20 23 04/23/2023 COMPR EHENS EUGENIA METAB OLIC PANEL ALT 21 U/L 6-29 normal Not Available [address], [address], 04/23/2023 03:49:14 04/22/2004/23/2023 CBC (INCL UDES DIFF/ PLT) white blood cell count 6.4 thous and/u L 3.8-10 .8 normal Not Available [address], [address], 04/23/2023 03:49:15 04/22/2004/23/2023 CBC (INCL UDES DIFF/ PLT) red blood cell count 4.69 idania on/uL 3.80-5 .10 normal Not Available [address], [address], 04/23/2023 03:49:15 04/22/2004/23/2023 CBC (INCL UDES DIFF/ PLT) hemoglobin 15.0 g/dL 11.7-1 5.5 normal Not Available [address], [address], 04/23/2023 03:49:15 04/22/2004/23/2023 CBC (INCL UDES DIFF/ PLT) hematocrit 43.4 % 35.0-4 5.0 normal Not Available [address], [address], 04/23/2023 03:49:15 04/22/2004/23/2023 CBC (INCL UDES DIFF/ PLT) MCV 92.5 fL 80.0-1 00.0 normal Not Available [address], [address], 04/23/2023 03:49:15 04/22/2015 0404/23/2023 CBC (INCL UDES DIFF/ PLT) MCH 32.0 pg 27.0-3 3.0 normal Not Available [address], [address], 04/23/2023 03:49:15 04/22/2004/23/2023 CBC (INCL UDES DIFF/ PLT) MCHC 34.6 g/dL 32.0-3 6.0 normal Not Available [address], [address], 04/23/2023 03:49:15 04/22/2004/23/2023 CBC (INCL UDES DIFF/ PLT) RDW 12.6 % 11.0-1 5.0 normal Not Available [address], [address], 04/23/2023 03:49:15 04/22/2004/23/2023 CBC (INCL UDES DIFF/ PLT) platelet count 185 thous and/u L 140-40 0 normal Not Available [address], [address], 04/23/2023 03:49:15 04/22/2004/23/2023 CBC (INCL UDES DIFF/ PLT) MPV 9.9 fL 7.5-12 .5 normal Not Available [address], [address], 04/23/2023 03:49:15 04/22/2004/23/2023 CBC (INCL UDES DIFF/ PLT) absolute neutrophils 4198 cells /uL 1500-7 800 normal Not Available [address], [address], 04/23/2023 03:49:15 04/22/20 23 04/23/2023 CBC (INCL UDES DIFF/ PLT) absolute lymphocytes 1357 cells /uL 850-39 00 normal Not Available [facility] [address], [address], 04/23/2023 03:49:15 04/22/20 23 04/23/2023 CBC (INCL UDES DIFF/ PLT) absolute monocytes 538 cells /uL 200-95 0 normal Not Available [facility] [address], [address], 04/23/2023 03:49:15 04/22/20 23 04/23/2023 CBC (INCL UDES DIFF/ PLT) absolute eosinophils 256 cells /uL 15-500 normal Not Available [facility] [address], [address], 04/23/2023 03:49:15 04/22/20 23 04/23/2023 CBC (INCL UDES DIFF/ PLT) absolute basophils 51 cells /uL 0-200 normal Not Available [facility] [address], [address], 04/23/2023 03:49:15 04/22/20 23 04/23/2023 CBC (INCL UDES DIFF/ PLT) neutrophils 65.6 % normal Not Available [facility] [address], [address], 04/23/2023 03:49:15 04/22/20 23 04/23/2023 CBC (INCL UDES DIFF/ PLT) lymphocytes 21.2 % normal Not Available [address], [address], 04/23/2023 03:49:15 04/22/20 23 04/23/2023 CBC (INCL UDES DIFF/ PLT) monocytes 8.4 % normal Not Available [facility] [address], [address], 04/23/2023 03:49:15 04/22/20 23 04/23/2023 CBC (INCL UDES DIFF/ PLT) eosinophils 4.0 % normal Not Available [facility] [address], [address], 04/23/2023 03:49:15 04/22/2004/23/2023 CBC (INCL UDES DIFF/ PLT) basophils 0.8 % normal Not Available [facility] [address], [address], 04/23/2023 03:49:15 04/29/20 24 04/30/2024 LIPID PANEL , STAND CHING cholesterol, total 161 mg/dL <200 normal Not Available [facility] [address], [address], 04/30/2024 09:46:57 04/29/20 24 04/30/2024 LIPID PANEL , STAND CHING HDL cholesterol 79 mg/dL > or = 50 normal Not Available [address], [address], 04/30/2024 09:46:57 04/29/20 24 04/30/2024 LIPID PANEL , STAND CHING triglyceride s 58 mg/dL <150 normal Not Available [facility] [address], [address], 04/30/2024 09:46:57 04/29/20 24 04/30/2024 LIPID PANEL [...] which is a valid ated novel memo garcia than the Fried lambert equat ion in the estim ation of LDL-C . Abbie more SS et al. JANE. 2013; 310(1 9): 2061- 2068 (http ://ed ucati on.Qu estDi [employer]s. com/f aq/FA Q164) Not Available [address] [address] [place], [address], 04/30/2024 09:46:57 04/29/20 24 04/30/2024 LIPID PANEL , STAND CHING chol/HDLC ratio 2.0 (calc ) <5.0 normal Not Available [address], [address], 04/30/2024 09:46:57 04/29/20 24 04/30/2024 LIPID PANEL , STAND CHING non HDL cholesterol 82 mg/dL _(javier c) <130 normal For patie nts with diabe guerita plus 1 major ASCVD risk facto r, treat ing to a non-H DL-C goal of <100 mg/dL (LDL- C of <70 mg/dL ) is consi dered a thera peuti c optio n. Not Available [address], [address], 04/30/2024 09:46:57 04/29/20 24 04/30/2024 COMPR EHENS EUGENIA METAB OLIC PANEL glucose 72 mg/dL 65-99 normal Fasti ng refer ence inter som Not Available [address] [address] [place], [address], 04/30/2024 09:46:58 04/29/2004/30/2024 COMPR EHENS EUGENIA METAB OLIC PANEL urea nitrogen (BUN) 15 mg/dL 7-25 normal Not Available [address], [address], 04/30/2024 09:46:58 04/29/20 24 04/30/2024 COMPR EHENS EUGENIA METAB OLIC PANEL creatinine 0.98 mg/dL 0.60-1 .00 normal Not Available [address] [address] [place], [address], 04/30/2024 09:46:58 04/29/20 24 04/30/2024 COMPR EHENS EUGENIA METAB OLIC PANEL eGFR 61 mL/mi n/1.7 3m2 > or = 60 normal Not Available [address], [address], 04/30/2024 09:46:58 04/29/20 24 04/30/2024 COMPR EHENS EUGENIA METAB OLIC PANEL BUN/creatini ne ratio SEE NOTE: (calc ) 6-22 Not Repor ngozi: BUN and Creat inine are withi n refer ence range . Not Available [address], [address], 04/30/2024 09:46:58 04/29/20 24 04/30/2024 COMPR EHENS EUGENIA METAB OLIC PANEL sodium 140 mmol/ L 135-14 6 normal Not Available [address], [address], 04/30/2024 09:46:58 04/29/20 24 04/30/2024 COMPR EHENS EUGENIA METAB OLIC PANEL potassium 4.4 mmol/ L 3.5-5. 3 normal Not Available [address], [address], 04/30/2024 09:46:58 04/29/20 24 04/30/2024 COMPR EHENS EUGENIA METAB OLIC PANEL chloride 104 mmol/ L 98-110 normal Not Available [address], [address], 04/30/2024 09:46:58 04/29/20 24 04/30/2024 COMPR EHENS EUGENIA METAB OLIC PANEL carbon dioxide 30 mmol/ L 20-32 normal Not Available [address], [address], 04/30/2024 09:46:58 04/29/20 24 04/30/2024 COMPR EHENS EUGENIA METAB OLIC PANEL calcium 9.7 mg/dL 8.6-10 .4 normal Not Available [address], [address], 04/30/2024 09:46:58 04/29/20 24 04/30/2024 COMPR EHENS EUGENIA METAB OLIC PANEL protein, total 6.7 g/dL 6.1-8. 1 normal Not Available [address], [address], 04/30/2024 09:46:58 04/29/20 24 04/30/2024 COMPR EHENS EUGENIA METAB OLIC PANEL albumin 4.1 g/dL 3.6-5. 1 normal Not Available [address], [address], 04/30/2024 09:46:58 04/29/20 24 04/30/2024 COMPR EHENS EUGENIA METAB OLIC PANEL globulin 2.6 g/dL_ (calc ) 1.9-3. 7 normal Not Available [address], [address], 04/30/2024 09:46:58 04/29/2004/30/2024 COMPR EHENS EUGENIA METAB OLIC PANEL albumin/glob ulin ratio 1.6 (calc ) 1.0-2. 5 normal Not Available [address], [address], 04/30/2024 09:46:58 04/29/20 24 04/30/2024 COMPR EHENS EUGENIA METAB OLIC PANEL bilirubin, total 0.8 mg/dL 0.2-1. 2 normal Not Available [address], [address], 04/30/2024 09:46:58 04/29/20 24 04/30/2024 COMPR EHENS EUGENIA METAB OLIC PANEL alkaline phosphatase 133 U/L 37-153 normal Not Available [address], [address], 04/30/2024 09:46:58 04/29/20 24 04/30/2024 COMPR EHENS EUGENIA METAB OLIC PANEL AST 35 U/L 10-35 normal Not Available [facility] [address] , [place], [address], 04/30/2024 09:46:58 04/29/20 24 04/30/2024 COMPR EHENS EUGENIA METAB OLIC PANEL ALT 30 U/L 6-29 high Not Available [facility] [address] [address] , [place], [address], 04/30/2024 09:46:58 09/07/19 24 09/07/2023 CT, abdom en + pelvi s, w/o contr ast No observ ation record ed. [address], [place], [address], 09/07/2023 15:58:17 02/03/20 24 02/03/2024 surjit r monit or No observ ation record ed. [address] [facility] [address], [place], [address], 02/03/2024 09:59:11 02/03/20 24 01/04/2024 mobil e cardi ac telem etry (PROC ) No observ ation record ed. [place] [address] Not Available 2023 17:26:44 04/14/20 24 04/08/2024 PFT, compl ete No observ ation record ed. [address], [place], [address], 04/14/2024 15:13:41 06/28/20 24 06/28/2024 DEXA, axial skele ton [facility] [address], [place] [address] Patien t Name: MIRELES, BROOKLYNNJOSHUA Access ion #: [id number] Sex: F : 1949 9 Dictat ed By: Linda Gallegos Attend ing Physic feli: DEEPALI TESFAYE Orderi ng Physic feli: DEEPALI TESFAYE Exam Date: 2023 [...] receiv ed treatm ent. T-scor e: compar francia by charisma chowdary deviat ion (SD) to a young adult popula tion, matche d for sex and ethnic ity (used for postme derrickaus al women and men >50 years) and classi fied by WHO criter ia. Page 1 [facility] [address] [facility] [address] [place] [id number] [phone] Patien t Name: SHEMAR MIRELES RY Access ion #: [id number] Sex: F : 1949 9 Dictat ed By: Linda Gallegos Attend ing Physic feli: FITO CONTRERAS ng Physic feli: DEEPALI TESFAYE Exam Date: 2023 [...] at 2023 16:48: 30 PM Page 2 [facility] ([facility]) [address] [place], [address], 06/29/2024 09:55:12 06/28/20 24 06/28/2024 scree matt breas t kristen, bilat [facility] [address] [place] [address] Patien t Name: SHEMAR MIRELES Access ion #: [id number] Sex: F : 1949 9 Dictat ed By: Linda Gallegos Attend ing Physic feli: DEEPALI TESFAYE CE Orderi Physic feli: DEEPALI TESFAYE CE Exam Date: 2023 14:46 PM Exam Name: MG SCRN BREAST KRISTEN BILAT Admitt ing Diagno sis(es ): PROCED URE: SCREEN ING MAMMOG NAMAN WITH TOMOSY NTHESI S REASON FOR EXAM: screen ing mammog naman COMPAR FRANCIA: MG DIGITA L GISELA BILAT SCREEN 2D [...] RECOMM ENDATI ON: Recomm end annual mammog naman. Given extrem aron dense breast tissue , supple mental bilate ral breast screen ing ultras ound is also recomm ended. ASSESS MENT: Page 1 [facility] [address] [place] [address] Patien t Name: SHEMAR MIRELES Access ion #: [id number] Sex: F : 1949 9 Dictat ed By: Linda Gallegos Attend ing Physic feli: [facility] Physic feli: DEEPALI TESFAYE Exam Date: 2023 14:46 PM Exam Name: MG SCRN BREAST KRISTEN BILAT Admitt ing Diagno sis(es ): BIRADS : 2 - Benign Electr onical ly Signed by: Linda Gallegos at 2023 16:50: 19 PM Page 2 [email or web address] [facility] ([facility]) [address] [place], [address], 06/29/2024 09:55:37 Result Notes None recorded. Problems Name Problem SNOMED Code Status Onset Date Resolution Date Notes Provider Name and Address Organization Details Recorded Time Renewal of prescription Active 2021 Not Available [facility] 3 06:42:29 Serum creatinine above reference range 761203195 Active 2022 Not Available [facility] 3 06:42:29 Senile osteoporosis 00488529 Active 2021 Not Available [facility] 3 06:42:30 Asthma 710639167 Active Not Available [facility] 3 06:42:30 Anxiety disorder 960220454 Active Not Available [facility] 3 06:42:30 Migraine 24260857 Active Not Available [facility] 3 06:42:30 Osteoarthriti s 299318616 Active Not Available [facility] 3 06:42:30 Vertigo 925578948 Active 2021 Not Available [facility] [facility] 06:42:30 Allergic rhinitis 26113840 Active Not Available [facility] 3 06:42:30 Eye strain 24699865 Active 2017 Not Available [facility] 3 06:42:30 Polyp of colon 15253450 Active 2022 Kala Tesfaye MD [address], [address], [place], [address] , [facility] 3 11:35:38 Vitamin D deficiency 03164278 Active 2022 Kala Tesfaye MD [address], [address], [place], [address] , [facility] 3 11:38:40 Nausea 697977630 Active 2022 Lilly villatoro, [place] [facility] 3 16:30:34 Gastroesophag eal reflux disease 673033658 Active 2022 Kala Tesfaye MD [address], [address], [place], [address] , [facility] 3 10:46:36 Hernia of anterior abdominal wall 669594928 Active 2022 Sindy villatoro, [place] [facility] 3 15:05:39 Hiatal hernia 20366355 Active [address] [facility] 3 15:14:16 Anxiety 07928200 Active 2023 Ratna Luciano SCREENING TECHNICIAN null, [place] [facility] 4 12:44:43 Bradycardia 27008583 Active 2023 Sindy Beck null, [place] [facility] 4 16:46:01 Near syncope 709835073 Active 2023 Sindy Beck null[place] [facility] 4 16:46:10 Atrial fibrillation 79631387 Active 2023 Ratna Luciano CMA null, [place] [facility] 4 17:04:49 Osteopenia 683057301 Active 2023 Ratna Luciano CMA null, [place] [facility] 4 11:07:37 Gastroesophag eal reflux disease without esophagitis 159800935 Active 2023 Ratna Luciano CMA null, [place] [facility] 4 14:20:09 Problem Notes None recorded. Procedures Surgical History Date Name Laterality Status Provider Name and Address Organization Details Recorded Time 4 Medicare Wellness CPT Code, subsequent completed Margarette Enrique RN [facility] 05/31/2024 11:28:01 3 Medicare Wellness CPT Code, subsequent completed Margarette Enrique RN [facility] 02/27/2023 11:26:14 Imaging Results Imaging Date Name Status LastModified by [facility] Details LastModified Time 09/07/2023 CT, abdomen + pelvis, w/o contrast completed [id number] [place] [address] Imaging [address], [place], [address], 09/07/2023 15:58:17 02/03/2024 holter monitor completed [id number] [place] [address] [facility] [address], [place], [address], 02/03/2024 09:59:11 01/04/2024 mobile cardiac telemetry (PROC) [place] [address] Information not available 02/03/2024 17:26:44 04/08/2024 PFT, complete completed [place] [address] [facility] [address], [place], [address], 04/14/2024 15:13:41 06/28/2024 DEXA, axial skeleton completed [address] (Imaging) [address] [place], [address], 06/29/2024 09:55:12 06/28/2024 screening breast kristen, bilat completed [address] (Imaging) [address] [place], [address], 06/29/2024 09:55:37 Procedure Notes None recorded. Medical Equipment None Reported. Medications Name Sig Start Date Stop Date Status Note LastModified by Organization Details LastModified Time Prescripti on - Prior Authorizat ion Request active [facility] Not Available Not Available Not Available fluticason e 250 mcg-salmet dottie 50 mcg/dose blistr powdr for inhalation INHALE 1 PUFF BY MOUTH TWICE DAILY active Not Available Not Available No t Available albuterol sulfate 2.5 mg/3 mL (0.083 %) solution for nebulizati on Inhale 3 mL 4 times a day by nebuliza tion route. 03/04 completed Not Available Not Available Not Available azithromyc in 250 mg tablet TAKE 2 TABLETS BY MOUTH FOR 1 DAY THEN TAKE 1 TABLET BY MOUTH DAILY FOR 4 DAYS 11/29 completed Not Available Not Available Not Available [...] 70 mg tablet TAKE 1 TABLET WEEKLY 11/29 completed Not Available Not Available Not Available rizatripta n 10 mg tablet Take 1 tablet every day by oral route as needed for 90 days. 2024 active Not Available Not Available Not Avai lable pimecrolim us 1 % topical cream APPLY A THIN LAYER TO THE AFFECTED AREA(S) BY TOPICAL ROUTE 2 TIMES PER DAY ; RUB IN GENTLY AND COMPLETE LY or as directed 11/30 completed Not Available Not Available Not Available zolmitript an 5 mg tablet TAKE 1 TABLET AT ONSET OF HEADACHE , MAY REPEAT 1 TABLET IN 1 HOUR. MAXIMUM 2TABLETS DAILY active Not Available Not Available No t Available alprazolam 0.5 mg tablet TAKE 1 TABLET BY MOUTH THREE TIMES DAILY NEEDED 11/29 completed Not Available Not Available Not Available baclofen 10 mg tablet TAKE 1 TABLET BY MOUTH FOUR TIMES DAILY active Not Available Not Available No t Available cephalexin 500 mg capsule TAKE 1 CAPSULE BY MOUTH EVERY 12 HOURS 11/29 completed Not Available Not Available Not Available pantoprazo le 40 mg tablet,del ayed release Take 1 tablet every day by oral route. 2024 active Not Available Not Available Not Avai lable lisinopril 10 mg tablet TAKE 1 TABLET BY MOUTH EVERY DAY 03/04 completed Not Available Not Available Not Available mupirocin 2 % topical ointment APPLY TOPICALL Y TO THE AFFECTED AREA TWICE DAILY active Not Available Not Available No t Available lotepredno l etabonate 0.5 % eye drops,susp ension INSTILL 1 DROP INTO BOTH EYES THREE TIMES DAILY. SHAKE WELL active Not Available Not Available No t Available Ativan 0.5 mg tablet 1 tablet three times a day as needed or directed 02/27 completed Not Available Not Available Not Available albuterol sulfate HFA 90 mcg/actuat ion aerosol inhaler USE 2 INHALATI ONS ORALLY EVERY 6 HOURS NEEDED active Not Available Not Available No t Available Vitamin D2 1,250 mcg (50,000 unit) capsule [...] device INHALE THE CONTENTS OF ONE CAPSULE DAILY active Not Available Not Available No [...] tablet twice a day by oral route. 11/29 completed Not Available Not Available Not Available Breo Ellipta 100 mcg-25 mcg/dose powder for [...] Not Available Not Available No t Available Nurtec ODT 75 mg disintegra ting tablet take one tablet every other day 08/04 completed Not Available Not Available Not Available Breztri Aerosphere 160 mcg-9mcg-4 .8mcg/actu ation HFA aerosol inhaler Inhale 2 puffs twice a day by inhalati on route. 02/21 completed Not Available Not Available Not Available Vitals Date Recorded Body height Body mass index (BMI) Body weight Heart rate Body temperature Oxygen saturation Oxygen saturation in Arterial blood by Pulse oximetry Systolic blood pressure Diastolic blood pressure Provider Name and Address Organization Details Last Updated DateTime 3 160.02 cm 21.3 kg/m2 08492.0 8 g 78 /min 97 [degF] 97 % 97 % 120 mm[Hg] 84 mm[Hg] Lilly SANDOVAL - [facility] 3 11:21:14 Date Recorded Pain severity - 0-10 verbal numeric rating [Score] - Reported Provider Name and Address Organization Details Last Updated DateTime 02/27/2023 0 Margarette Enrique RN [facility] [employer] [facility] 02/27/2023 11:26:28 Date Recorded Body height Body mass index (BMI) Body weight Heart rate Body temperature Oxygen saturation Oxygen saturation in Arterial blood by Pulse oximetry Systolic blood pressure Diastolic blood pressure Provider Name and Address Organization Details Last Updated DateTime 3 160.02 cm 21.6 kg/m2 73987.2 7 g 80 /min 97 [degF] 95 % 95 % 118 mm[Hg] 78 mm[Hg] [facility] [employer] [facility] 3 10:35:22 Date Recorded Body height Body mass index (BMI) Body weight Oxygen saturation Oxygen saturation in Arterial blood by Pulse oximetry Systolic blood pressure Diastolic blood pressure Provider Name and Address Organization Details Last Updated DateTime 4 158.75 cm 21.2 kg/m2 69758.9 g 97 % 97 % 124 mm[Hg] 72 mm[Hg] Ratna Luciano CMA [facility] [employer] [facility] 4 11:16:56 Date Recorded Heart rate Provider Name an d Address Organization Details Last Updated DateTime 12/01/2023 55 /min Kala Tesfaye MD [address] [place] [address], [address], [facility] [employer] [facility] 12/01/2023 11:24:31 Date Recorded Body height Body mass index (BMI) Body weight Heart rate Body temperature Oxygen saturation Oxygen saturation in Arterial blood by Pulse oximetry Systolic blood pressure Diastolic blood pressure Provider Name and Address Organization Details Last Updated DateTime 4 160.02 cm 20.7 kg/m2 08066.3 1 g 80 /min 97 [degF] 97 % 97 % 124 mm[Hg] 62 mm[Hg] Lilly Zuluaga [facility] [employer] [facility] 4 11:13:39 Date Recorded Pain severity - 0-10 verbal numeric rating [Score] - Reported Provider Name and Address Organization Details Last Updated DateTime 05/31/2024 0 Margarette Enrique RN [facility] [employer] [facility] 05/31/2024 11:28:12 Date Recorded Body height Body mass index (BMI) Body weight Heart rate Body temperature Oxygen saturation Oxygen saturation in Arterial blood by Pulse oximetry Systolic blood pressure Diastolic blood pressure Provider Name and Address Organization Details Last Updated DateTime 5 160.02 cm 20.7 kg/m2 80143.3 1 g 84 /min 97 [degF] 94 % 94 % 118 mm[Hg] 60 mm[Hg] Lilly Zuluaga [place] - [facility] 5 11:22:22 Social History Question Answer Notes LastModified by Organizat ion Details LastModified Time Tobacco Smoking Status Former Smoker Not Available [facility] 10/22/2022 06:39:47 Do You Have An Advance Directive? Yes Information not available 05/31/2024 What Is Your Level Of Alcohol Consumption? None [email or web address] Information not available 05/31/2024 Are You Blind Or Do You Have Difficulty Seeing? No MIGRATION.80742 58172 Information not available 10/22/2022 In The 14 Days Before Symptom Onset, Have You Had Close Contact With A Laboratory-confi rmed COVID-19 While That Case Was Ill? No MIGRATION.56838 81931 Information not available 10/22/2022 In The 14 Days Before Symptom Onset, Have You Had Close Contact With A Person Who Is Under Investigation For COVID-19 While That Person Was Ill? No MIGRATION.20542 92037 Information not available 10/22/2022 Are You Deaf Or Do You Have Serious Difficulty Hearing? No MIGRATION.38890 32408 Information not available 10/22/2022 What Type Of Diet Are You Following? REGULAR MIGRATION.15232 15726 Information not available 10/22/2022 Have There Been Any Changes To Your Family Or Social Situation? No MIGRATION.32313 98160 Information not available 10/22/2022 What Is The Fluoride Status Of Your Home? Unknown MIGRATION.91670 94050 Information not available 10/22/2022 When Did You Quit Smoking? 16+yearssincelastc igarette MIGRATION.47573 60116 Information not available 10/22/2022 Are There Any Guns Present In Your Home? No MIGRATION.69313 62047 Information not available 10/22/2022 Do You Use Insect Repellent Routinely? No MIGRATION.46096 60742 Information not available 10/22/2022 Where Do You Live? [place] MIGRATION.62214 13974 Information not available 10/22/2022 Guns Present In The Home? No [email or web address] Information not available 05/31/2024 Are You Able To Care For Yourself? Yes [email or web address] Information not available 05/31/2024 Are You Blind Or Do Yo Have Difficulty Seeing? No [email or web address] Information not available 05/31/2024 Are You Deaf Or Do You Have Serious Difficulty Hearing? No [email or web address] Information not available 05/31/2024 Live Alone Of With Others? Alone [email or web address] Information not available 05/31/2024 Do You Have A Medical Power Of Furnace Repairer Helper? Yes [email or web address] Information not available 05/31/2024 What Was The Date Of Your Most Recent Tobacco Screening? 05/31/2024 Information not available 05/31/2024 Do You Have Any Pets? No MIGRATION.25494 92600 Information not available 10/22/2022 Do You Use Your Seat Belt Or Car Seat Routinely? Yes MIGRATION.44677 74148 Information not available 10/22/2022 Do You Have Smoke And Carbon Monoxide Detectors In Your Home? Yes MIGRATION.78418 35520 Information not available 10/22/2022 Are You Passively Exposed To Smoke? No MIGRATION.92336 17747 Information not available 10/22/2022 Are There Any Smokers In Your House? No MIGRATION.92522 57826 Information not available 10/22/2022 Do You Use Sunscreen Routinely? No MIGRATION.47874 59386 Information not available 10/22/2022 How Many Years Have You Smoked Tobacco? 30 MIGRATION.18969 35945 Information not available 10/22/2022 Have You Recently Traveled Abroad? No MIGRATION.72959 64491 Information not available 10/22/2022 Do You Have Any Dietary Restrictions? No MIGRATION.39794 91116 Information not available 10/22/2022 Sex: Unknown Functional Status Question Answer Note LastModified by Organizat ion Details LastModified Time Do you have difficulty walking or climbing stairs? No MIGRATION.0890543 026 Information not available 10/22/2022 Do you have transportation difficulties? No MIGRATION.5794901 026 Information not available 10/22/2022 Are you able to walk? YESWOREST MIGRATION.8591917 026 Information not available 10/22/2022 Do you have difficulty doing errands alone? No MIGRATION.6465503 026 Information not available 10/22/2022 Are you able to care for yourself? Yes MIGRATION.6097458 026 Information not available 10/22/2022 Do you have difficulty dressing or bathing? No MIGRATION.7061148 026 Information not available 10/22/2022 What is your exercise level? Moderate MIGRATION.5525668 026 Information not available 10/22/2022 Mental Status Question Answer Note LastModified by Organizat ion Details LastModified Time Do you have difficulty concentrating, remembering or making decisions? No MIGRATION.001995802 6 Information not available 10/22/2022 Family History Relationship Description Onset Age of this Age Resolved Age Notes LastModified by Organization Details LastModified Time Father Family history of malignant neoplasm MIGRATION.[id number] Not available 10/22/2022 06:40:09 Mother Family history of malignant neoplasm MIGRATION.761 [id number] Not available 10/22/2022 06:40:09 Notes:Mother 64 yea [...] 1 N POLIO N LUNG DISEASE/DISORDER Y RADIATION / CHEMOTHERAPY N COPD N Other # 2 N BLOOD DISEASES N EAR OR HEARING PROBLEMS N MUMPS N BOWEL PROBLEMS N DEPRESSION (INCLUDING POST ) N STROKE/TIA N ULCERS N BENIGN PROSTATIC [...] INSOMNIA N HIGH CHOLESTEROL / HYPERLIPIDEMIA N EYE PROBLEMS N HYPERTHYROIDISM N EDEMA N CHRONIC PAIN SYNDROME N HYPOTHYROIDISM N CONSTIPATION N CAROTID BLOCKAGE N BACK / NECK PROBLEMS N HAVE YOU BEEN HOSPITALIZED OR SEEN IN [facility] IN THE PAST YEAR ? N ATHEROSCLEROSIS N BREAST PROBLEMS N DIALYSIS N ECZEMA N OSTEOPOROSIS N ARTHRITIS Y NO SIGNIFICANT PAST MEDICAL HISTORY N APPENDICITIS N DIABETES, TYPE N BAD TEETH N ENT N HEARTBURN / REFLUX N AUTISM SPECTRUM DISORDER (ASD) N HEPATITIS / LIVER DISEASE N GOUT N SLEEP DISORDER N ALZHEIMER'S DISEASE N Brain Problems N DEMENTIA N HERPES N SEIZURES/EPILEPSY N HEADACHES/MIGRAINES Y VASCULAR DISEASE N PACEMAKER N Blood Disorder N DIZZINESS N HEART DISEASE/HEART PROBLEMS N KIDNEY DISEASE N MULTIPLE SCLEROSIS N CANCER: SPECIFY N CARDIAC ARRHYTHMIA N ATRIAL FIBRILLATION N Gall Stones N PULMONARY EMBOLISM N AUTOIMMUNE DISEASE N Gynecological HistoryNo gynecological history recorded. Obstetrics History GPAL:G 0 P 0 0 0 0 Immunizations Vaccine Type Date Status Note Provider Nam e and Address Organization Details Recorded Time Pneumococcal conjugate PCV20, polysaccharide BDK580 conjugate, adjuvant, PF 5 completed [facility]lecka [facility] [facility] 11/30/2024 12:40:33 SARS-COV-2 (COVID-19) vaccine, UNSPECIFIED 3 completed [facility]leck[facility] [facility] 08/04/2023 10:35:58 influenza, unspecified formulation 3 completed [facility] 08/04/2023 10:36:14 SARS-COV-2 (COVID-19) vaccine, UNSPECIFIED 4 completed [facility] [facility] 05/31/2024 11:14:14 influenza, unspecified formulation 4 completed [facility] [facility] 05/31/2024 11:14:30 Respiratory syncytial virus (RSV) MAB, unspecified 4 completed [facility] 05/31/2024 11:15:16 SARS-COV-2 (COVID-19) vaccine, UNSPECIFIED 1 completed Not Available [facility] 10/22/2022 06:46:47 SARS-COV-2 (COVID-19) vaccine, UNSPECIFIED 1 completed Not Available [facility] 10/22/2022 06:46:47 COVID-19, mRNA, LNP-S, PF, 30 mcg/0.3 mL dose 1 completed Not Available [facility] 10/22/2022 06:46:47 Influenza, high-dose, quadrivalent, PF 1 completed Not Available [facility] 10/22/2022 06:46:48 Influenza, high-dose, quadrivalent, PF 0 completed Not Available [facility] 10/22/2022 06:46:48 Influenza, high-dose, trivalent, PF 8 completed Not Available [facility] 10/22/2022 06:46:48 Influenza, high-dose, trivalent, PF 7 completed Not Available [facility] 10/22/2022 06:46:48 Influenza, high-dose, trivalent, PF 6 completed Not Available [facility] 10/22/2022 06:46:48 pneumococcal polysaccharide PPV23 6 completed Not Available [facility] 10/22/2022 06:46:48 Pneumococcal conjugate PCV 13 4 completed Not Available [facility] 10/22/2022 06:46:49 Past Encounters Encounter ID Performer Location Encounter Start Date Encounter Closed Date Diagnosis/Indication Diagnosis SNOMED-CT Code Diagnosis ICD10 Code Diagnosis Note [id number] [facility] [place] [address] [place] [address] [facility] [place] [address] 03/01/2021 00:00:00 03/01/2021 14:37:10 [id number] [facility] [place] [address] [place] [address] 04/10/2021 00:00:00 05/09/2021 10:30:51 [id number] [facility] [place] [address] [place] [address] 04/17/2021 00:00:00 04/17/2021 10:24:30 [id number] [facility] [place] [address] [place] [address] 04/17/2021 00:00:00 04/17/2021 16:50:30 [id number] [facility] [place] [address] [place] [address] 04/30/2021 00:00:00 04/30/2021 12:55:26 [id number] [facility] [place] [address] [place] [address] 05/21/2021 00:00:00 05/21/2021 12:44:02 [id number] [facility] [place] [address] [place] [address] 06/04/2021 00:00:00 06/04/2021 09:42:36 [id number] [facility] [place] [address] [place] [address] 08/06/2021 00:00:00 08/06/2021 09:43:21 [id number] [facility] [place] [address] [place] [address] 10/01/2021 00:00:00 10/01/2021 15:10:40 [id number] [facility] [place] [address] [place] [address] 02/21/2022 00:00:00 02/21/2022 11:17:17 [id number] [facility] [place] [address] [place] [address] 08/29/2022 00:00:00 08/29/2022 10:57:58 [id number] Kala Tesfaye MD [facility] [place] [address] [facility] [place] [address] 02/27/2023 11:12:37 02/27/2023 11:44:36 Adult health examination 674724626 Z00.00 Screening for disorder 604838064 Z13.9 Asthma 874725531 J45.90 9 Anxiety disorder 7015980 06 F41.9 Migraine 12898928 G43.90 9 Polyp of colon 02915454 K63.5 Screening for cardiovascular system disease 553206268 Z13.6 Vitamin D deficiency 347 24999 E55.9 [id number] Kala Tesfaye MD [facility] Internal Med [facility] [address] [facility] [place] [address] 08/04/2023 10:29:23 08/04/2023 10:59:24 Polyp of colon 09810874 K63.5 Senile osteoporosis 1804 0001 M81.0 Asthma 378655814 J45.90 9 Gastroesop hageal reflux disease 811634008 K21.9 Migraine 54794665 G43.90 9 [id number] Kala Tesfaye MD [facility] [address] [facility] [address], [place] [address] 12/01/2023 11:10:11 12/01/2023 11:41:57 Gastroesophageal reflux disease 290653789 K21.9 Asthma 081096361 J45.90 9 Hernia of anterior abdominal wall 675728256 K43.9 Screening for cardiovascular system disease 373743595 Z13.6 Bradycardia 38274975 R00 .1 Hyperlipidemia 09912440 E78.5 [id number] Kala Tesfaye MD [facility] [address] [facility] [address], [place] [address] 05/31/2024 11:08:32 05/31/2024 11:59:19 Adult health examination 204401722 Z00.00 Screening for disorder 970906359 Z13.9 Atrial fibrillation 4943 6004 I48.91 Anxiety disorder 8321538 06 F41.9 Gastroesop hageal reflux disease 213468552 K21.9 [id number] Kala Tesfaye MD [facility] Primary Care [facility] [address] [facility] [address] [place] [address] 11/29/2024 10:55:53 11/29/2024 11:52:24 Gastroesophageal reflux disease 571617026 K21.9 Hernia of anterior abdominal wall 227888426 K43.9 Asthma 078403850 J45.90 9 Migraine 03943706 G43.90 9 Screening for cardiovascular system disease 917675761 Z13.6 Vitamin D deficiency 347 95786 E55.9 Health Concerns Section Related Observation LastModified by Organization Detai ls LastModified Time None Recorded Concern Status LastModified by Organization Details LastModified Time None Recorded Advance Directives Directive Y: Payers Encounter Date Sequence Insurance Name Policy Number Policy Mead Covered Member ID Mead Member ID Guarantor Name 02/27/2023 1 [place] Suzy Mckinleyuer [id number] Suzy Mireles 02/27/2023 2 [place] 111 Suzy Aline [id number] Suzy Aline 08/04/2023 1 [place] Suzy Mckinleyuer [id number] Suzy Bauer 08/04/2023 2 [place] 111 Suzy Mckinleyuer [id number] Suzy Mireles 12/01/2023 1 [place] Suzy Mckinleyuer [id number] Suzy Mireles 12/01/2023 2 [place] 111 Suzy Mckinleyuer [id number] Suzy Mireles 05/31/2024 1 [place] Suzy Mckinleyuer [id number] Suzy Mireles 05/31/2024 2 [place] 111 Suzy Mckinleyuer [id number] Suzy Mireles 11/29/2024 1 [place] Suzy Mckinleyuer [id number] Suzy Mireles 11/29/2024 2 [place] 111 Suzy Mckinleyuer [id number] Suzy Bauer Notes Date Note Type Note Provider Name and Address Organization Details Recorded Time 3 text/htm l Patient Name: Suzy MckinleybariDate Of Service: Thursday ( 02.27.2023 ): 1950 [...] Symptoms: none Medication Reconciliation: from medication list. Qawntawpppx66/25/2022: Bone density scan and mammography performed on [...] As DirectedADRs List Reviewed 02/27/2023Lisinopril CoughVaccination and Gqilttktzoft3334-10 Nfoeaqlqs4968-32 Covid Booster Egzjgr0736-30 Covid Zudtlr4073-25 Prevnar 219515-48 Pneumovax (high RiskSurgical HistoryBurns, Vaginal Hysterectomy, AppendectomyPreventative Testing Confirmed by Our Qxzjqqk1409/08/2022 ALBUMIN 4.4 G/DL03/17/2022 MAMMOGRAM / DEXA SCAN10/12/2015 COLONOSCOPY (5 YEARS) / LETTER [...] Ca of Stomach Kala Tesfaye MD [address] [facility] [address], [place], [address], [facility] [employer] [facility] 02/27/2023 11:39:20 3 text/htm l Patient Name: [...] As DirectedADRs List Reviewed 08/04/2023Lisinopril CoughVaccination and Awmwotlugtsj1583-78 Cpwltauaj7427-32 Covid Booster Buzgbm6391-08 Covid Mafipt7215-49 Prevnar 13 Sf8424-98 PneumovaxSurgical HistoryBurns, Vaginal Hysterectomy, AppendectomyPreventative Testing Confirmed by Our Idgdvhd0304/22/2023 ALBUMIN 4.3 G/DL N003/17/2022 MAMMOGRAM DEXA SCAN10/12/2015 COLONOSCOPY (5 YEARS) OPHTHALMOLOGYSocial HistorySOCIAL HISTORY:Marital Status: MLiving Status: With [...] Ca of Stomach Kala Tesfaye MD [address] [facility], [address] [place] [address], [place], [address], [facility] [employer] 08/04/2023 10:51:43 4 text/htm l Patient Name: [...] DirectedAdverse Drug Reactions ReviewedLisinopril Cough Vaccination and Wdexnaejjyht6341-96 Crosdnmuc0613-60 Covid Booster Nbkxeg8547-73 Covid Bjobhe2531-17 Prevnar 13 Hq2043-55 Pneumovax Surgical Eqsfwbv9789-95 Nrscl1347-18 Vaginal Jizsnxzecbqx6350-98 Appendectomy Preventative Hwjhngw0404/22/2023 ALBUMIN 4.3 G/DL N003/17/2022 MAMMOGRAM / DEXA [...] Ca of Stomach Kala Tesfaye MD [address] [facility], [facility] [address], [place], [address], [place] [facility] 12/01/2023 11:36:51 4 text/htm l Patient Name: [...] specific medication. Rate control: controlled ventricular response [id number] Criteria: Age 65-74 and and considered low [...] PREVNAR 13 GC PREVNAR 20 Needed( ) 2020- COVID PFIZER( ) 2024-05 COVID BOOSTER PFIZER(X) 2024-04 RSV Surgical Zjkagup6697-59 Mhrno6061-15 Vaginal Jncnzpzphsdn1299-87 Appendectomy Preventative Testing( ) 04/29/2024 Albumin 4.1 [...] 0.60-1.00 MG/DLEGFR 61 > OR = 60 ML/MIN/1.86J2ZKUYRVYXT, TOTAL 0.8 0.2-1.2 MG/DLALKALINE PHOSPHATASE 133 37-153 U/LAST 35 10-35 U/LALT 30 6-29 U/LLIPID PANEL, STANDARD Date: 4CHOLESTEROL, TOTAL 161 <200 MG/DLHDL CHOLESTEROL 79 > OR = 50 MG/DLTRIGLYCERIDES 58 <150 MG/DLLDL-CHOLESTEROL 69 MG/DL (CALC) Kala Tesfaye MD [address] [facility] [address], [place], [address], [facility] [email or web address] 05/31/2024 11:46:10 5 text/htm l Patient Name: Suzy Faulkner Of Service: Thursday ( 11.29.2024 ): 1950 Age: 74 Vital Signs:Blood Pressure: Sitting Rt. Arm 118/60Pulse: Sitting 84 /min and RegularRespiratory Rate: 16Height 63 in or 1.6 mWeight 117 lb or 53.1 kgBMI 20.7Temperature: 97 F or 36.1 CPulse Oximetry: 94 % at rest on no oxygen Chief Complaint: Addressed in HPI Problems or conditions discussed in the HPI were the only ones reviewed during the encounter.Only social and family history addressed in the HPI were reviewed during this encounter. Attendant(s): NoneConstitutional and Systemic Symptoms:none Medication Reconciliation: from medication list. History of Present Illness #1. Hx of asthma. Daily medications: none. Uses bronchodilators not at all. Night time exacerbations: less than 2 times monthly There has been no cough, congestion, or sputum production. No changes in exercise tolerance. Denies any fever or chills. Tolerating the medications without problems. The current status could be classified as Intermittent asthma. Using nebulizer Treatments: No. #2. Hx of esophageal reflux currently stable. Hx of Complications: none The severity, duration and intensity of symptoms have improved. Frequency: every meal Treatment consists medications taken on a regular basis. Current therapy includes no medication. There has been no nausea, eructation, vomiting, hematemesis, dysphagia, velopharyngeal insufficiency and odynophagia. No change in he frequency or intensity of symptoms. Has had no melena. Has had no . Discussed use of H2 antagonists NA. #3. Hx of the ventral hernia doing well. No interval c/o of any abdominal pain or symptoms related to obstruction. Fully reducible and no signs of strangulation or incarceration. #4. Hx of migraines currently stable: No change in duration, frequency or intensity of headaches. Occurs at a frequency of approximately weekly. Location: generalized area. Associated Symptoms: nausea and photophobia Hx of CVS no hx. Currently taking Rizatriptan. The headaches are adequately controlled. MIDAS Level: 0-5 Little or no disability Active Medication ListProventil 2 Puffs Qid PrnFlonase 0.05 MG/SPRAY (SPRAY, METERED - NASAL) Two Sprays Each Nostril Once DailyZomig 5 MG (TABLET - ORAL) As DirectedProtonix 40 MG GRANULE, DELAYED RELEASE One DailyRizatriptan 10 MG TABLET One As Needed For MigrainsWixela Inhub 0.1 MG/INH- 0.05 MG /INH (POWDER - INHALATION) One EverySpiriva As Directed Adverse Drug Reactions ReviewedLisinopril Cough Vaccination and Immunization( ) 2003- PNEUMOVAX( ) 2024-05 INFLUENZA(X) 2014-07 PREVNAR 13 GC PREVNAR 20 Needed( ) 2020- COVID PFIZER( ) 2024-05 COVID BOOSTER PFIZER( ) 2024-04 RSV Surgical Frhpyst7005-48 Iopxb6842-13 Vaginal Izejhfcvxsbd5680-69 Appendectomy Preventative Testing( ) 06/28/2024 Mammogram 06/28/2026( ) 06/28/2024 DEXA Scan 06/28/2026( ) 04/29/2024 Albumin 4.1 G/DL N(X) 10/12/2015 Colonoscopy (5 Years) 10/12/2020( ) 03/14/2014 [...] Ca of Stomach Kala Tesfaye MD [address] [facility], [facility] [address], [place], [address], [facility] 11/29/2024 11:42:37 OBGyn Episode No OBEpisode recorded.
--- OUTSIDE RECORDS SUMMARY | 2024-12-10 07:18 | XMS_ITS | Encounter Summary ---
Author Organization [facility] Address [address] [place] [address] Phone Care Team Providers Care Junior Sales Assistant Name Role Phone Saul Tesfaye MD Primary Care Provider [phone] Helen Mullen APRN, CAR PORTER Unavailable Reason for Referral * Radiology Services (Routine) - Closed Specialty Diagnoses / Procedures Referred By Elsi hoover Referred To Contact Radiology Diagnoses Pre-op testing Procedures EKG 12 LEAD Sami Hill DO [address] [place] [address] Phone: tel: fax: Referral ID Status Reason Start Date Expiration Date Visits Re quested Visits Authorized [id number] Closed 07/04/2020 1 1 ESTATE BRANCH MANAGER Encounter Details Date Type Department Care Team (Late st Contact Info) Description 07/04/2020 [facility] [place] [id number] Sami Hill DO [address] [place] [address] Pre-op testing (Primary Dx) Social History Tobacco Use Types Packs/Day Years Used Date Smoking Tobacco: Former Cigarettes Q uit: 1994 Smokeless Tobacco: Never Alcohol Use Standard Drinks/Week Comments Not Currently 0 (1 standard drink = 0.6 oz pur e alcohol) Comments Unknown Sex and Gender Information Value Date Recorded Sex Assigned at Not on file Legal Sex Female 11:10 AM REAL ESTATE BRANCH MANAGER Gender Identity Not on file Sexual Orientation Not on file COVID-19 Exposure Response Date Recorded In the last month, have you been in contact with someone who was confirmed or suspected to have Coronavirus / COVID-19? No / Unsure 07/05/2020 9:19 AM REAL ESTATE BRANCH MANAGER documented as of this encounter Plan of Treatment Not on file documented as of this encounter Results * EKG 12 LEAD (07/05/2020 10:02 AM REAL ESTATE BRANCH MANAGER) Ventricular Rate BPM EXTERNAL EKG Atrial Rate BPM EXTERNAL EKG P-R Interval 142 ms EXTERNAL EKG QRS Duration 88 ms EXTERNAL EKG Q-T Duration 396 ms EXTERNAL EKG QTC CALCULATION 440 ms EXTERNAL EKG P [place] 85 degrees EXTERNAL EKG R [place] 87 degrees EXTERNAL EKG T [place] 81 degrees EXTERNAL EKG 07/05/2020 10:0 2 AM REAL ESTATE BRANCH MANAGER Impressions EXTERNAL EKG - 07/05/2020 10:51 AM REAL ESTATE BRANCH MANAGER Sinus rhythm Possible right atrial abnormality rSr'(V1) - probable normal variant Comparison Summary: No serial comparison made Summary: Borderline ECG Confirmed by Francie Stoll [id number] on 07/05/2020 10:51:23 AM Narrative Procedure Note Yuni Marmolejo MD - 07/05/2020 IMPRESSION: Sinus rhythm Possible right atrial abnormality rSr'(V1) - probable normal variant Comparison Summary: No serial comparison made Summary: Borderline ECG Confirmed by Francie Stoll [id number] on 07/05/2020 10:51:23 AM Sami Hill DO IMG ECG ORDERABLES Final Result EXTERNAL EKG * (ABNORMAL) HEMOGLOBIN & HEMATOCRIT (H&H) (07/05/2020 9:51 AM REAL ESTATE BRANCH MANAGER) HEMOGLOBIN (HGB) 15.6 12.0 - 15.8 g/dL 07/05/2020 10:30 AM REAL ESTATE BRANCH MANAGER [facility] HEMATOCRIT (HCT) 48.7(H) 36.0 - 47.0 % 07/05/2020 10:30 AM [facility] Blood Venipuncture / Unknown 07/05/2020 9:51 AM REAL ESTATE BRANCH MANAGER 07/05/2020 10:26 AM REAL ESTATE BRANCH MANAGER us Sami Hill DO HEMATOLOGY ORDERABL ES Final Result [facility] [address] [place] [address] * (ABNORMAL) BASIC METABOLIC PANEL W/ CALCIUM TOTAL (07/05/2020 9:51 AM REAL ESTATE BRANCH MANAGER) SODIUM 141 136 - 144 mmol/L 07/05/2020 11:08 AM [facility] POTASSIUM 4.9 3.5 - 5.1 mmol/L 07/05/2020 11:08 AM [facility] CHLORIDE 103 100 - 110 mmol/L 07/05/2020 11:08 AM [facility] CO2, VENOUS 27 22 - 32 mmol/L 07/05/2020 11:08 AM [facility] ANION GAP 15.9 8.0 - 20.0 mmol/L 07/05/2020 11:08 AM [facility] GLUCOSE 84 70 - 99 mg/dL 07/05/2020 11:08 AM [facility] BUN 15 8 - 23 mg/dL 07/05/2020 11:08 AM [facility] CREATININE, BLOOD 0.98 0.60 - 1.10 mg/dL 07/05/2020 11:08 AM [facility] BUN/CREATININE RATIO 15 12 - 20 ratio 07/05/2020 11:08 AM [facility] CALCIUM 10.4(H) 8.9 - 10.3 mg/dL 07/05/2020 11:08 AM [facility] GFR, EST. NONAFRICAN 56(L) >=60 07/05/2020 11:08 AM [facility] GFR, EST. >60 >=60 07/05/2020 11:08 AM REAL ESTATE BRANCH MANAGER [facility] Comment: Creatinine Clearance is the preferred criteria for selecting drug dose adjustments in renally impaired patients. The GFR is provided as additional pertinent clinical information. GFR is reported in mL/min/1.73 sq m. Blood Venipuncture / Unknown 07/05/2020 9:51 AM REAL ESTATE BRANCH MANAGER 07/05/2020 10:26 AM REAL ESTATE BRANCH MANAGER us Sami Hill DO CHEMISTRY ORDERABLE S Final Result [facility] [address] [place] [address] documented in this encounter Visit Diagnoses Diagnosis Pre-op testing- Primary Preoperative examination, unspecified Pre-op testing Preoperative examination, unspecified documented in this encounter Care Teams Junior Sales Assistant Relationship Specialty Start Date End Date Saul Tesfaye MD [address] [place] [address] [address] [place] [address] PCP - General Internal Medicine 07/05/20 Helen Mullen APRN, CAR PORTER [address] [place] [address] Nurse Practitioner Advanced Practice Nurse 08/22/24 documented as of this encounter
--- OUTSIDE RECORDS SUMMARY | 2024-12-10 07:18 | XMS_ITS | Encounter Summary ---
Author Organization [facility] Address [address] [place] [address] Phone Care Team Providers Care Sap Pi Developer Name Role Phone Saul Tesfaye MD Primary Care Provider [phone] Helen Mullen APRN, CASTING MACHINE SERVICE OPERATOR Unavailable Encounter Details Date Type Department Care Team (Latest Contact Info) Description 07/02/2020 [facility] [address] [place] [id number] Allan Francis MD [address] [facility] [address] [place] [address] Pre-op chest exam (Primary Dx) Social History Tobacco Use Types Packs/Day Years Used Date Smoking Tobacco: Never Assessed Comments Unknown Sex and Gender Information Value Date Recorded Sex Assigned at Not on file Legal Sex Female 11:10 AM CHIEF NURSE ANESTHETIST Gender Identity Not on file Sexual Orientation Not on file COVID-19 Exposure Response Date Recorded In the last month, have you been in contact with someone who was confirmed or suspected to have Coronavirus / COVID-19? No / Unsure 07/05/2020 9:19 AM CHIEF NURSE ANESTHETIST documented as of this encounter Plan of Treatment Scheduled Orders Name Type Priority Associated Diagnoses Orde r Schedule SARS-COV-2 BY MOLECULAR Microbiology Routine Pre-op chest exam Expected: 07/13/2020, Expires: 08/01/2020 documented as of this encounter Visit Diagnoses Diagnosis Pre-op chest exam- Primary Pre-operative respiratory examination documented in this encounter Care Teams Sap Pi Developer Relationship Specialty Start Date End Date Saul Tesfaye MD [address] [facility] [address] [place] [address] PCP - General Internal Medicine 07/05/20 Helen Mullen APRN, CASTING MACHINE SERVICE OPERATOR [address] [place] [address] Nurse Practitioner Advanced Practice Nurse 08/22/24 documented as of this encounter
--- OUTSIDE RECORDS SUMMARY | 2024-12-10 07:19 | XMS_ITS | CONTINUITY OF CARE DOCUMENT ---
Author Name maryann wolf Address Unknown Organization [facility] Address [address] [place] [address] [address] [place] [address] Phone [phone] Care Team Providers Care Obstetrician Gynecologist Name Role Phone Bret MARC, Faisal Unavailable [phone] FITO MARC, KALA Unavailable FITO MARC, KALA Unavailable [phone] INSURANCE PROVIDERS Payer name Policy type / Coverage type [place] red libertarian ID [facility] [id number] [place] MED[place] Medicare [id number]
--- OUTSIDE RECORDS SUMMARY | 2024-12-10 07:19 | XMS_ITS | Continuity of Care Document ---
Author Organization [facility] Address [address] [place] [address] Phone Care Team Providers Care Plug Making Operator Name Role Phone Burciaga OD, Rudy Unavailable Unavailable Advance Directives Directive Yes / No Effective Date File Name No Information Encounters Encounter Description Practice Location Reason(s) For Visit Diagnoses Date Provider Providers Copied on Encounter [facility], [address], [place], [place], [id number], [place] tel:[phone] [facility] No Information Jan- 5-200 0 Burciaga OD Rudy. [address] , [address], [place], [address], [place]. tel:[phone] Family History Family Member Type Diagnosis Age At Onset No Information Payers Payer name Insurance type Covered green party ID Authoriza tion(s) No Information Social [...]
--- OUTSIDE RECORDS SUMMARY | 2024-12-10 07:19 | XMS_ITS | Clinical Summary ---
Author Organization [facility] Address [address] [place] [address] Phone Care Team Providers Care Industrial Engineering Technician Name Role Phone Saul Tesfaye MD Primary Care Provider [phone] Helen Mullen APRN, PHARMACEUTICAL WORKER Unavailable Allergies No known active allergies Medications [...] Active fluticasone (FLONASE) 50 MCG/ACT Suspension 1 Bailey by Nasal route as needed. Use in each nostril as directed. Active Active Problems No known active problems Encounters Date Type Department Care Team Description 09/15/2024 Results Follow-Up [facility] - Gastroenterology - Star [address] [place] [address] Alfonso Cornelius MD 09/13/2024 8:30 AM CARTRIDGE GAUGER - 09/13/2024 9:00 AM CARTRIDGE GAUGER [facility] [address] [place] [address] Alfonso Cornelius MD EGD-GASTRIC BIOPSIES, GE JUNCTION BIOPSIES RULE OUT MEDEIROS'S ESOPHAGUS 09/13/2024 8:00 AM CARTRIDGE GAUGER Anesthesia [facility] [address] [place] [address] David Lemos APRN, PASSENGER RELATIONS REPRESENTATIVE 09/13/2024 7:10 AM CARTRIDGE GAUGER Ancillary [facility] Main 1 [place] [address] Alfonso Cornelius MD Provider, Anesthesiologist 09/13/2024 7:00 AM CARTRIDGE GAUGER - 09/13/2024 8:55 AM CARTRIDGE GAUGER [facility] Preop/Pacu II 1 [place] [address] Alfonso Cornelius MD Discharge Disposition: Discharged to home or Selfcare 09/13/2024 Travel from Last 3 Months Family History [...] on file Legal Sex Female 11:10 AM CARTRIDGE GAUGER Gender Identity Not on file Sexual Orientation Not on file Last Filed Vital Signs Vital Sign Reading Time Taken Comments Blood Pressure 139/80 09/13/2024 8:46 AM CARTRIDGE GAUGER Pulse 78 09/13/2024 8:46 AM CARTRIDGE GAUGER Temperature 37 C (98.6 F) 09/13/2024 8:46 AM CARTRIDGE GAUGER Respiratory Rate 18 09/13/2024 8:46 AM CARTRIDGE GAUGER Oxygen Saturation 100% 09/13/2024 8:46 AM CARTRIDGE GAUGER Inhaled Oxygen Concentration - - Weight 52.2 kg (115 lb) 09/07/2024 11:37 AM CARTRIDGE GAUGER Height 160 cm (5' 3 ) 09/07/2024 11:37 AM CARTRIDGE GAUGER Body Mass Index 20.37 09/07/2024 11:37 AM CARTRIDGE GAUGER Plan of Treatment Health Maintenance Due Date [...] Comments PATHOLOGY SURGICAL Routine 09/13/2024 8:10 AM CARTRIDGE GAUGER FL ESOPHAGOGASTRODUODENOSCOP Y TRANSORAL DIAGNOSTIC 09/13/2024 8:03 AM CARTRIDGE GAUGER EGD-GASTRIC BIOPSIES, GE JUNCTION BIOPSIES RULE OUT MEDEIROS'S ESOPHAGUS Special Needs CC/FRAILY in media 09/08 Dx reflux FL EGD FLEXIBLE TRANSNASAL D X W/COLLJ SPEC BR/WA 09/13/2024 8:03 AM CARTRIDGE GAUGER EGD-GASTRIC BIOPSIES, GE JUNCTION BIOPSIES RULE OUT MEDEIROS'S ESOPHAGUS Special Needs CC/FRAILY in media 09/08 Dx reflux GI LAB IMAGING - EGD Routine 09/13/2024 7:08 AM CARTRIDGE GAUGER from Last 3 Months Results * Pathology Surgical (09/13/2024 8:10 AM [facility]) Case Report Surgical Pathology Report Case: [id number] Authorizing Provider: Alfonso Cornelius MD Collected: 09/13/2024 08:10 AM Ordering Location: [facility] Received: 09/13/2024 08:31 AM [facility] Gi Lab Main Pathologist: Roxy Loredo MD PhD Specimens: A) - Stomach, GASTRIC BIOPSIES B) - GE Junction, GE JUNCTION BIOPSIES RULE OUT MEDEIROS'S ESOPHAGUS 09/14/2024 10:32 AM [facility] FINAL DIAGNOSIS A. Stomach, gastric biopsy: - Gastric mucosa with focal mild chronic inflammation - Negative for acute inflammation or H. pylori by H&E stain B. GE junction, rule out Medeiros's esophagus, biopsy: - Gastric mucosa with focal mild chronic inflammation - Negative for acute inflammation or H. pylori by H&E stain - Negative for intestinal metaplasia 09/14/2024 10:32 AM [facility] at [address]32 CARTRIDGE GAUGER Pre-Operative Diagnosis GASTRO REFLUX 09/14/2024 10:32 AM [facility] Gross Description A. GASTRIC BIOPSIES The [...] hours, 33 minutes. KS/sb 09/14/2024 10:32 AM [facility] Microscopic Description Microscopic examination was performed which supports the final diagnosis. All control tissues stained appropriately. 09/14/2024 10:32 AM [facility] Tissue STOMACH STRUCTURE / Unknown 09/13/2024 8:10 AM CARTRIDGE GAUGER 09/13/2024 8:31 AM CARTRIDGE GAUGER Tissue specimen (specimen) CARDIOESOPHAGEAL JUNCTION STRUCTURE / Unknown 09/13/2024 8:13 AM CARTRIDGE GAUGER 09/13/2024 8:31 AM CARTRIDGE GAUGER us Alfonso Cornelius MD PATHOLOGY/CYTOLOGY ORDERABLES Fi nal Result [facility] [address] [place] [address] * GI LAB IMAGING - EGD (09/13/2024 7:08 AM CARTRIDGE GAUGER) us Alfonso Cornelius MD IMG DIAGNOSTIC ORDERABLES Final Result from Last 3 Months Insurance MEDICARE [facility] Care Teams Industrial Engineering Technician Relationship Specialty Start Date End Date Saul Tesfaye MD [address] [facility] [address] [place] [address] PCP - General Internal Medicine 07/05/20 Helen Mullen APRN, PHARMACEUTICAL WORKER [address] [place] [address] Nurse Practitioner Advanced Practice Nurse 08/22/24
--- NOTE | 2024-12-10 07:21 | ECG_ITS ---
Test Date: 2024-12-10 07:27:29 Measurements Intervals [place] Rate: 96 P: 76 [place]: 164 QRS: -15 QRSD: 93 T: 51 QT: 355 QTc: 449 Interpretive Statements SINUS RHYTHM WITH VENTRICULAR BIGEMINY POSSIBLE RIGHT ATRIAL ENLARGEMENT POSSIBLE LEFT ATRIAL ENLARGEMENT INCOMPLETE RIGHT BUNDLE BRANCH BLOCK BASELINE ARTIFACT- I, II, III, AVR, AVL, AVF ABNORMAL ECG No previous ECG available for comparison Electronically Signed On 12-10-2024 10:06:55 CDT by Charlie Linares D.O.
[2024-12-10 07:31] LABS: Basophils Percent Auto 0.4 % (0.2-1.2); Eosinophils Absolute Auto 0.6 K/mm3 (0-0.3); Eosinophils Percent Auto 6.9 % (0-4.4); Hematocrit 48.4 % (37.0-47.0); Hemoglobin 15.7 g/dL (12.0-15.0); Immature Granulocyte Absolute 0.03 K/mm3 (0.00-0.031); Immature Granulocyte Percent A 0.3 % (0-0.5); Lymphocytes Absolute Auto 1.17 K/mm3 (0.9-3.2); Lymphocytes Percent Auto 12.8 % (18.3-44.2); Mean Corpuscular HGB Conc 32.4 g/dl (32-36); Mean Corpuscular Volume 95.7 fl (80-100); Monocytes Absolute Auto 0.7 K/mm3 (0.1-0.6); Monocytes Percent Auto 7.7 % (2.6-8.5); Neutrophils Absolute Auto 6.6 K/mm3 (1.3-6.7); Neutrophils Percent Auto 71.9 % (45.5-73.1); Platelet Count Result 196 k/mm3 (150-375); Red Blood Count 5.06 M/mm3 (4.2-5.4); White Blood Count 9.2 K/mm3 (4.5-10.0)
[2024-12-10 07:42] LABS: Alanine Aminotransferase 30 U/L (6-35); Albumin Level 4.6 g/dL (3.5-5.1); Alkaline Phosphatase 128 U/L (38-126); Anion Gap 9 mmol/L (4-12); Aspartate Amino Transferase 41 U/L (14-36); Bilirubin,Total 0.9 mg/dL (0.2-1.3); Blood Urea Nitrogen 17 mg/dL (7-17); Calcium 9.5 mg/dL (8.4-10.2); Carbon Dioxide 27 mmol/L (22-30); Chloride 102 mmol/L (98-107); Estimated CRCL calculation 36 ml/min; Estimated Glomerular Filt Rate 55; Glucose 93 mg/dL (65-110); Lipase 48 U/L (23-300); Potassium 3.8 mmol/L (3.4-5.0); Prothrombin Time 13.3 Seconds (11.1-14.7); Sodium 138 mmol/L (137-145)
[2024-12-10 07:43] LABS: Partial Thromboplastin Time 28.3 Seconds (22.3-36.8)
--- OUTSIDE RECORDS SUMMARY | 2024-12-10 07:47 | XMS_ITS | Encounter Summary ---
Author Organization [facility] Address [address] [place] [address] Phone Care Team Providers Care Brass And Wind Instrument Repairer Name Role Phone Saul Tesfaye MD Primary Care Provider [phone] Helen Mullen APRN, PATIENT CLERICAL ASSISTANT Unavailable Reason for Referral * Radiology Services (Routine) - Closed Specialty Diagnoses / Procedures Referred By Elsi hoover Referred To Contact Radiology Diagnoses Pre-op testing Procedures EKG 12 LEAD Sami Hill DO [address] [place] [address] Phone: tel: fax: Referral ID Status Reason Start Date Expiration Date Visits Re quested Visits Authorized [id number] Closed 07/04/2020 1 1 TECH Encounter Details Date Type Department Care Team (Late st Contact Info) Description 07/04/2020 [facility] 1 [place] [id number] Sami Hill DO [address] [place] [address] Pre-op testing (Primary Dx) Social History Tobacco Use Types Packs/Day Years Used Date Smoking Tobacco: Former Cigarettes Q uit: 1994 Smokeless Tobacco: Never Alcohol Use Standard Drinks/Week Comments Not Currently 0 (1 standard drink = 0.6 oz pur e alcohol) Comments Unknown Sex and Gender Information Value Date Recorded Sex Assigned at Not on file Legal Sex Female 11:10 AM ENDO TECH Gender Identity Not on file Sexual Orientation Not on file COVID-19 Exposure Response Date Recorded In the last month, have you been in contact with someone who was confirmed or suspected to have Coronavirus / COVID-19? No / Unsure 07/05/2020 9:19 AM ENDO TECH documented as of this encounter Plan of Treatment Not on file documented as of this encounter Results * EKG 12 LEAD (07/05/2020 10:02 AM ENDO TECH) Ventricular Rate BPM EXTERNAL EKG Atrial Rate BPM EXTERNAL EKG P-R Interval 142 ms EXTERNAL EKG QRS Duration 88 ms EXTERNAL EKG Q-T Duration 396 ms EXTERNAL EKG QTC CALCULATION 440 ms EXTERNAL EKG P [place] 85 degrees EXTERNAL EKG R [place] 87 degrees EXTERNAL EKG T [place] 81 degrees EXTERNAL EKG 07/05/2020 10:0 2 AM ENDO TECH Impressions EXTERNAL EKG - 07/05/2020 10:51 AM ENDO TECH Sinus rhythm Possible right atrial abnormality rSr'(V1) - probable normal variant Comparison Summary: No serial comparison made Summary: Borderline ECG Confirmed by Francie Stoll [id number] on 07/05/2020 10:51:23 AM Narrative Procedure Note Yuni Marmolejo MD - 07/05/2020 IMPRESSION: Sinus rhythm Possible right atrial abnormality rSr'(V1) - probable normal variant Comparison Summary: No serial comparison made Summary: Borderline ECG Confirmed by Francie Stoll [id number] on 07/05/2020 10:51:23 AM Sami Hill DO IMG ECG ORDERABLES Final Result EXTERNAL EKG * (ABNORMAL) HEMOGLOBIN & HEMATOCRIT (H&H) (07/05/2020 9:51 AM ENDO TECH) HEMOGLOBIN (HGB) 15.6 12.0 - 15.8 g/dL 07/05/2020 10:30 AM ENDO TECH [facility] HEMATOCRIT (HCT) 48.7(H) 36.0 - 47.0 % 07/05/2020 10:30 AM [facility] Blood Venipuncture / Unknown 07/05/2020 9:51 AM ENDO TECH 07/05/2020 10:26 AM ENDO TECH us Sami Hill DO HEMATOLOGY ORDERABL ES Final Result [facility] #[address] [place] [address] * (ABNORMAL) BASIC METABOLIC PANEL W/ CALCIUM TOTAL (07/05/2020 9:51 AM ENDO TECH) SODIUM 141 136 - 144 mmol/L 07/05/2020 11:08 AM [facility] POTASSIUM 4.9 3.5 - 5.1 mmol/L 07/05/2020 11:08 AM [facility] CHLORIDE 103 100 - 110 mmol/L 07/05/2020 11:08 AM [facility] CO2, VENOUS 27 22 - 32 mmol/L 07/05/2020 11:08 AM [facility] ANION GAP 15.9 8.0 - 20.0 mmol/L 07/05/2020 11:08 AM [facility] GLUCOSE 84 70 - 99 mg/dL 07/05/2020 11:08 AM [facility] BUN 15 8 - 23 mg/dL 07/05/2020 11:08 AM [facility] CREATININE, BLOOD 0.98 0.60 - 1.10 mg/dL 07/05/2020 11:08 AM [facility] BUN/CREATININE RATIO 15 12 - 20 ratio 07/05/2020 11:08 AM [facility] CALCIUM 10.4(H) 8.9 - 10.3 mg/dL 07/05/2020 11:08 AM [facility] GFR, EST. NONAFRICAN 56(L) >=60 07/05/2020 11:08 AM [facility] GFR, EST. >60 >=60 07/05/2020 11:08 AM ENDO TECH [facility] Comment: Creatinine Clearance is the preferred criteria for selecting drug dose adjustments in renally impaired patients. The GFR is provided as additional pertinent clinical information. GFR is reported in mL/min/1.73 sq m. Blood Venipuncture / Unknown 07/05/2020 9:51 AM ENDO TECH 07/05/2020 10:26 AM ENDO TECH us Sami Hill DO CHEMISTRY ORDERABLE S Final Result [facility] [address] [place] [address] documented in this encounter Visit Diagnoses Diagnosis Pre-op testing- Primary Preoperative examination, unspecified Pre-op testing Preoperative examination, unspecified documented in this encounter Care Teams Brass And Wind Instrument Repairer Relationship Specialty Start Date End Date Saul Tesfaye MD [address] [place] [address] [address] [place] [address] PCP - General Internal Medicine 07/05/20 Helen Mullen APRN, PATIENT CLERICAL ASSISTANT [address] [place] [address] Nurse Practitioner Advanced Practice Nurse 08/22/24 documented as of this encounter
--- OUTSIDE RECORDS SUMMARY | 2024-12-10 07:47 | XMS_ITS | CONTINUITY OF CARE DOCUMENT ---
Author Name maryann wolf Address Unknown Organization [facility] Address [id number] [place] [address] [address] [place] [address] Phone [phone] Care Team Providers Care Observer Electrical Prospecting Name Role Phone Bret MARC, Faisal Unavailable [phone] FITO MARC, KALA Unavailable FITO MARC, KALA Unavailable [phone] INSURANCE PROVIDERS Payer name Policy type / Coverage type [place] red alliance party ID [facility] [id number] [place] Medicare [id number]
--- OUTSIDE RECORDS SUMMARY | 2024-12-10 07:47 | XMS_ITS | Continuity of Care Document ---
Author Organization [facility] Address [address] [place] [address] Phone Care Team Providers Care Manager Php Name Role Phone Burciaga OD, Rudy Unavailable Unavailable Advance Directives Directive Yes / No Effective Date File Name No Information Encounters Encounter Description Practice Location Reason(s) For Visit Diagnoses Date Provider Providers Copied on Encounter [facility], [address], [place], [place], [id number], [place] tel:[phone] [facility] No Information Jan- 5-200 0 Burciaga OD Rudy. [address] , [address], [place], [address], [place]. tel:[phone] Family History Family Member Type Diagnosis Age [...]
--- OUTSIDE RECORDS SUMMARY | 2024-12-10 07:47 | XMS_ITS | Clinical Summary ---
Author Organization [facility] Address [address] [place] [address] Phone Care Team Providers Care Radiosonde Operator Name Role Phone Saul Tesfaye MD Primary Care Provider [phone] Helen Mullen APRN, INDUSTRIAL SWEEPER CLEANER Unavailable Allergies No known active allergies Medications [...] Active fluticasone (FLONASE) 50 MCG/ACT Suspension 1 [place] by Nasal route as needed. Use in each nostril as directed. Active Active Problems No known active problems Encounters Date Type Department Care Team Description 09/15/2024 Results Follow-Up [facility] - Gastroenterology - [place] [address] [place] [address] Alfonso Cornelius MD 09/13/2024 8:30 AM SURGICAL BRACE MAKER - 09/13/2024 9:00 AM SURGICAL BRACE MAKER [facility] Periop [address] [place] [address] Alfonso Cornelius MD EGD-GASTRIC BIOPSIES, GE JUNCTION BIOPSIES RULE OUT MEDEIROS'S ESOPHAGUS 09/13/2024 8:00 AM SURGICAL BRACE MAKER Anesthesia Event [facility] [address] [place] [address] David Lemos APRN, MARKETING COMMUNITY LIAISON 09/13/2024 7:10 AM SURGICAL BRACE MAKER Ancillary Procedure [facility] Main [address] [place] [address] Alfonso Cornelius MD Provider, Anesthesiologist 09/13/2024 7:00 AM SURGICAL BRACE MAKER - 09/13/2024 8:55 AM SURGICAL BRACE MAKER Hospital [facility] Preop/Pacu II 1 [place] [address] Alfonso Cornelius MD Discharge Disposition: Discharged to [...] on file Legal Sex Female 11:10 AM SURGICAL BRACE MAKER Gender Identity Not on file Sexual Orientation Not on file Last Filed Vital Signs Vital Sign Reading Time Taken Comments Blood Pressure 139/80 09/13/2024 8:46 AM SURGICAL BRACE MAKER Pulse 78 09/13/2024 8:46 AM SURGICAL BRACE MAKER Temperature 37 C (98.6 F) 09/13/2024 8:46 AM SURGICAL BRACE MAKER Respiratory Rate 18 09/13/2024 8:46 AM SURGICAL BRACE MAKER Oxygen Saturation 100% 09/13/2024 8:46 AM SURGICAL BRACE MAKER Inhaled Oxygen Concentration - - Weight 52.2 kg (115 lb) 09/07/2024 11:37 AM SURGICAL BRACE MAKER Height 160 cm (5' 3 ) 09/07/2024 11:37 AM SURGICAL BRACE MAKER Body Mass Index 20.37 09/07/2024 11:37 AM SURGICAL BRACE MAKER Plan of Treatment Health Maintenance Due Date [...] Comments PATHOLOGY SURGICAL Routine 09/13/2024 8:10 AM SURGICAL BRACE MAKER [place] ESOPHAGOGASTRODUODENOSCOP Y TRANSORAL DIAGNOSTIC 09/13/2024 8:03 AM SURGICAL BRACE MAKER EGD-GASTRIC BIOPSIES, GE JUNCTION BIOPSIES RULE OUT MEDEIROS'S ESOPHAGUS Special Needs CC/FRAILY in media 09/08 Dx reflux [place] EGD FLEXIBLE TRANSNASAL D X W/COLLJ SPEC BR/WA 09/13/2024 8:03 AM SURGICAL BRACE MAKER EGD-GASTRIC BIOPSIES, GE JUNCTION BIOPSIES RULE OUT EMDEIROS'S ESOPHAGUS Special Needs CC/FRAILY in media 09/08 Dx reflux GI LAB IMAGING - EGD Routine 09/13/2024 7:08 AM SURGICAL BRACE MAKER from Last 3 Months Results * Pathology Surgical (09/13/2024 8:10 AM [facility]) Case Report Surgical Pathology Report Case: [id number] Authorizing Provider: Alfonso Cornelius MD Collected: 09/13/2024 08:10 AM Ordering Location: [facility] Received: 09/13/2024 08:31 AM [facility] Gi Lab Main Pathologist: Roxy Loredo MD PhD Specimens: A) - Stomach, GASTRIC BIOPSIES B) - GE Junction, GE JUNCTION BIOPSIES RULE OUT MEDEIROS'S ESOPHAGUS 09/14/2024 10:32 AM [facility] FINAL DIAGNOSIS A. Stomach, gastric biopsy: - Gastric mucosa with focal mild chronic inflammation - Negative for acute inflammation or H. pylori by H&E stain B. GE junction, rule out Medeiros's esophagus, biopsy: - Gastric mucosa with focal mild chronic inflammation - Negative for acute inflammation or H. pylori by H&E stain - Negative for intestinal metaplasia 09/14/2024 10:32 AM [facility] at [address] SURGICAL BRACE MAKER Pre-Operative Diagnosis GASTRO REFLUX 09/14/2024 10:32 AM [facility] Gross Description A. GASTRIC [...] hours, 33 minutes. KS/sb 09/14/2024 10:32 AM [facility] Microscopic Description Microscopic examination was performed which supports the final diagnosis. All control tissues stained appropriately. 09/14/2024 10:32 AM [facility] Tissue STOMACH STRUCTURE / Unknown 09/13/2024 8:10 AM SURGICAL BRACE MAKER 09/13/2024 8:31 AM SURGICAL BRACE MAKER Tissue specimen (specimen) CARDIOESOPHAGEAL JUNCTION STRUCTURE / Unknown 09/13/2024 8:13 AM SURGICAL BRACE MAKER 09/13/2024 8:31 AM SURGICAL BRACE MAKER us Alfonso Cornelius MD PATHOLOGY/CYTOLOGY ORDERABLES Fi nal Result [facility] [address] [place] [address] * GI LAB IMAGING - EGD (09/13/2024 7:08 AM SURGICAL BRACE MAKER) us Alfonso Cornelius MD IMG DIAGNOSTIC ORDERABLES Final Result from Last 3 Months Insurance MEDICARE [facility] Care Teams Radiosonde Operator Relationship Specialty Start Date End Date Saul Tesfaye MD [address] [facility] [address] [place] [address] PCP - General Internal Medicine 07/05/20 Helen Mullen APRN, INDUSTRIAL SWEEPER CLEANER [address] [place] [address] Nurse Practitioner Advanced Practice Nurse 08/22/24
--- OUTSIDE RECORDS SUMMARY | 2024-12-10 07:47 | XMS_ITS | Clinical Summary ---
Author Organization [facility] Address [address] [place] [address] Care Team Providers Care Strategic Planning Analyst Name Role Phone Saul Tesfaye MD Primary [...] exertion) 05/05/2024 Chest discomfort 05/05/2024 Atrial fibrillation 05/05/2024 Bradycardia 05/05/2024 Personal history of colonic [...] Migraine headache 03/14/2014 Pain of foot 10/14/2013 Surgical History Surgery Date Site/Laterality Comments COLONOSCOPY [...] on file Legal Sex Female 2:22 AM TESTING AND REGULATING CHIEF Gender Identity Not on file Sexual Orientation Not on file Obstetrics History Last Filed Vital Signs Vital Sign Reading Time Taken Comments Blood Pressure 126/78 09/05/2024 8:07 AM TESTING AND REGULATING CHIEF Pulse 84 09/05/2024 8:07 AM TESTING AND REGULATING CHIEF Temperature - - Respiratory Rate - - Oxygen Saturation 97% 09/05/2024 8:07 AM TESTING AND REGULATING CHIEF Inhaled Oxygen Concentration - - Weight 55.3 kg (122 lb) 09/05/2024 8:07 AM TESTING AND REGULATING CHIEF Height 160 cm (5' 3 ) 09/05/2024 8:07 AM TESTING AND REGULATING CHIEF Body Mass Index 21.61 09/05/2024 8:07 AM TESTING AND REGULATING CHIEF Plan of Treatment Health Maintenance Due Date [...] , 06/03/2023, Additional history exists Insurance MEDICARE [facility] MEDICARE [facility] FEDERAL Care Teams Strategic Planning Analyst Relationship Specialty Start Date End Date Saul Tesfaye MD [address] [facility] [address] [place] [address] PCP - General Internal Medicine 03/05/22
--- OUTSIDE RECORDS SUMMARY | 2024-12-10 07:47 | XMS_ITS | Referral Summary ---
Author Organization [facility] Address [address] [place] [address] Care Team Providers Care Sap Business Objects Consultant Name Role Phone Saul Tesfaye MD Primary [...] on file Legal Sex Female 2:22 AM TAX COMPLIANCE REPRESENTATIVE Gender Identity Not on file Sexual Orientation Not on file Last Filed Vital Signs Vital Sign Reading Time Taken Comments Blood Pressure 126/78 09/05/2024 8:07 AM TAX COMPLIANCE REPRESENTATIVE Pulse 84 09/05/2024 8:07 AM TAX COMPLIANCE REPRESENTATIVE Temperature - - Respiratory Rate - - Oxygen Saturation 97% 09/05/2024 8:07 AM TAX COMPLIANCE REPRESENTATIVE Inhaled Oxygen Concentration - - Weight 55.3 kg (122 lb) 09/05/2024 8:07 AM TAX COMPLIANCE REPRESENTATIVE Height 160 cm (5' 3 ) 09/05/2024 8:07 AM TAX COMPLIANCE REPRESENTATIVE Body Mass Index 21.61 09/05/2024 8:07 AM TAX COMPLIANCE REPRESENTATIVE Plan of Treatment Not on file Insurance MEDICARE [facility] MEDICARE [facility] Address: [address] [address] [place] [address] [facility] FEDERAL Care Teams Sap Business Objects Consultant Relationship Specialty Start Date End Date Saul Tesfaye MD [address] [facility] [address] [place] [address] PCP - General Internal Medicine 03/05/22
--- OUTSIDE RECORDS SUMMARY | 2024-12-10 07:47 | XMS_ITS | Encounter Summary ---
Author Organization [facility] Address [address] [place] [address] [place] [address] Phone Care Team Providers Care Lease Out Worker Name Role Phone Saul Tesfaye MD Primary Care Provider [phone] Helen Mullen APRN, OPERATION AGENT Unavailable Encounter Details Date Type Department Care Team (Latest Contact Info) Description 07/02/2020 [facility] Pre[facility]Pac[facility] II [address] [place] [id number] Allan Francis MD [address] [facility] [address] [place] [address] Pre-op chest exam (Primary Dx) Social History Tobacco Use Types Packs/Day Years Used Date Smoking Tobacco: Never Assessed Comments Unknown Sex and Gender Information Value Date Recorded Sex Assigned at Not on file Legal Sex Female 11:10 AM PERMASTONE MECHANIC Gender Identity Not on file Sexual Orientation Not on file COVID-19 Exposure Response Date Recorded In the last month, have you been in contact with someone who was confirmed or suspected to have Coronavirus / COVID-19? No / Unsure 07/05/2020 9:19 AM PERMASTONE MECHANIC documented as of this encounter Plan of Treatment Scheduled Orders Name Type Priority Associated Diagnoses Orde r Schedule SARS-COV-2 BY MOLECULAR Microbiology Routine Pre-op chest exam Expected: 07/13/2020, Expires: 08/01/2020 documented as of this encounter Visit Diagnoses Diagnosis Pre-op chest exam- Primary Pre-operative respiratory examination documented in this encounter Care Teams Lease Out Worker Relationship Specialty Start Date End Date Saul Tesfaye MD [address] [facility] [address] [place] [address] PCP - General Internal Medicine 07/05/20 Helen Mullen APRN, OPERATION AGENT [address] [place] [address] Nurse Practitioner Advanced Practice Nurse 08/22/24 documented as of this encounter
[2024-12-10 07:54] LABS: NT Pro B Type Natriuretic Pept 336 pg/mL (19.9-100); Troponin I < 0.012 ng/mL (0.000-0.034)
[2024-12-10 09:13] LABS: Add Urine Microscopic? NO; Appearance Urine Clear (Clear); Bilirubin Urine Negative (Negative); Blood Urine Negative (Negative); Color Urine Yellow (Yellow); Glucose Urine UA Negative (Negative); Ketones Urine Negative (Negative); Leukocyte Esterase Ur Negative LEU/UL (Negative); Nitrate Urine Negative (Negative); Protein Urine Negative (Negative); Specific Grav Ur 1.005 (1.001-1.035); Urobilinogen Urine 0.2 mg/dL (<2.0)
--- NOTE | 2024-12-10 10:11 | ED.GENADULT ---
HPI - General Adult General Chief complaint: Arrhythmia/Palpitations Stated complaint: heart issues Time Seen by Provider: 12/10/24 07:30 History of Present Illness HPI narrative: Patient is a 74-year-old female who presents emergency department with chief complaint of at times low heart rate. The patient states that over the last several days she has noticed that her heart rate drops down into the 40s by using her Apple watch patient states at times she does feel little short of breath but reports no chest pain denies syncope Related Data Home Medications ?Medication ?Instructions ?Recorded ?Confirmed ?Last Taken ?Type albuterol sulfate 90 mcg/actuation 1 puff inhalation Q4H PRN 02/06/22 09/28/24 Unknown History aerosol inhaler Shortness Of Breath tiotropium bromide 18 mcg capsule 1 cap inhalation DAILY 02/06/22 09/28/24 Unknown History with inhalation device (Spiriva with HandiHaler) zolmitriptan 5 mg tablet 5 mg PO ONCE 08/13/23 09/28/24 Unknown History fluticasone 500 mcg-salmeterol 50 1 inh inhalation Q12H 09/30/23 09/28/24 Unknown History mcg/dose blistr powdr for inhalation (Wixela Inhub) Allergies Allergy/AdvReac Type Severity Reaction Status Date / Time No Known Allergies Allergy Verified 12/10/24 07:17 Review of Systems Review of Systems: A 10 system review of systems was completed on the patient and is negative except for what is stated in the HPI. Nursing and ancillary documentation was reviewed. PMFSH Past Medical History Medical History Migraine COPD (chronic obstructive pulmonary disease) GERD (gastroesophageal reflux disease) Asthma Surgical History Surgical History History of appendectomy History of surgery on arm Family History Family History Mother Lung cancer Other Family history of malignant neoplasm Social History Social History Smoking packs per day: 2 Smoking cigarettes per day: 40.0 Years smoked: 20 Smoking pack-years: 40.00 Smoking status: Former smoker Tobacco type: cigarettes Second hand tobacco smoke exposure: Yes Smoking end date: 08/24/94 Additional smoking assessment comments: 2 PACKS A DAY FOR LAST 6-7 YEARS Alcohol intake: former Substance use: never Substance use type: does not use Living arrangements: with family Gender identity (if verbalized by the patient): Female Spiritual care concerns: No Exam Narrative: GENERAL: Well-appearing, well-nourished, and in no acute distress. HEAD: Normocephalic, atraumatic. EYES: PERRLA and EOMI. ENT: Nares clear, no rhinorrhea or epistaxis. Mucous membranes moist. NECK: Supple. CHEST: Clear to auscultation. No respiratory distress. HEART: Regular rate and rhythm. No murmur heard. Normal peripheral pulses. ABDOMEN: Soft, nontender, nondistended, normal active bowel sounds. EXTREMITIES: Normal range of motion. No edema. SKIN: Warm, dry, no rash. NEURO: No focal deficits. Alert and oriented x3. PSYCH: Normal mood and affect. Course Vital Signs Vital signs: Vital Signs Temperature 36.5 C 12/10/24 07:19 Pulse Rate 98 12/10/24 07:19 Respiratory Rate 18 12/10/24 07:19 Blood Pressure 170/86 H 12/10/24 07:19 Pulse Oximetry 99 12/10/24 07:19 Oxygen Delivery Room Air 12/10/24 07:19 Temperature 36.5 C 12/10/24 07:19 Pulse Rate 86 12/10/24 10:46 Respiratory Rate 21 H 12/10/24 10:46 Blood Pressure 130/85 12/10/24 10:46 Pulse Oximetry 98 12/10/24 10:46 Oxygen Delivery Room Air 12/10/24 07:28 Medical Decision Making [facility] Narrative Medical decision making narrative: Diagnosis is palpitations, dysrhythmia, electrolyte abnormality, ACS, pneumonia, CHF, Chest x-ray showed a possible pneumothorax this was then subsequently followed up with a CT of the chest that showed no evidence of pneumothorax. Laboratory studies were obtained on the patient showed a CBC that was within normal limits CMP showed a potassium 3.8 magnesium was 2.0 troponin was negative on initial presentation and 3 hours repeat Urinalysis showed no evidence UTI Initial EKG showed sinus rhythm with frequent PVCs resulting in ventricular bigeminy 3 hour EKG showed sinus rhythm with occasional PACs Vital Signs Vital Signs: Vital Signs Temperature 36.5 C 12/10/24 07:19 Pulse Rate 98 12/10/24 07:19 Respiratory Rate 18 12/10/24 07:19 Blood Pressure 170/86 H 12/10/24 07:19 Pulse Oximetry 99 12/10/24 07:19 Oxygen Delivery Room Air 12/10/24 07:19 Temperature 36.5 C 12/10/24 07:19 Pulse Rate 86 12/10/24 10:46 Respiratory Rate 21 H 12/10/24 10:46 Blood Pressure 130/85 12/10/24 10:46 Pulse Oximetry 98 12/10/24 10:46 Oxygen Delivery Room Air 12/10/24 07:28 Lab Data 12/10/24 07:25 12/10/24 07:25 Labs: Lab Results 12/10/24 12/10/24 12/10/24 Range/Units 07:25 09:06 10:49 WBC 9.2 (4.5-10.0) K/mm3 RBC 5.06 (4.2-5.4) M/mm3 Hgb 15.7 H (12.0-15.0) g/dL Hct 48.4 H (37.0-47.0) % MCV 95.7 (80-100) fl MCH 31.0 (26-34) pg MCHC 32.4 (32-36) g/dl RDW 13.0 (11.5-14.5) % Plt Count 196 (150-375) k/mm3 MPV 9.0 (7.4-10.4) fl Immature Gran % (Auto) 0.3 (0-0.5) % Neut % (Auto) 71.9 (45.5-73.1) % Lymph % (Auto) 12.8 L (18.3-44.2) % [place] % (Auto) 7.7 (2.6-8.5) % Eos % (Auto) 6.9 H (0-4.4) % Baso % (Auto) 0.4 (0.2-1.2) % Lymph # (Auto) 1.17 (0.9-3.2) K/mm3 [place] # (Auto) 0.7 H (0.1-0.6) K/mm3 Eos # (Auto) 0.6 H (0-0.3) K/mm3 Baso # (Auto) 0.0 (0.0-0.1) K/mm3 Abs Immat Gran (auto) 0.03 (0.00-0.031) K/mm3 Absolute Neuts (auto) 6.6 (1.3-6.7) K/mm3 Absolute Nucleated RBC 0.000 (0.0-0.012) K/mm3 Nucleated RBC % 0.0 (0.0-0.2) % PT 13.3 (11.1-14.7) Seconds INR 1.0 APTT 28.3 (22.3-36.8) Seconds Sodium 138 (137-145) mmol/L Potassium 3.8 (3.4-5.0) mmol/L Chloride 102 (98-107) mmol/L Carbon Dioxide 27 (22-30) mmol/L Anion Gap 9 (4-12) mmol/L BUN 17 (7-17) mg/dL Creatinine 0.99 (0.7-1.0) mg/dL Estim Creat Clear Calc 36 ml/min Estimated GFR 55 L (59 - ) Glucose 93 (65-110) mg/dL Calcium 9.5 (8.4-10.2) mg/dL Magnesium 2.0 (1.6-2.3) mg/dL Total Bilirubin 0.9 (0.2-1.3) mg/dL AST 41 H (14-36) U/L ALT 30 (6-35) U/L Alkaline Phosphatase 128 H (38-126) U/L Troponin I < 0.012 < 0.012 (0.000-0.034) ng/mL NT-Pro-B Natriuret Pep 336 H (19.9-100) pg/mL Total Protein 8.0 (6.3-8.2) g/dL Albumin 4.6 (3.5-5.1) g/dL Lipase 48 (23-300) U/L Urine Color Yellow (Yellow) Urine Appearance Clear (Clear) Urine pH 7.0 (5.0-9.0) Ur Specific [place] 1.005 (1.001-1.035) Urine Protein Negative (Negative) mg/dL Urine Glucose (UA) Negative (Negative) mg/dL Urine Ketones Negative (Negative) mg/dL Ur Blood (Man) Negative (Negative) Urine Nitrate Negative (Negative) Urine Bilirubin Negative (Negative) Urine Urobilinogen 0.2 (<2.0) mg/dL Leukocyte Esterase Rfl Negative (Negative) JACINTO/UL Discharge Plan Discharge Clinical Impression: Ventricular premature beats, Palpitations Patient Disposition: Home Condition: Stable Instructions: Antibiotic Form, Heart Palpitations (DC), Premature Ventricular Contractions (ED), Premature Atrial Contractions (ED) Additional Instructions: your rhythm strip did show that you have had some premature ventricular beats and premature atrial beats. It is recommended that you follow-up with your unionmelt operator Patient Language: Greek Prescriptions: No Action cephalexin 500 mg capsule 500 mg PO Q12H Qty: 14 0RF mupirocin [Centany] 2 % ointment 1 applic topical BID Qty: 22 1RF Spiriva with HandiHaler 18 mcg capsule, w/inhalation device 1 cap inhalation DAILY Rx Instructions: puncture 1 cap using device; one dose = 2 inhalations albuterol sulfate 90 mcg/actuation HFA aerosol inhaler 1 puff inhalation Q4H PRN (Reason: Shortness Of Breath) fluticasone propion-salmeterol [Wixela Inhub] 500-50 mcg/dose blister with device 1 inh inhalation Q12H zolmitriptan 5 mg tablet 5 mg PO ONCE Rx Instructions: may repeat once after at least 2 hrs; do not exceed 2 doses in 24 hrs Follow-up/Referrals: Brien,Saul Montez MD [Primary Care Provider] - Time of Disposition: 11:47
[2024-12-10 11:18] LABS: Troponin I < 0.012 ng/mL (0.000-0.034)
--- NOTE | 2024-12-10 11:20 | ECG_ITS ---
Test Date: 2024-12-10 11:28:34 Measurements Intervals [place] Rate: 84 P: 74 AL: 159 QRS: 3 QRSD: 92 T: 56 QT: 379 QTc: 449 Interpretive Statements SINUS RHYTHM WITH OCCASIONAL ECTOPIC PREMATURE COMPLEXES POSSIBLE LEFT ATRIAL ENLARGEMENT INCOMPLETE RIGHT BUNDLE BRANCH BLOCK BASELINE ARTIFACT- I, II, AVR, AVL BORDERLINE ECG Compared to ECG 12/10/2024 07:27:29 VENTRICULAR BIGEMINY NO LONGER PRESENT Electronically Signed On 12-10-2024 14:22:43 CDT by Charlie Linares D.O.
== END 2024-12-10 11:57 | disposition home or self-care (01) ==
PROVIDERS: Emergency Provider Emergency Medicine; PCP Internal Medicine
DX: I49.3 Ventricular premature depolarization (principal); R00.2 Palpitations; J44.9 Chronic obstructive pulmonary disease, unspecified; K21.9 Gastro-esophageal reflux disease without esophagitis; J45.909 Unspecified asthma, uncomplicated; Z87.891 Personal history of nicotine dependence
CPT/HCPCS: 36415; 71045; 71250; 80053; 81003; 83690; 83735; 83880; 84484; 85025; 85610; 85730; 93005; 99284

== ENCOUNTER 2024-12-29 07:39 | Outpatient (CLI) | payer MEDICARE, BC, SELFPAY ==
--- NOTE | ~2024-12-29 | CT_ITS ---
CT of the Abdomen: Indication: Liver disease Technique: 2.5 mm axial scans were obtained through the abdomen prior to and following intravenous a dministration of 100 cc of Omnipaque 350. Dose reduction technique was used on this scan by utilizing automated exposure control and iterative reconstruction technique. The dose-length product (DLP) was 286.42 mGy-cm. COMPARISON: 09/07/2023 Findings: Scans through the lung bases are unremarkable. There is a 1.9 cm left hepatic lobe lesion with avid discontinuous peripheral nodular enhancement on arterial phase images, with probable progressive fill in over time on venous phase images, most idalia tible with hemangioma. The spleen, pancreas, gallbladder, adrenals and kidneys are within normal limi ts. There are atherosclerotic calcifications of the aorta. No lymphadenopathy. Visualized bowel loops are unremarkable. No ascites. Impression: 1.9 cm left hepatic lobe hemangioma. Reviewed, dictated and finalized at [facility]. Impression: 1.9 cm left hepatic lobe hemangioma.
--- OUTSIDE RECORDS SUMMARY | 2024-12-29 07:42 | XMS_ITS | Data Portability ---
Author Organization [place] [facility], Main Office Address [address] [place] [address] Care Team Providers Care House Visitor Name Role Phone KALA TESFAYE Primary Care Provider KALA TESFAYE Referring Provider Assessment No assessment recorded. Plan of Treatment Reminders Order Date Submit Date Provider Last Modified By Organization Details Last Modified Time Details Appointments None recorded. Lab vitamin D, 25-hydroxy, total, serum 2024 025 [facility] - Outpatient Lab, [address] [place], [address], 5 11:43:24 lipid panel, serum [email or web address] [place] [address] - Outpatient Lab, [address] [place], [address], 5 11:44:57 CMP, serum or plasma 2024 025 [email or web address] [facility] - Outpatient Lab, [address] [place], [address], 5 11:44:58 CBC w/ auto diff 2024 025 [email or web address] [facility] - Outpatient Lab, [address] [place], [address], 5 11:43:23 lipid panel, serum 2023 024 ALEXIS [facility] Outpatient Lab, [address] [place], [address], 4 09:46:57 CMP, serum or plasma 2023 024 [facility] [address] [place], [address], 4 09:46:58 lipid panel, serum 2022 023 [email or web address] [facility] Outpatient Lab, [address] [place], [address], 3 17:42:08 CMP, serum or plasma 2022 023 [email or web address] [facility] Outpatient Lab, [address] [place], [address], 3 17:42:08 CBC w/ auto diff 2022 023 [facility] Outpatient Lab, [address] [place], [address], 3 17:42:08 Referral None recorded. Procedures None recorded. Surgeries None recorded. Imaging None recorded. Medication Orders rizatriptan 10 mg tablet 2024 025 [id number], [address] , [place], [place], [id number], 5 11:42:37 pantoprazol e 40 mg tablet,getachew yed release 2024 025 [facility] #[id number], [address] , [place], [place], [id number], 5 11:42:26 Patient TargetsNo targets recorded. Patient Instructions Encounter Date Encounter Id Patient Instructions Last Modified By Organization Details Last Modified Time 02/27/2023 [id number] dementia rating scale-2* [email or web address] Not available 02/27/2023 11:39:16 alcohol misuse* [email or web address] Not available 02/27/2023 11:39:16 depression screening* Not available 02/27/2023 11:39:16 multi-dimensiona l health assessment questionnaire* [email or web address] Not available 02/27/2023 11:39:16 Personalized Hea lt [...] I have no recommendations Depression Screening: Negative [email or web address] Not available 02/27/2023 11:32:25 Medicare wellnes s [...] Dr. Pierce for history of colon polyps Not available 02/27/2023 11:38:54 08/04/2023 [id number] GERD- history of colon polyps -senile osteoporosis [...] with voice recognition software. Occasional wrong-word or clgqo-k-pwxu substitutions may have occurred due to the inherent limitations of voice recognition software. Read the chart carefully and recognize, using context, where substitutions have occurred. Follow-up colonoscopy for colon polyp Upper endoscopy for family history of gastric cancer and intractable GERD [email or web address] Not available 08/04/2023 10:51:24 12/01/2023 [id number] Follow-up asthma , GERD as well as abdominal ventral hernia. All clinically stable at this time. Will check blood work consisting of CBC, CMP, lipid and follow-up in six months. Next Appt: 6 Months Approximate Date: 05/29/2024 Portions of the record may have been created with voice recognition software. Occasional wrong-word or ttaur-j-wige substitutions may have occurred due to the inherent limitations of voice recognition software. Read the chart carefully and recognize, using context, where substitutions have occurred. [email or web address] Not available 12/01/2023 11:36:01 05/31/2024 [id number] dementia rating scale-2* [email or web address] Not available 05/31/2024 11:46:06 alcohol misuse* [email or web address] Not available 05/31/2024 11:46:06 depression screening* Not available 05/31/2024 11:46:06 multi-dimensiona l health assessment questionnaire* Not available 05/31/2024 11:46:06 Personalized [facility] Plan and Screening Recommendations Advance Directives [...] I have no recommendations Depression Screening: Negative [email or web address] Not available 05/31/2024 11:35:24 [facility] stable. Follow-up for [...] with voice recognition software. Occasional wrong-word or olrgy-q-zjtb substitutions may have occurred due to the inherent limitations of voice recognition software. Read the chart carefully and recognize, using context, where substitutions have occurred. [email or web address] Not available 05/31/2024 11:45:38 11/29/2024 [id number] Follow-up asthma , GERD, ventral hernia migraine [...] with voice recognition software. Occasional wrong-word or bwfsh-v-myct substitutions may have occurred due to the inherent limitations of voice recognition software. Read the chart carefully and recognize, using context, where substitutions may have occurred. Created: Kala Tesfaye M.D. 11.29.2024 10:42 AM [email or web address] Not available 11/29/2024 11:42:17 Reason for Referral None Reported. Results Created Date Observation Date Name Description Value Unit Range Abnormal Flag Note LastModifiedBy Organization Detail LastModifiedTime 04/22/2004/23/2023 LIPID PANEL , STAND CHING cholesterol, total 194 mg/dL <200 normal Not Available [facility] [address] [address] [place], [address], 04/23/2023 03:49:13 04/22/2004/23/2023 LIPID PANEL , STAND CHING HDL cholesterol 83 mg/dL > or = 50 normal Not Available [facility] [address] [address] [place], [address], 04/23/2023 03:49:13 04/22/2004/23/2023 LIPID PANEL , STAND CHING triglyceride s 70 mg/dL <150 normal Not Available [facility] [address] [address] [place], [address], 04/23/2023 03:49:13 04/22/2004/23/2023 LIPID PANEL , STAND [...] Sandi nogueras. com/f aq/FA Q164) Not Available [facility] [address] [address], [place], [address], 04/23/2023 03:49:13 04/22/2004/23/2023 LIPID PANEL , STAND CHING chol/HDLC ratio 2.3 (calc ) <5.0 normal Not Available [address], [address], 04/23/2023 03:49:13 04/22/2004/23/2023 LIPID PANEL , STAND CHING non HDL cholesterol 111 mg/dL _(javier c) <130 normal For patie nts with diabe guerita plus 1 major ASCVD risk facto r, treat ing to a non-H DL-C goal of <100 mg/dL (LDL- C of <70 mg/dL ) is consi dered a thera peuti c optio n. Not Available [address], [address], 04/23/2023 03:49:13 04/22/2004/23/2023 COMPR EHENS EUGENIA METAB OLIC PANEL glucose 73 mg/dL 65-99 normal Fasti ng refer ence inter som Not Available [address] [address] [place], [address], 04/23/2023 03:49:14 04/22/2004/23/2023 COMPR EHENS EUGENIA METAB OLIC PANEL urea nitrogen (BUN) 18 mg/dL 7-25 normal Not Available [address], [address], 04/23/2023 03:49:14 04/22/2004/23/2023 COMPR EHENS EUGENIA METAB OLIC PANEL creatinine 1.00 mg/dL 0.60-1 .00 normal Not Available [facility] [address], [address], 04/23/2023 03:49:14 04/22/2004/23/2023 COMPR EHENS EUGENIA METAB OLIC PANEL eGFR 59 mL/mi n/1.7 3m2 > or = 60 low Not Available [facility] [address] [place], [address], 04/23/2023 03:49:14 04/22/20 23 04/23/2023 COMPR EHENS EUGENIA METAB OLIC PANEL BUN/creatini ne ratio SEE NOTE: (calc ) 6-22 Not Repor ngozi: BUN and Creat inine are withi n refer ence range . Not Available [address], [address], 04/23/2023 03:49:14 04/22/20 23 04/23/2023 COMPR EHENS EUGENIA METAB OLIC PANEL sodium 141 mmol/ L 135-14 6 normal Not Available [address], [address], 04/23/2023 03:49:14 04/22/20 23 04/23/2023 COMPR EHENS EUGENIA METAB OLIC PANEL potassium 4.3 mmol/ L 3.5-5. 3 normal Not Available [address], [address], 04/23/2023 03:49:14 04/22/20 23 04/23/2023 COMPR EHENS EUGENIA METAB OLIC PANEL chloride 105 mmol/ L 98-110 normal Not Available [address], [address], 04/23/2023 03:49:14 04/22/20 23 04/23/2023 COMPR EHENS EUGENIA METAB OLIC PANEL carbon dioxide 29 mmol/ L 20-32 normal Not Available [address], [address], 04/23/2023 03:49:14 04/22/20 23 04/23/2023 COMPR EHENS EUGENIA METAB OLIC PANEL calcium 9.5 mg/dL 8.6-10 .4 normal Not Available [address], [address], 04/23/2023 03:49:14 04/22/20 23 04/23/2023 COMPR EHENS EUGENIA METAB OLIC PANEL protein, total 7.0 g/dL 6.1-8. 1 normal Not Available [address], [address], 04/23/2023 03:49:14 04/22/20 23 04/23/2023 COMPR EHENS EUGENIA METAB OLIC PANEL albumin 4.3 g/dL 3.6-5. 1 normal Not Available [address], [address], 04/23/2023 03:49:14 04/22/20 23 04/23/2023 COMPR EHENS EUGENIA METAB OLIC PANEL globulin 2.7 g/dL_ (calc ) 1.9-3. 7 normal Not Available [address], [address], 04/23/2023 03:49:14 04/22/20 23 04/23/2023 COMPR EHENS EUGENIA METAB OLIC PANEL albumin/glob ulin ratio 1.6 (calc ) 1.0-2. 5 normal Not Available [address], [address], 04/23/2023 03:49:14 04/22/20 23 04/23/2023 COMPR EHENS EUGENIA METAB OLIC PANEL bilirubin, total 0.8 mg/dL 0.2-1. 2 normal Not Available [address], [address], 04/23/2023 03:49:14 04/22/20 23 04/23/2023 COMPR EHENS EUGENIA METAB OLIC PANEL alkaline phosphatase 92 U/L 37-153 normal Not Available [facility] [address], [address], 04/23/2023 03:49:14 04/22/20 23 04/23/2023 COMPR EHENS EUGENIA METAB OLIC PANEL AST 27 U/L 10-35 normal Not Available [address], [address], 04/23/2023 03:49:14 04/22/20 23 04/23/2023 COMPR EHENS EUGENIA METAB OLIC PANEL ALT 21 U/L 6-29 normal Not Available [address], [address], 04/23/2023 03:49:14 04/22/2004/23/2023 CBC (INCL UDES DIFF/ PLT) white blood cell count 6.4 thous and/u L 3.8-10 .8 normal Not Available [address], [address], 04/23/2023 03:49:15 04/22/2004/23/2023 CBC (INCL UDES DIFF/ PLT) red blood cell count 4.69 idania on/uL 3.80-5 .10 normal Not Available [address], [address], 04/23/2023 03:49:15 04/22/2004/23/2023 CBC (INCL UDES DIFF/ PLT) hemoglobin 15.0 g/dL 11.7-1 5.5 normal Not Available [address], [address], 04/23/2023 03:49:15 04/22/2004/23/2023 CBC (INCL UDES DIFF/ PLT) hematocrit 43.4 % 35.0-4 5.0 normal Not Available [address], [address], 04/23/2023 03:49:15 04/22/2004/23/2023 CBC (INCL UDES DIFF/ PLT) MCV 92.5 fL 80.0-1 00.0 normal Not Available [address], [address], 04/23/2023 03:49:15 04/22/2015 0404/23/2023 CBC (INCL UDES DIFF/ PLT) MCH 32.0 pg 27.0-3 3.0 normal Not Available [address], [address], 04/23/2023 03:49:15 04/22/2004/23/2023 CBC (INCL UDES DIFF/ PLT) MCHC 34.6 g/dL 32.0-3 6.0 normal Not Available [address], [address], 04/23/2023 03:49:15 04/22/2004/23/2023 CBC (INCL UDES DIFF/ PLT) RDW 12.6 % 11.0-1 5.0 normal Not Available [address], [address], 04/23/2023 03:49:15 04/22/2004/23/2023 CBC (INCL UDES DIFF/ PLT) platelet count 185 thous and/u L 140-40 0 normal Not Available [address], [address], 04/23/2023 03:49:15 04/22/2004/23/2023 CBC (INCL UDES DIFF/ PLT) MPV 9.9 fL 7.5-12 .5 normal Not Available [address], [address], 04/23/2023 03:49:15 04/22/2004/23/2023 CBC (INCL UDES DIFF/ PLT) absolute neutrophils 4198 cells /uL 1500-7 800 normal Not Available [address], [address], 04/23/2023 03:49:15 04/22/20 23 04/23/2023 CBC (INCL UDES DIFF/ PLT) absolute lymphocytes 1357 cells /uL 850-39 00 normal Not Available [facility] [address], [address], 04/23/2023 03:49:15 04/22/20 23 04/23/2023 CBC (INCL UDES DIFF/ PLT) absolute monocytes 538 cells /uL 200-95 0 normal Not Available [facility] [address], [address], 04/23/2023 03:49:15 04/22/20 23 04/23/2023 CBC (INCL UDES DIFF/ PLT) absolute eosinophils 256 cells /uL 15-500 normal Not Available [facility] [address], [address], 04/23/2023 03:49:15 04/22/20 23 04/23/2023 CBC (INCL UDES DIFF/ PLT) absolute basophils 51 cells /uL 0-200 normal Not Available [facility] [address], [address], 04/23/2023 03:49:15 04/22/20 23 04/23/2023 CBC (INCL UDES DIFF/ PLT) neutrophils 65.6 % normal Not Available [facility] [address], [address], 04/23/2023 03:49:15 04/22/20 23 04/23/2023 CBC (INCL UDES DIFF/ PLT) lymphocytes 21.2 % normal Not Available [address], [address], 04/23/2023 03:49:15 04/22/20 23 04/23/2023 CBC (INCL UDES DIFF/ PLT) monocytes 8.4 % normal Not Available [facility] [address], [address], 04/23/2023 03:49:15 04/22/20 23 04/23/2023 CBC (INCL UDES DIFF/ PLT) eosinophils 4.0 % normal Not Available [facility] [address], [address], 04/23/2023 03:49:15 04/22/2004/23/2023 CBC (INCL UDES DIFF/ PLT) basophils 0.8 % normal Not Available [facility] [address], [address], 04/23/2023 03:49:15 04/29/20 24 04/30/2024 LIPID PANEL , STAND CHING cholesterol, total 161 mg/dL <200 normal Not Available [facility] [address], [address], 04/30/2024 09:46:57 04/29/20 24 04/30/2024 LIPID PANEL , STAND CHING HDL cholesterol 79 mg/dL > or = 50 normal Not Available [address], [address], 04/30/2024 09:46:57 04/29/20 24 04/30/2024 LIPID PANEL , STAND CHING triglyceride s 58 mg/dL <150 normal Not Available [facility] [address], [address], 04/30/2024 09:46:57 04/29/20 24 04/30/2024 LIPID PANEL [...] 2061- 2068 (http ://ed ucati on.Qu estDi SitScapes. com/f aq/FA Q164) Not Available [address] [address] [place], [address], 04/30/2024 09:46:57 04/29/20 24 04/30/2024 LIPID PANEL , STAND CHING chol/HDLC ratio 2.0 (calc ) <5.0 normal Not Available [address], [address], 04/30/2024 09:46:57 04/29/20 24 04/30/2024 LIPID PANEL , STAND CHING non HDL cholesterol 82 mg/dL _(javier c) <130 normal For patie nts with diabe guerita plus 1 major ASCVD risk facto r, treat ing to a non-H DL-C goal of <100 mg/dL (LDL- C of <70 mg/dL ) is consi dered a thera peuti c optio n. Not Available [address], [address], 04/30/2024 09:46:57 04/29/20 24 04/30/2024 COMPR EHENS EUGENIA METAB OLIC PANEL glucose 72 mg/dL 65-99 normal Fasti ng refer ence inter som Not Available [address] [address] [place], [address], 04/30/2024 09:46:58 04/29/2004/30/2024 COMPR EHENS EUGENIA METAB OLIC PANEL urea nitrogen (BUN) 15 mg/dL 7-25 normal Not Available [address], [address], 04/30/2024 09:46:58 04/29/20 24 04/30/2024 COMPR EHENS EUGENIA METAB OLIC PANEL creatinine 0.98 mg/dL 0.60-1 .00 normal Not Available [address] [address] [place], [address], 04/30/2024 09:46:58 04/29/20 24 04/30/2024 COMPR EHENS EUGENIA METAB OLIC PANEL eGFR 61 mL/mi n/1.7 3m2 > or = 60 normal Not Available [address], [address], 04/30/2024 09:46:58 04/29/20 24 04/30/2024 COMPR EHENS EUGENIA METAB OLIC PANEL BUN/creatini ne ratio SEE NOTE: (calc ) 6-22 Not Repor ngozi: BUN and Creat inine are withi n refer ence range . Not Available [address], [address], 04/30/2024 09:46:58 04/29/20 24 04/30/2024 COMPR EHENS EUGENIA METAB OLIC PANEL sodium 140 mmol/ L 135-14 6 normal Not Available [address], [address], 04/30/2024 09:46:58 04/29/20 24 04/30/2024 COMPR EHENS EUGENIA METAB OLIC PANEL potassium 4.4 mmol/ L 3.5-5. 3 normal Not Available [address], [address], 04/30/2024 09:46:58 04/29/20 24 04/30/2024 COMPR EHENS EUGENIA METAB OLIC PANEL chloride 104 mmol/ L 98-110 normal Not Available [address], [address], 04/30/2024 09:46:58 04/29/20 24 04/30/2024 COMPR EHENS EUGENIA METAB OLIC PANEL carbon dioxide 30 mmol/ L 20-32 normal Not Available [address], [address], 04/30/2024 09:46:58 04/29/20 24 04/30/2024 COMPR EHENS EUGENIA METAB OLIC PANEL calcium 9.7 mg/dL 8.6-10 .4 normal Not Available [address], [address], 04/30/2024 09:46:58 04/29/20 24 04/30/2024 COMPR EHENS EUGENIA METAB OLIC PANEL protein, total 6.7 g/dL 6.1-8. 1 normal Not Available [address], [address], 04/30/2024 09:46:58 04/29/20 24 04/30/2024 COMPR EHENS EUGENIA METAB OLIC PANEL albumin 4.1 g/dL 3.6-5. 1 normal Not Available [address], [address], 04/30/2024 09:46:58 04/29/20 24 04/30/2024 COMPR EHENS EUGENIA METAB OLIC PANEL globulin 2.6 g/dL_ (calc ) 1.9-3. 7 normal Not Available [address], [address], 04/30/2024 09:46:58 04/29/2004/30/2024 COMPR EHENS EUGENIA METAB OLIC PANEL albumin/glob ulin ratio 1.6 (calc ) 1.0-2. 5 normal Not Available [address], [address], 04/30/2024 09:46:58 04/29/20 24 04/30/2024 COMPR EHENS EUGENIA METAB OLIC PANEL bilirubin, total 0.8 mg/dL 0.2-1. 2 normal Not Available [address], [address], 04/30/2024 09:46:58 04/29/20 24 04/30/2024 COMPR EHENS EUGENIA METAB OLIC PANEL alkaline phosphatase 133 U/L 37-153 normal Not Available [address], [address], 04/30/2024 09:46:58 04/29/20 24 04/30/2024 COMPR EHENS EUGENIA METAB OLIC PANEL AST 35 U/L 10-35 normal Not Available [facility] [address] [address] , [place], [address], 04/30/2024 09:46:58 04/29/20 24 04/30/2024 COMPR EHENS EUGENIA METAB OLIC PANEL ALT 30 U/L 6-29 high Not Available [facility] [address] [address] , [place], [address], 04/30/2024 09:46:58 09/07/19 24 09/07/2023 CT, abdom en + pelvi s, w/o contr ast No observ ation record ed. [address], [place], [address], 09/07/2023 15:58:17 02/03/20 24 02/03/2024 surjit r monit or No observ ation record ed. [address] [facility] [address], [place], [address], 02/03/2024 09:59:11 02/03/20 24 01/04/2024 mobil e cardi ac telem etry (PROC ) No observ ation record ed. [place] [address] Not Available 2023 17:26:44 04/14/20 24 04/08/2024 PFT, compl ete No observ ation record ed. [address], [place], [address], 04/14/2024 15:13:41 06/28/20 24 06/28/2024 DEXA, axial skele ton [facility] [address], [place] [address] Patien t Name: MIRELES, BROOKLYNNJOSHUA Access ion #: [id number] Sex: F : 1949 9 Dictat [...] fied by WHO criter ia. Page 1 [facility] [address] [facility] [address] [place] [id number] Patien t Name: SHEMAR MIRELES RY Access ion #: [id number] Sex: F : 1949 9 Dictat [...] sought Electr onical ly Signed by: Linda Galelgos at 2023 16:48: 30 PM Page 2 [email or web address] [facility] [address] [place], [address], 06/29/2024 09:55:12 06/28/20 24 06/28/2024 scree matt breas t kristen, bilat [facility] [address] [place] [address] Patien t Name: SHEMAR MIRELES Access ion #: [id number] Sex: F : 1949 9 Dictat ed By: Linda Gallegos Attend ing Physic feli: DEEPALI TESFAYE CE Orderi Physic feli: DEEPALI ETSFAYE CE Exam Date: 2023 14:46 PM Exam [...] also recomm ended. ASSESS MENT: Page 1 [facility] [address] [place] [address] Patien t Name: SHEMAR MIRELES Access ion #: [id number] Sex: F : 1949 9 Dictat ed By: Linda Gallegos Attend ing Physic feli: [facility] Physic feli: DEEPALI TESFAYE Exam Date: 2023 14:46 PM Exam Name: MG SCRN BREAST KRISTEN BILAT Admitt ing Diagno sis(es ): BIRADS : 2 - Benign Electr onical ly Signed by: Linda Gallegos at 2023 16:50: 19 PM Page 2 [email or web address] [facility] [address] [place], [address], 06/29/2024 09:55:37 12/11/19 25 12/10/2024 XR, chest No observ ation record ed. [email or web address] [address], [place], [address], 12/12/2024 15:40:49 12/11/19 25 12/10/2024 CT, chest , w/o contr ast No observ ation record ed. [address], [place], [address], 12/11/2024 10:24:06 Result Notes None recorded. Problems Name Problem SNOMED Code Status Onset Date Resolution Date Notes Provider Name and Address Organization Details Recorded Time Renewal of prescription Active 2021 Not Available [facility] 3 06:42:29 Serum creatinine above reference range 676396888 Active 2022 Not Available [facility] 3 06:42:29 Senile osteoporosis 61505679 Active 2021 Not Available [facility] 3 06:42:30 Asthma 412363732 Active Not Available [facility] 3 06:42:30 Anxiety disorder 420853794 Active Not Available [facility] 3 06:42:30 Migraine 82117725 Active Not Available [facility] 3 06:42:30 Osteoarthriti s 792823180 Active Not Available [facility] 3 06:42:30 Vertigo 586393270 Active 2021 Not Available [facility] 3 06:42:30 Allergic rhinitis 04579155 Active Not Available [facility] 3 06:42:30 Eye strain 22836072 Active 2017 Not Available [facility] 3 06:42:30 Polyp of colon 39914749 Active 2022 Kala Tesfaye MD [address], [place] [address], [place], [address] , [facility] [employer] [facility] 3 11:35:38 Vitamin D deficiency 16591828 Active 2022 Kala Tesfaye MD [address], [facility] [address], [place], [address] , [facility] [employer] [facility] 3 11:38:40 Nausea 157437764 Active 2022 Lilly villatoro, [facility] 3 16:30:34 Gastroesophag eal reflux disease 335114206 Active 2022 Kala Tesfaye MD [address] [facility], [facility] [address], [place], [address] , [place] [facility] 3 10:46:36 Hernia of anterior abdominal wall 362156231 Active 2022 Sindy Hughesson null, [place] [facility] 3 15:05:39 Hiatal hernia 30764360 Active 2022 Sindy Kiran null, [place] [facility] 3 15:14:16 Anxiety 90252939 Active 2023 Ratna Luciano CMA null, [place] [facility] 4 12:44:43 Bradycardia 99920865 Active 2023 Sindysilver Beck null, [place] [facility] 4 16:46:01 Near syncope 264280991 Active 2023 Sindy Beck null, [place] [facility] 4 16:46:10 Atrial fibrillation 23630104 Active 2023 Ratna Luciano CMA null, [place] [facility] 4 17:04:49 Osteopenia 826525197 Active 2023 Ratna Luciano CMA null, [place] [facility] 4 11:07:37 Gastroesophag eal reflux disease without esophagitis 230795632 Active 2023 Ratna Luciano CMA null, [place] [facility] 4 14:20:09 Lesion of liver 678675325 Active 2024 Ratna Luciano CMA null, [place] [facility] 5 15:23:48 Problem Notes None recorded. Procedures Surgical History Date Name Laterality Status Provider Name and Address Organization Details Recorded Time 4 Medicare Wellness CPT Code, subsequent completed SEVERO Nava Shav[facility] 05/31/2024 11:28:01 3 Medicare Wellness CPT Code, subsequent completed SEVERO Nava Sh[facility] 02/27/2023 11:26:14 Imaging Results Imaging Date Name Status LastModified by Organiz ation Details LastModified Time 09/07/2023 CT, abdomen + pelvis, w/o contrast completed [address] [facility] [address], [place], [address], 09/07/2023 15:58:17 02/03/2024 holter monitor completed [address] [facility] [address], [place], [address], 02/03/2024 09:59:11 01/04/2024 mobile cardiac telemetry (PROC) completed [place] [id number] Information not available 02/03/2024 17:26:44 04/08/2024 PFT, complete completed [address] [place] [address], [address], 04/14/2024 15:13:41 06/28/2024 DEXA, axial skeleton completed [address] (Imaging) [address] [place], [address], 06/29/2024 09:55:12 06/28/2024 screening breast kristen, bilat completed [address] (Imaging) [address] [place], [address], 06/29/2024 09:55:37 12/10/2024 [facility] [address], [address], 12/12/2024 15:40:49 12/10/2024 CT, chest, w/o contrast completed [address], [address], 12/11/2024 10:24:06 Procedure Notes None recorded. Medical Equipment None Reported. Medications Name Sig Start Date Stop Date Status Note LastModified by Organization Details LastModified Time Prescripti on - Prior Authorizat ion Request active BCBS DENIAL FOR [facility] ODT Not Available Not Available Not Available [...] Not Available rizatripta n 10 mg tablet TAKE 1 TABLET BY MOUTH EVERY DAY NEEDED active Not Available Not Available No [...] completed Not Available Not Available Not Available lorazepam 0.5 mg tablet TAKE 1 TABLET BY MOUTH THREE TIMES DAILY NEEDED DIRECTED active Not Available Not Available No t Available baclofen 10 mg tablet TAKE 1 TABLET BY MOUTH FOUR TIMES DAILY active Not Available Not Available No t Available cephalexin 500 mg capsule TAKE 1 CAPSULE BY MOUTH EVERY 12 HOURS 11/29 completed Not Available Not Available Not Available pantoprazo le 40 mg tablet,del ayed release TAKE 1 TABLET BY MOUTH EVERY DAY active Not Available Not Available [...] Not Available No t Available albuterol sulfate HFA 90 mcg/actuat ion [...] completed Not Available Not Available Not Available Eliquis 5 mg tablet TAKE 1 TABLET TWICE A DAY active Not Available Not Available No t Available Breo Ellipta 100 mcg-25 mcg/dose powder [...] Updated DateTime 3 160.02 cm 21.3 kg/m2 47080.0 8 g 78 /min 97 [degF] 97 % 97 % 120 mm[Hg] 84 mm[Hg] Lillyenoch Zuluaga [facility] [employer] [facility] 3 11:21:14 Date Recorded Pain severity - 0-10 verbal numeric rating [Score] - Reported Provider Name and Address Organization Details Last Updated DateTime 02/27/2023 0 Margarette Enrique RN [facility] [employer] [facility] 02/27/2023 11:26:28 Date Recorded Body height Body mass index (BMI) Body weight Heart rate Body temperature Oxygen saturation Oxygen saturation in Arterial blood by Pulse oximetry Systolic blood pressure Diastolic blood pressure Provider Name and Address Organization Details Last Updated DateTime 3 160.02 cm 21.6 kg/m2 59297.2 7 g 80 /min 97 [degF] 95 % 95 % 118 mm[Hg] 78 mm[Hg] Lillyenoch Zuluaga [facility] [employer] [facility] 3 10:35:22 Date Recorded Body height Body mass index (BMI) Body weight Oxygen saturation Oxygen saturation in Arterial blood by Pulse oximetry Systolic blood pressure Diastolic blood pressure Provider Name and Address Organization Details Last Updated DateTime 4 158.75 cm 21.2 kg/m2 25864.9 g 97 % 97 % 124 mm[Hg] 72 mm[Hg] Ratna Luciano CMA [facility] 4 11:16:56 Date Recorded Heart rate Provider Name an d Address Organization Details Last Updated DateTime 12/01/2023 55 /min Kala Tesfaye MD [address], [facility] [address], [place], [address], [facility] [employer] [facility] 12/01/2023 11:24:31 Date Recorded Body height Body mass index (BMI) Body weight Heart rate Body temperature Oxygen saturation Oxygen saturation in Arterial blood by Pulse oximetry Systolic blood pressure Diastolic blood pressure Provider Name and Address Organization Details Last Updated DateTime 4 160.02 cm 20.7 kg/m2 86276.3 1 g 80 /min 97 [degF] 97 % 97 % 124 mm[Hg] 62 mm[Hg] [facility] 4 11:13:39 Date Recorded Pain severity - 0-10 verbal numeric rating [Score] - Reported Provider Name and Address Organization Details Last Updated DateTime 05/31/2024 0 Margarette Enrique RN [facility] [employer] [facility] 05/31/2024 11:28:12 Date Recorded Body height Body mass index (BMI) Body weight Heart rate Body temperature Oxygen saturation Oxygen saturation in Arterial blood by Pulse oximetry Systolic blood pressure Diastolic blood pressure Provider Name and Address Organization Details Last Updated DateTime 5 160.02 cm 20.7 kg/m2 11476.3 1 g 84 /min 97 [degF] 94 % 94 % 118 mm[Hg] 60 mm[Hg] [facility] 5 11:22:22 Social History Question Answer Notes LastModified by Organizat ion Details LastModified Time Tobacco Smoking Status Former Smoker Not Available [employer] 10/22/2022 06:39:47 Do You Have An Advance Directive? Yes [email or web address] Information not available 05/31/2024 What Is Your Level Of Alcohol Consumption? None [email or web address] Information not available 05/31/2024 Are You Blind Or Do You Have Difficulty Seeing? No MIGRATION.13319 [id number] Information not available 10/22/2022 In The 14 Days Before Symptom Onset, Have You Had Close Contact With A Laboratory-confi rmed COVID-19 While That Case Was Ill? No MIGRATION.22347 66709 Information not available 10/22/2022 In The 14 Days Before Symptom Onset, Have You Had Close Contact With A Person Who Is Under Investigation For COVID-19 While That Person Was Ill? No MIGRATION.27305 53962 Information not available 10/22/2022 Are You Deaf Or Do You Have Serious Difficulty Hearing? No MIGRATION.72683 44832 Information not available 10/22/2022 What Type Of Diet Are You Following? REGULAR MIGRATION.14919 28657 Information not available 10/22/2022 Have There Been Any Changes To Your Family Or Social Situation? No MIGRATION.61474 11675 Information not available 10/22/2022 What Is The Fluoride Status Of Your Home? Unknown MIGRATION.94390 06387 Information not available 10/22/2022 When Did You Quit Smoking? 16+yearssincelastc igarette MIGRATION.70506 00498 Information not available 10/22/2022 Are There Any Guns Present In Your Home? No MIGRATION.46615 84851 Information not available 10/22/2022 Do You Use Insect Repellent Routinely? No MIGRATION.06508 12466 Information not available 10/22/2022 Where Do You Live? [facility] MIGRATION.88188 56585 Information not available 10/22/2022 Guns Present In The Home? No [email or web address] Information not available 05/31/2024 Are You Able To Care For Yourself? Yes [email or web address] Information not available 05/31/2024 Are You Blind Or Do Yo Have Difficulty Seeing? No Information not available 05/31/2024 Are You Deaf Or Do You Have Serious Difficulty Hearing? No [email or web address] Information not available 05/31/2024 Live Alone Of With Others? Alone Information not available 05/31/2024 Do You Have A Medical Power Of Actuarial Manager? Yes [email or web address] Information not available 05/31/2024 What Was The Date Of Your Most Recent Tobacco Screening? 05/31/2024 [email or web address] Information not available 05/31/2024 Do You Have Any Pets? No MIGRATION.57896 92148 Information not available 10/22/2022 Do You Use Your Seat Belt Or Car Seat Routinely? Yes MIGRATION.03650 88685 Information not available 10/22/2022 Do You Have Smoke And Carbon Monoxide Detectors In Your Home? Yes MIGRATION.61523 92345 Information not available 10/22/2022 Are You Passively Exposed To Smoke? No MIGRATION.40010 86224 Information not available 10/22/2022 Are There Any Smokers In Your House? No MIGRATION.74412 01556 Information not available 10/22/2022 Do You Use Sunscreen Routinely? No MIGRATION.76934 47660 Information not available 10/22/2022 How Many Years Have You Smoked Tobacco? 30 MIGRATION.07679 25472 Information not available 10/22/2022 Have You Recently Traveled Abroad? No MIGRATION.94375 86635 Information not available 10/22/2022 Do You Have Any Dietary Restrictions? No MIGRATION.15574 12526 Information not available 10/22/2022 Sex: Unknown Functional Status Question Answer Note LastModified by Organizat ion Details LastModified Time Do you have difficulty walking or climbing stairs? No MIGRATION.8466425 026 Information not available 10/22/2022 Do you have transportation difficulties? No MIGRATION.7642330 026 Information not available 10/22/2022 Are you able to walk? YESWOREST MIGRATION.0499375 026 Information not available 10/22/2022 Do you have difficulty doing errands alone? No MIGRATION.5255777 026 Information not available 10/22/2022 Are you able to care for yourself? Yes MIGRATION.6499176 026 Information not available 10/22/2022 Do you have difficulty dressing or bathing? No MIGRATION.7420007 026 Information not available 10/22/2022 What is your exercise level? Moderate MIGRATION.0245204 026 Information not available 10/22/2022 Mental Status Question Answer Note LastModified by Organizat ion Details LastModified Time Do you have difficulty concentrating, remembering or making decisions? No MIGRATION.[id number] 6 Information not available 10/22/2022 Family History Relationship Description Onset Age of this Age Resolved Age Notes LastModified by Organization Details LastModified Time Father Family history of malignant neoplasm MIGRATION.369 [id number] Not available 10/22/2022 06:40:09 Mother Family history of malignant neoplasm MIGRATION.084 [id number] Not available 10/22/2022 06:40:09 Notes:Mother 64 yea [...] HAVE YOU BEEN HOSPITALIZED OR SEEN IN [facility] IN THE PAST YEAR ? N [...] Details Recorded Time Pneumococcal conjugate PCV20, polysaccharide OCY258 conjugate, adjuvant, PF 5 completed Lilly Slecka null, [facility] 11/30/2024 12:40:33 SARS-COV-2 (COVID-19) vaccine, UNSPECIFIED 3 completed Lilly Slecka null, [facility] 08/04/2023 10:35:58 influenza, unspecified formulation 3 completed Lilly Slecka null, [facility] 08/04/2023 10:36:14 SARS-COV-2 (COVID-19) vaccine, UNSPECIFIED 4 completed Lilly Slecka null, [facility] 05/31/2024 11:14:14 influenza, unspecified formulation 4 completed Lilly Slecka null, [facility] 05/31/2024 11:14:30 Respiratory syncytial virus (RSV) MAB, unspecified 4 completed Lilly Slecka null, [facility] 05/31/2024 11:15:16 SARS-COV-2 (COVID-19) vaccine, UNSPECIFIED 1 completed Not Available [facility] 10/22/2022 06:46:47 SARS-COV-2 (COVID-19) vaccine, UNSPECIFIED 1 completed Not Available [facility] 10/22/2022 06:46:47 COVID-19, mRNA, LNP-S, PF, 30 mcg/0.3 mL dose 1 completed Not Available [facility] 10/22/2022 06:46:47 Influenza, high-dose, quadrivalent, PF 1 completed Not Available [facility] 10/22/2022 06:46:48 Influenza, high-dose, quadrivalent, PF 0 completed Not Available [facility] 10/22/2022 06:46:48 Influenza, high-dose, trivalent, PF 8 completed Not Available [facility] 10/22/2022 06:46:48 Influenza, high-dose, trivalent, PF 7 completed Not Available [facility] 10/22/2022 06:46:48 Influenza, high-dose, trivalent, PF 6 completed Not Available [facility] 10/22/2022 06:46:48 pneumococcal polysaccharide PPV23 6 completed Not Available [facility] 10/22/2022 06:46:48 Pneumococcal conjugate PCV 13 4 completed Not Available [facility] 10/22/2022 06:46:49 Past Encounters Encounter ID Performer Location Encounter Start Date Encounter Closed Date Diagnosis/Indication Diagnosis SNOMED-CT Code Diagnosis ICD10 Code Diagnosis Note [id number] Kala Tesfaye MD [facility] Internal Med [facility] [place] [address] [facility] , [place] [address] 03/01/2021 00:00:00 03/01/2021 14:37:10 [id number] Gumaro Beasley MD [facility] [place] [address] [facility] [address] [place] [address] 04/10/2021 00:00:00 05/09/2021 10:30:51 [id number] Gumaro Beasley MD [facility] [place] [address] [place] [address] 04/17/2021 00:00:00 04/17/2021 10:24:30 [id number] Odilon Harmon MD [address] [address] 04/17/2021 00:00:00 04/17/2021 16:50:30 [id number] Odilon Harmon MD [facility] [place] [address] [place] [address] 04/30/2021 00:00:00 04/30/2021 12:55:26 [id number] Odilon Harmon MD [facility] [place] [address] [place] [address] 05/21/2021 00:00:00 05/21/2021 12:44:02 [id number] Odilon Harmon MD [facility] [place] [address] [place] [address] 06/04/2021 00:00:00 06/04/2021 09:42:36 [id number] Odilon Harmon MD [facility] [place] [address] [facility] [address] [place] [address] 08/06/2021 00:00:00 08/06/2021 09:43:21 [id number] Kala Tesfaye MD [facility] Internal Med [place] [address] , [place] [address] 10/01/2021 00:00:00 10/01/2021 15:10:40 [id number] Kala Tesfaye MD [facility] Internal [facility] [place] [address] [place] [address] y , [place] [address] 02/21/2022 00:00:00 02/21/2022 11:17:17 [id number] Kala Tesfaye MD [facility] Internal [facility] [place] [address] [place] [address] y , [place] [address] 08/29/2022 00:00:00 08/29/2022 10:57:58 [id number] Kala Tesfaye MD [facility] Internal [facility] [place] [address] [place] [address] y , [place] [address] 02/27/2023 11:12:37 02/27/2023 11:44:36 Adult health examination 825831323 Z00.00 Screening for disorder 163021658 Z13.9 Asthma 943823161 J45.90 9 Anxiety disorder 6567243 06 F41.9 Migraine 21690862 G43.90 9 Polyp of colon 07091174 K63.5 Screening for cardiovascular system disease 636192184 Z13.6 Vitamin D deficiency 347 80576 E55.9 [id number] Kala Tesfaye MD [facility] Internal Med [place] [address] [place] [address] y , [place] [address] 08/04/2023 10:29:23 08/04/2023 10:59:24 Polyp of colon 40682951 K63.5 Senile osteoporosis 1804 0001 M81.0 Asthma 999317957 J45.90 9 Gastroesop hageal reflux disease 967192457 K21.9 Migraine 55867559 G43.90 9 [id number] Kala Tesfaye MD [facility] Internal Med [place] [address] [facility] [address] , [place] [address] 12/01/2023 11:10:11 12/01/2023 11:41:57 Gastroesophageal reflux disease 475933859 K21.9 Asthma 775452488 J45.90 9 Hernia of anterior abdominal wall 078877209 K43.9 Screening for cardiovascular system disease 753807429 Z13.6 Bradycardia 09532347 R00 .1 Hyperlipidemia 63206694 E78.5 [id number] Kala Tesfaye MD [facility] Internal Med [place] [address] [facility] [address], [place] [address] 05/31/2024 11:08:32 05/31/2024 11:59:19 Adult health examination 412922004 Z00.00 Screening for disorder 188762694 Z13.9 Atrial fibrillation 4943 6004 I48.91 Anxiety disorder 3190809 06 F41.9 Gastroesop hageal reflux disease 824092600 K21.9 [id number] Kala Tesfaye MD [facility] Primary Care [facility] [address] [facility] [address] [place] [address] 11/29/2024 10:55:53 11/29/2024 11:52:24 Gastroesophageal reflux disease 977368073 K21.9 Hernia of anterior abdominal wall 883028306 K43.9 Asthma 986253987 J45.90 9 Migraine 48851479 G43.90 9 Screening for cardiovascular system disease 551442027 Z13.6 Vitamin D deficiency 347 99290 E55.9 Health Concerns Section Related Observation LastModified by Organization Detai ls LastModified Time None Recorded Concern Status LastModified by Organization Details LastModified Time None Recorded Advance Directives Directive Y: Payers Encounter Date Sequence Insurance Name Policy Number Policy Mead Covered Member ID Mead Member ID Guarantor Name 02/27/2023 1 [place] Suzy Mireles [id number] Suzy Mireles 02/27/2023 2 [place] 111 Suzy Mireles [id number] Suzy Mireles 08/04/2023 1 [place] Suzy Mireles [id number] Suzy Mireles 08/04/2023 2 [place] 111 Suzy Mireles [id number] Suzy Mckinleyuer 12/01/2023 1 [place] Suzy Mireles [id number] Suzy Mckinleyuer 12/01/2023 2 [place] 111 Suzy Mireles [id number] Suzy Mckinleyuer 05/31/2024 1 [place] Suzy Mckinleyuer [id number] Suzy Mckinleyuer 05/31/2024 2 [place] 111 Suzy Mireles [id number] Suzy Mckinleyuer 11/29/2024 1 [place] Suzy Mireles [id number] Suzy Mckinleyuer 11/29/2024 2 [place] (O) 111 Suzy Mireles [id number] Suzy Mireles Notes Date Note Type Note [...] Symptoms: none Medication Reconciliation: from medication list. Fnxlethrlve80/25/2022: Bone density scan and mammography performed on [...] As DirectedADRs List Reviewed 02/27/2023Lisinopril CoughVaccination and Vbhzpjcqmlyu5730-39 Ekkhcjcuv5289-24 Covid Booster Kdancd8851-83 Covid Oibpnb5341-00 Prevnar 650395-45 Pneumovax (high RiskSurgical HistoryBurns, Vaginal Hysterectomy, AppendectomyPreventative Testing Confirmed by Our Ofjlyvk3809/08/2022 ALBUMIN 4.4 G/DL03/17/2022 MAMMOGRAM / DEXA SCAN10/12/2015 [...] Ca of Stomach Kala Tesfaye MD [address] [facility], [facility] [address], [place], [address], [facility] [employer] 02/27/2023 11:39:20 3 text/htm l Patient Name: [...] As DirectedADRs List Reviewed 08/04/2023Lisinopril CoughVaccination and Dgkwyeocghpq2466-10 Fotjcilnf8744-93 Covid Booster Asescw4354-57 Covid Ipysvj8860-20 Prevnar 13 Cr4359-25 PneumovaxSurgical HistoryBurns, Vaginal Hysterectomy, AppendectomyPreventative Testing Confirmed by Our Sustqur8504/22/2023 ALBUMIN 4.3 G/DL N003/17/2022 MAMMOGRAM / DEXA [...] Ca of Stomach Kala Tesfaye MD [address] [facility], [facility] [address], [place], [address], [place] [facility] [place] [employer] [facility] 08/04/2023 10:51:43 4 text/htm l Patient [...] DirectedAdverse Drug Reactions ReviewedLisinopril Cough Vaccination and Rixmcmlpoxbq3261-25 Duevnbrbp8149-69 Covid Booster Nsiyuj0620-04 Covid Qarewa5470-65 Prevnar 13 Jx5715-96 Pneumovax Surgical Mgmhbmx5594-11 Xpwwf0741-90 Vaginal Sfqzvuwdwbzi1257-14 Appendectomy Preventative Qlspgwu1304/22/2023 ALBUMIN 4.3 G/DL N003/17/2022 MAMMOGRAM DEXA SCAN10/12/2015 COLONOSCOPY (5 YEARS) / OPHTHALMOLOGY [...] Ca of Stomach Kala Tesfaye MD [address], [address], [place] [facility] 12/01/2023 11:36:51 4 text/htm l Patient [...] specific medication. Rate control: controlled ventricular response [id number] Criteria: Age 65-74 and and considered low [...] 2024-05 COVID BOOSTER PFIZER(X) 2024-04 RSV Surgical Fvuuqmz3089-94 Orosv7625-46 Vaginal Hettvwctedqe5244-65 Appendectomy Preventative Testing( ) 04/29/2024 Albumin 4.1 [...] 0.60-1.00 MG/DLEGFR 61 > OR = 60 ML/MIN/1.41T4IHEDWGWQI, TOTAL 0.8 0.2-1.2 MG/DLALKALINE PHOSPHATASE 133 37-153 U/LAST 35 10-35 U/LALT 30 6-29 U/LLIPID PANEL, STANDARD Date: 4CHOLESTEROL, TOTAL 161 <200 MG/DLHDL CHOLESTEROL 79 > OR = 50 MG/DLTRIGLYCERIDES 58 <150 MG/DLLDL-CHOLESTEROL 69 MG/DL (CALC) Kala Tesfaye MD [address] [facility] [address], [place], [address], [place] [employer] 05/31/2024 11:46:10 5 text/htm l Patient Name: [...] 2020-10 COVID PFIZER( ) 2024-05 COVID BOOSTER PFIZER( ) 2024-04 RSV Surgical Dgrckba0921-52 Brpam4874-28 Vaginal Ilmjezckdivf9911-12 Appendectomy Preventative Testing( ) 06/28/2024 Mammogram 06/28/2026( [...] Ca of Stomach Kala Tesfaye MD [address] [facility], [facility] [address], [place], [address], [place] [facility] [employer] [facility] 11/29/2024 11:42:37 OBGyn Episode No OBEpisode recorded.
--- OUTSIDE RECORDS SUMMARY | 2024-12-29 07:42 | XMS_ITS | Encounter Summary ---
Author Organization [facility] Address [address] [place] [place] [address] Phone Care Team Providers Care Straight Truck Driver Name Role Phone Saul Tesfaye MD Primary Care Provider [phone] Helen Mullen APRN, ELECTRICAL SUBCONTRACTOR Unavailable Reason for Referral * Radiology Services (Routine) - Closed Specialty Diagnoses / Procedures Referred By Elsi hoover Referred To Contact Radiology Diagnoses Pre-op testing Procedures EKG 12 LEAD Sami Hill DO #1 [place] [address] Phone: tel: fax: Referral ID Status Reason Start Date Expiration Date Visits Re quested Visits Authorized [id number] Closed 07/04/2020 1 1 MILL ROVER Encounter Details Date Type Department Care Team (Late st Contact Info) Description 07/04/2020 Transcribe Orders [facility] Preop/Pacu II 1 [place] [id number] Sami Hill DO #[address] [place] [address] Pre-op testing (Primary Dx) Social History Tobacco Use Types Packs/Day Years Used Date Smoking Tobacco: Former Cigarettes Q uit: 1994 Smokeless Tobacco: Never Alcohol Use Standard Drinks/Week Comments Not Currently 0 (1 standard drink = 0.6 oz pur e alcohol) Comments Unknown Sex and Gender Information Value Date Recorded Sex Assigned at Not on file Legal Sex Female 11:10 AM WIRE MILL ROVER Gender Identity Not on file Sexual Orientation Not on file COVID-19 Exposure Response Date Recorded In the last month, have you been in contact with someone who was confirmed or suspected to have Coronavirus / COVID-19? No / Unsure 07/05/2020 9:19 AM WIRE MILL ROVER documented as of this encounter Plan of Treatment Not on file documented as of this encounter Results * EKG 12 LEAD (07/05/2020 10:02 AM WIRE MILL ROVER) Ventricular Rate BPM EXTERNAL EKG Atrial Rate BPM EXTERNAL EKG P-R Interval 142 ms EXTERNAL EKG QRS Duration 88 ms EXTERNAL EKG Q-T Duration 396 ms EXTERNAL EKG QTC CALCULATION 440 ms EXTERNAL EKG P [place] 85 degrees EXTERNAL EKG R [place] 87 degrees EXTERNAL EKG T [place] 81 degrees EXTERNAL EKG 07/05/2020 10:0 2 AM WIRE MILL ROVER Impressions EXTERNAL EKG - 07/05/2020 10:51 AM WIRE MILL ROVER Sinus rhythm Possible right atrial abnormality rSr'(V1) - probable normal variant Comparison Summary: No serial comparison made Summary: Borderline ECG Confirmed by Francie Stoll [id number] on 07/05/2020 10:51:23 AM Narrative Procedure Note Yuni Marmolejo MD - 07/05/2020 IMPRESSION: Sinus rhythm Possible right atrial abnormality rSr'(V1) - probable normal variant Comparison Summary: No serial comparison made Summary: Borderline ECG Confirmed by Francie Stoll [id number] on 07/05/2020 10:51:23 AM Sami Hill DO IMG ECG ORDERABLES Final Result EXTERNAL EKG * (ABNORMAL) HEMOGLOBIN & HEMATOCRIT (H&H) (07/05/2020 9:51 AM WIRE MILL ROVER) HEMOGLOBIN (HGB) 15.6 12.0 - 15.8 g/dL 07/05/2020 10:30 AM WIRE MILL ROVER [facility] HEMATOCRIT (HCT) 48.7(H) 36.0 - 47.0 % 07/05/2020 10:30 AM [facility] Blood Venipuncture / Unknown 07/05/2020 9:51 AM WIRE MILL ROVER 07/05/2020 10:26 AM WIRE MILL ROVER us Sami Hill DO HEMATOLOGY ORDERABL ES Final Result [facility] #1 [place] [address] * (ABNORMAL) BASIC METABOLIC PANEL W/ CALCIUM TOTAL (07/05/2020 9:51 AM WIRE MILL ROVER) SODIUM 141 136 - 144 mmol/L 07/05/2020 11:08 AM [facility] POTASSIUM 4.9 3.5 - 5.1 mmol/L 07/05/2020 11:08 AM [facility] CHLORIDE 103 100 - 110 mmol/L 07/05/2020 11:08 AM [facility] CO2, VENOUS 27 22 - 32 mmol/L 07/05/2020 11:08 AM [facility] ANION GAP 15.9 8.0 - 20.0 mmol/L 07/05/2020 11:08 AM [facility] GLUCOSE 84 70 - 99 mg/dL 07/05/2020 11:08 AM [facility] BUN 15 8 - 23 mg/dL 07/05/2020 11:08 AM [facility] CREATININE, BLOOD 0.98 0.60 - 1.10 mg/dL 07/05/2020 11:08 AM [facility] BUN/CREATININE RATIO 15 12 - 20 ratio 07/05/2020 11:08 AM [facility] CALCIUM 10.4(H) 8.9 - 10.3 mg/dL 07/05/2020 11:08 AM [facility] GFR, EST. NONAFRICAN 56(L) >=60 07/05/2020 11:08 AM [facility] GFR, EST. >60 >=60 07/05/2020 11:08 AM WIRE MILL ROVER [facility] Comment: Creatinine Clearance is the preferred criteria for selecting drug dose adjustments in renally impaired patients. The GFR is provided as additional pertinent clinical information. GFR is reported in mL/min/1.73 sq m. Blood Venipuncture / Unknown 07/05/2020 9:51 AM WIRE MILL ROVER 07/05/2020 10:26 AM WIRE MILL ROVER us Sami Hill DO CHEMISTRY ORDERABLE S Final Result [facility] [address] [place] [address] documented in this encounter Visit Diagnoses Diagnosis Pre-op testing- Primary Preoperative examination, unspecified Pre-op testing Preoperative examination, unspecified documented in this encounter Care Teams Straight Truck Driver Relationship Specialty Start Date End Date Saul Tesfaye MD [address] [place] [address] [address] [place] [address] PCP - General Internal Medicine 07/05/20 Helen Mullen APRN, ELECTRICAL SUBCONTRACTOR [address] [place] [address] Nurse Practitioner Advanced Practice Nurse 08/22/24 documented as of this encounter
--- OUTSIDE RECORDS SUMMARY | 2024-12-29 07:42 | XMS_ITS | CONTINUITY OF CARE DOCUMENT ---
Author Name maryann wolf Address Unknown Organization [facility] Address [id number] [place] [address] [address] [place] [address] Phone [phone] Care Team Providers Care Brewery Cellar Worker Name Role Phone Bret MARC, Faisal Unavailable FITO MARC, KALA Unavailable FITO MARC, KALA Unavailable INSURANCE PROVIDERS Payer name Policy type / Coverage type [place] red constitution party ID [facility] [id number] [place] Medicare [id number]
--- OUTSIDE RECORDS SUMMARY | 2024-12-29 07:42 | XMS_ITS | Encounter Summary ---
Author Organization [facility] Address [address] [place] [place] [address] Phone Care Team Providers Care Credit Collection Specialist Name Role Phone Saul Tesfaye MD Primary Care Provider [phone] Helen Mullen APRN, BUTTON DECORATING MACHINE OPERATOR Unavailable Encounter Details Date Type Department Care Team (Latest Contact Info) Description 07/02/2020 Transcribe Orders [facility] Preop/Pacu II 1 [place] [phone] Allan Francis MD [address] [facility] [address] [place] [address] Pre-op chest exam (Primary Dx) Social History Tobacco Use Types Packs/Day Years Used Date Smoking Tobacco: Never Assessed Comments Unknown Sex and Gender Information Value Date Recorded Sex Assigned at Not on file Legal Sex Female 11:10 AM CLINICAL REVIEW NURSE Gender Identity Not on file Sexual Orientation Not on file COVID-19 Exposure Response Date Recorded In the last month, have you been in contact with someone who was confirmed or suspected to have Coronavirus / COVID-19? No / Unsure 07/05/2020 9:19 AM CLINICAL REVIEW NURSE documented as of this encounter Plan of Treatment Scheduled Orders Name Type Priority Associated Diagnoses Orde r Schedule SARS-COV-2 BY MOLECULAR Microbiology Routine Pre-op chest exam Expected: 07/13/2020, Expires: 08/01/2020 documented as of this encounter Visit Diagnoses Diagnosis Pre-op chest exam- Primary Pre-operative respiratory examination documented in this encounter Care Teams Credit Collection Specialist Relationship Specialty Start Date End Date Saul Tesfaye MD [address] [facility] [address] [place] [address] PCP - General Internal Medicine 07/05/20 Helen Mullen APRN, BUTTON DECORATING MACHINE OPERATOR [address] [place] [address] Nurse Practitioner Advanced Practice Nurse 08/22/24 documented as of this encounter
--- OUTSIDE RECORDS SUMMARY | 2024-12-29 07:43 | XMS_ITS | Clinical Summary ---
Author Organization [facility] Address [address] [place] [address] Care Team Providers Care Hot Roll Inspector Name Role Phone Saul Tesfaye MD Primary Care Provider Allergies No known active allergies Medications Spiriva with HandiHaler 18 mcg per inhalation capsule Place 1 puff (1 capsule total) into inhaler and inhale daily 4 Active ZOLMitriptan (ZOMIG) 5 mg tablet Take 1 tablet (5 mg total) by mouth once as needed 3 Active fluticasone propion-salmetero L (ADVAIR DISKUS) 250-50 mcg/dose diskus inhaler Inhale 1 puff 2 (two) times a day Active ALPRAZolam (XANAX) 0.5 mg tablet Take 1 tablet (0.5 mg total) by mouth 3 (three) times a day as needed 4 Active apixaban (ELIQUIS) 5 mg tabletIndications :atrial fibrillation Take 1 tablet (5 mg total) by mouth 2 (two) times a day 180 tablet 3 5 12/22/19 26 Active aspirin 325 mg tabletIndications :Atrial fibrillation, unspecified type (HCC) Take 1 tablet (325 mg total) by mouth daily 4 12/22/19 25 Discontinu ed(Therapy completed) Active Problems Problem Noted Date Diagnosed Date [...] Encounters Date Type Department Care Team Description 12/21/2024 10:45 AM CDT Office Visit [facility] Cardiology at [address] [place] [address] Davey Lopez MD Paroxysmal atrial fibrillation (HCC) (Primary Dx); Pulmonary hypertension (HCC); PVC (premature ventricular contraction); Bradycardia 12/13/2024 9:00 AM CDT Ancillary Procedure [facility] Cardiology [address] [place] [address] Palpitations 12/13/2024 Telephone [facility] Cardiology [address] [place] [phone] Davey Lopez MD 12/12/2024 Telephone [facility] Cardiology [address] [place] [address] Davey Lopez MD from Last 3 Months Surgical History Surgery [...] on file Legal Sex Female 2:22 AM SUPPORT 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 Gender Identity Not on file Sexual Orientation Not on file Obstetrics History Last Filed Vital Signs Vital Sign Reading Time Taken Comments Blood Pressure 152/82 12/21/2024 10:47 AM CDT Pulse 54 12/21/2024 10:47 AM CDT Temperature - - Respiratory Rate - - Oxygen Saturation 94% 12/21/2024 10:47 AM CDT Inhaled Oxygen Concentration - - Weight 52.2 kg (115 lb) 12/21/2024 10:47 AM CDT Height 160 cm (5' 3 ) 12/21/2024 10:47 AM CDT Body Mass Index 20.37 12/21/2024 10:47 AM CDT Plan of Treatment Health Maintenance Due Date [...] , 06/03/2023, Additional history exists Insurance MEDICARE [facility] MEDICARE [facility] Care Teams Hot Roll Inspector Relationship Specialty Start Date End Date Saul Tesfaye MD [address] [facility] [address] [place] [address] PCP - General Internal Medicine 03/05/22
--- OUTSIDE RECORDS SUMMARY | 2024-12-29 07:43 | XMS_ITS | Continuity of Care Document ---
Author Organization [facility] Address [address] [place] [address] Phone Care Team Providers Care Manager Change Name Role Phone Burciaga OD, Rudy Unavailable Unavailable Advance Directives Directive Yes / No Effective Date File Name No Information Encounters Encounter Description Practice Location Reason(s) For Visit Diagnoses Date Provider Providers Copied on Encounter [facility], [address], [place], [place], [id number], [place] tel:[phone] [facility] No Information Jan- 5-200 0 Burciaga OD Rudy. [address] , [address], [place], [address], [place]. tel:[phone] Family History Family Member Type Diagnosis Age [...]
--- OUTSIDE RECORDS SUMMARY | 2024-12-29 07:43 | XMS_ITS | Clinical Summary ---
Author Organization [facility] Address [address] [place] [address] Phone Care Team Providers Care Color Blender Name Role Phone Saul Tesfaye MD Primary Care Provider [phone] Helen Mullen APRN, AUTOMOTIVE SERVICE ADVISOR Unavailable Allergies No known active allergies Medications [...] Active fluticasone (FLONASE) 50 MCG/ACT Suspension 1 [place] by Nasal route as needed. Use in each nostril as directed. 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 Gender Identity Not on file Sexual Orientation Not on file Last Filed Vital Signs Vital Sign Reading Time Taken Comments Blood Pressure 139/80 09/13/2024 8:46 AM WORKSITE WELLNESS PRACTITIONER Pulse 78 09/13/2024 8:46 AM WORKSITE WELLNESS PRACTITIONER Temperature 37 C (98.6 F) 09/13/2024 8:46 AM WORKSITE WELLNESS PRACTITIONER Respiratory Rate 18 09/13/2024 8:46 AM WORKSITE WELLNESS PRACTITIONER Oxygen Saturation 100% 09/13/2024 8:46 AM WORKSITE WELLNESS PRACTITIONER Inhaled Oxygen Concentration - - Weight 52.2 kg (115 lb) 09/07/2024 11:37 AM WORKSITE WELLNESS PRACTITIONER Height 160 cm (5' 3 ) 09/07/2024 11:37 AM WORKSITE WELLNESS PRACTITIONER Body Mass Index 20.37 09/07/2024 11:37 AM WORKSITE WELLNESS PRACTITIONER Plan of Treatment Health Maintenance Due Date [...] on patient's age to complete this topic Insurance MEDICARE [facility] Care Teams Color Blender Relationship Specialty Start Date End Date Saul Tesfaye MD [address] [facility] [address] [place] [address] PCP - General Internal Medicine 07/05/20 Helen Mullen APRN, AUTOMOTIVE SERVICE ADVISOR [address] [place] [address] Nurse Practitioner Advanced Practice Nurse 08/22/24
--- OUTSIDE RECORDS SUMMARY | 2024-12-29 07:43 | XMS_ITS | Referral Summary ---
Author Organization [facility] Address [address] [place] [address] Care Team Providers Care Photo Machine Operator Name Role Phone Saul Tesfaye MD Primary Care Provider Encounters Date Type Department Care Team Description 12/21/2024 10:45 AM CDT Office Visit [facility] Medical Group Cardiology at [address] [place] [address] Davey Lopez MD Paroxysmal atrial fibrillation (HCC) (Primary Dx); Pulmonary hypertension (HCC); PVC (premature ventricular contraction); Bradycardia 12/13/2024 Telephone [facility] Cardiology [address] [place] [address] [place] [phone] Davey Lopez MD 12/13/2024 9:00 AM CDT Ancillary Procedure [facility] Cardiology [address] [place] [address] [address] [place] [phone] Palpitations 12/12/2024 Telephone [facility] Cardiology [address] [place] [address] [place] [phone] Davey Lopez MD from Last 3 Months Allergies No known [...] on file Legal 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
== END 2024-12-29 07:40 | disposition home or self-care (01) ==
PROVIDERS: PCP Internal Medicine; Visit Provider Internal Medicine
DX: D18.03 Hemangioma of intra-abdominal structures (principal); K76.9 Liver disease, unspecified
CPT/HCPCS: 74170; Q9967

== ENCOUNTER 2025-02-01 11:22 | Outpatient (CLI) | payer MEDICARE, BC, SELFPAY ==
--- NOTE | ~2025-02-01 | US_ITS ---
EXAMINATION: US thyroid DATE: 02/01/2025 11:57 INDICATION: Nontoxic goiter TECHNIQUE: Multiple ultrasound images of the thyroid were obtained. COMPARISON: None. FINDINGS: The right thyroid lobe measures 5.3 x 2.9 x 2.4 cm. The left thyroid lobe measures 5.0 x 2.9 x 1.7 c m. There are multiple bilateral small thyroid nodules, the largest 1.1 cm nodule in the left thyroid lobe which is mixed solid and cystic, isoechoic with smooth margins and without echogenic foci (TI-R ADS 2, not suspicious, no FNA recommended). 9 mm solid round very hypoechoic nodule with a few echoge екатерина foci in the deep left thyroid lobe (TI-RADS 5, highly suspicious , FNA if >=1.0 cm, annual follow up is >0.5 cm). Millimeters predominantly solid hypoechoic nodule with and lobular margins and without echogenic foci , also TI RADS 5 additional more superficially in the mid right thyroid. There are also several benig n TI RADS 1 spongiform nodules in both thyroid lobes. IMPRESSION: 1. Multinodular goiter with no nodules meeting criteria for biopsy but with a couple 9 mm TI RADS 5 n odules for which annual ultrasound would be recommended. Reviewed, dictated and finalized at location A. IMPRESSION: 1. Multinodular goiter with no nodules meeting criteria for biopsy but with a c ouple 9 mm TI RADS 5 nodules for which annual ultrasound would be recommended.
--- OUTSIDE RECORDS SUMMARY | 2025-02-01 13:46 | XMS_ITS | Encounter Summary ---
Author Organization [facility] Address [address] [place] [address] Phone Care Team Providers Care Card Tender Name Role Phone Saul Tesfaye MD Primary Care Provider [phone] Helen Mullen APRN, BINGO ATTENDANT Unavailable Reason for Referral * Radiology Services (Routine) - Closed Specialty Diagnoses / Procedures Referred By Elsi hoover Referred To Contact Radiology Diagnoses Pre-op testing Procedures EKG 12 LEAD Sami Hill DO [address] [place] [address] Phone: tel: fax: Referral ID Status Reason Start Date Expiration Date Visits Re quested Visits Authorized [id number] Closed 07/04/2020 1 1 RIAL HAULER Encounter Details Date Type Department Care Team (Late st Contact Info) Description 07/04/2020 [facility] Preop/Pacu II 1 [place] [phone] Sami Hill DO [address] [place] [address] Pre-op testing (Primary Dx) Social History Tobacco Use Types Packs/Day Years Used Date Smoking Tobacco: Former Cigarettes Q uit: 1994 Smokeless Tobacco: Never Alcohol Use Standard Drinks/Week Comments Not Currently 0 (1 standard drink = 0.6 oz pur e alcohol) Comments Unknown Sex and Gender Information Value Date Recorded Sex Assigned at Not on file Legal Sex Female 11:10 AM MATERIAL HAULER Gender Identity Not on file Sexual Orientation Not on file COVID-19 Exposure Response Date Recorded In the last month, have you been in contact with someone who was confirmed or suspected to have Coronavirus / COVID-19? No / Unsure 07/05/2020 9:19 AM MATERIAL HAULER documented as of this encounter Plan of Treatment Not on file documented as of this encounter Results * EKG 12 LEAD (07/05/2020 10:02 AM MATERIAL HAULER) Ventricular Rate BPM EXTERNAL EKG Atrial Rate BPM EXTERNAL EKG P-R Interval 142 ms EXTERNAL EKG QRS Duration 88 ms EXTERNAL EKG Q-T Duration 396 ms EXTERNAL EKG QTC CALCULATION 440 ms EXTERNAL EKG P [place] 85 degrees EXTERNAL EKG R [place] 87 degrees EXTERNAL EKG T [place] 81 degrees EXTERNAL EKG 07/05/2020 10:0 2 AM MATERIAL HAULER Impressions EXTERNAL EKG - 07/05/2020 10:51 AM MATERIAL HAULER Sinus rhythm Possible right atrial abnormality rSr'(V1) - probable normal variant Comparison Summary: No serial comparison made Summary: Borderline ECG Confirmed by Francie Stoll [id number] on 07/05/2020 10:51:23 AM Narrative Procedure Note Yuni Marmolejo MD - 07/05/2020 IMPRESSION: Sinus rhythm Possible right atrial abnormality rSr'(V1) - probable normal variant Comparison Summary: No serial comparison made Summary: Borderline ECG Confirmed by Francie Stoll [id number] on 07/05/2020 10:51:23 AM aSmi Hill DO IMG ECG ORDERABLES Final Result EXTERNAL EKG * (ABNORMAL) HEMOGLOBIN & HEMATOCRIT (H&H) (07/05/2020 9:51 AM MATERIAL HAULER) HEMOGLOBIN (HGB) 15.6 12.0 - 15.8 g/dL 07/05/2020 10:30 AM MATERIAL HAULER [facility] HEMATOCRIT (HCT) 48.7(H) 36.0 - 47.0 % 07/05/2020 10:30 AM [facility] Blood Venipuncture / Unknown 07/05/2020 9:51 AM MATERIAL HAULER 07/05/2020 10:26 AM MATERIAL HAULER us Sami Hill DO HEMATOLOGY ORDERABL ES Final Result [facility] #[address] [place] [address] * (ABNORMAL) BASIC METABOLIC PANEL W/ CALCIUM TOTAL (07/05/2020 9:51 AM MATERIAL HAULER) SODIUM 141 136 - 144 mmol/L 07/05/2020 11:08 AM [facility] POTASSIUM 4.9 3.5 - 5.1 mmol/L 07/05/2020 11:08 AM [facility] CHLORIDE 103 100 - 110 mmol/L 07/05/2020 11:08 AM [facility] CO2, VENOUS 27 22 - 32 mmol/L 07/05/2020 11:08 AM [facility] ANION GAP 15.9 8.0 - 20.0 mmol/L 07/05/2020 11:08 AM [facility] GLUCOSE 84 70 - 99 mg/dL 07/05/2020 11:08 AM [facility] BUN 15 8 - 23 mg/dL 07/05/2020 11:08 AM [facility] CREATININE, BLOOD 0.98 0.60 - 1.10 mg/dL 07/05/2020 11:08 AM [facility] BUN/CREATININE RATIO 15 12 - 20 ratio 07/05/2020 11:08 AM [facility] CALCIUM 10.4(H) 8.9 - 10.3 mg/dL 07/05/2020 11:08 AM [facility] GFR, EST. NONAFRICAN 56(L) >=60 07/05/2020 11:08 AM [facility] GFR, EST. >60 >=60 07/05/2020 11:08 AM MATERIAL HAULER [facility] Comment: Creatinine Clearance is the preferred criteria for selecting drug dose adjustments in renally impaired patients. The GFR is provided as additional pertinent clinical information. GFR is reported in mL/min/1.73 sq m. Blood Venipuncture / Unknown 07/05/2020 9:51 AM MATERIAL HAULER 07/05/2020 10:26 AM MATERIAL HAULER us Sami Hill DO CHEMISTRY ORDERABLE S Final Result [facility] [address] [place] [address] documented in this encounter Visit Diagnoses Diagnosis Pre-op testing- Primary Preoperative examination, unspecified Pre-op testing Preoperative examination, unspecified documented in this encounter Care Teams Card Tender Relationship Specialty Start Date End Date Saul Tesfaye MD [address] [place] [address] [address] [place] [address] PCP - General Internal Medicine 07/05/20 Helen Mullen APRN, BINGO ATTENDANT [address] [place] [address] Nurse Practitioner Advanced Practice Nurse 08/22/24 documented as of this encounter
--- OUTSIDE RECORDS SUMMARY | 2025-02-01 13:46 | XMS_ITS | Encounter Summary ---
Author Organization [facility] Address [address] [place] [address] Phone Care Team Providers Care Solderer Name Role Phone Saul Tesfaye MD Primary Care Provider [phone] Helen Mullen APRN, COMMERCIAL LENDING RELATIONSHIP MANAGER Unavailable Encounter Details Date Type Department Care Team (Latest Contact Info) Description 07/02/2020 [facility]cribe [facility] 1 [place] [phone] Allan Francis MD [address] [facility] [address] [place], [place] [id number] Pre-op chest exam (Primary Dx) Social History Tobacco Use Types Packs/Day Years Used Date Smoking Tobacco: Never Assessed Comments Unknown Sex and Gender Information Value Date Recorded Sex Assigned at Not on file Legal Sex Female 11:10 AM 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 No / Unsure 07/05/2020 9:19 AM RADIOLOGIC TECHNOLOGY TEACHER documented as of this encounter Plan of Treatment Scheduled Orders Name Type Priority Associated Diagnoses Orde r Schedule SARS-COV-2 BY MOLECULAR Microbiology Routine Pre-op chest exam Expected: 07/13/2020, Expires: 08/01/2020 documented as of this encounter Visit Diagnoses Diagnosis Pre-op chest exam- Primary Pre-operative respiratory examination documented in this encounter Care Teams Solderer Relationship Specialty Start Date End Date Saul Tesfaye MD [address] [facility] 23 [place] [address] PCP - General Internal Medicine 07/05/20 Helen Mullen APRN, COMMERCIAL LENDING RELATIONSHIP MANAGER [address] [place] [address] Nurse Practitioner Advanced Practice Nurse 08/22/24 documented as of this encounter
--- OUTSIDE RECORDS SUMMARY | 2025-02-01 13:47 | XMS_ITS | Clinical Summary ---
Author Organization [facility] Address [address] [place] [address] Care Team Providers Care Microfilm Clerk Name Role Phone Saul Tesfaye MD Primary [...] 180 tablet 3 5 12/22/19 26 Active metoprolol tartrate (LOPRESSOR) 25 mg immediate release tablet Take 1 tablet (25 mg total) by mouth 2 (two) times a day 180 tablet 3 5 Active Active Problems Problem Noted Date Diagnosed [...] Encounters Date Type Department Care Team Description 01/17/2025 Telephone [facility] Cardiology at [address] [place] [phone] Davey Lopez MD 12/21/2024 10:45 AM CDT Office Visit [facility] Cardiology at [address] [place] [phone] Davey Lopez MD Paroxysmal atrial fibrillation (HCC) (Primary Dx); Pulmonary hypertension (HCC); PVC (premature ventricular contraction); Bradycardia 12/13/2024 9:00 AM CDT Ancillary Procedure [facility] Cardiology [address] [place] [phone] Palpitations 12/13/2024 Telephone [facility] Cardiology [address] [facility] [address] [place] [phone] Davey Lopez MD 12/12/2024 Telephone [facility] Cardiology [address] [facility] [address] [place] [phone] Davey Lopez MD from Last 3 Months Surgical History Surgery Date Site/Laterality Comments COLONOSCOPY 7 years ago APPENDECTOMY SKIN GRAFT Medical History Medical History Date Comments Asthma COPD (chronic obstructive pulmonary disease) (HC C) Family History Medical History Relation Name Comments Cancer Father Family history of malignant neoplasm - (Added by Conv) Stroke Maternal Grandmother Family history of [...] on file Legal Sex Female 2:22 AM IT LEAD Gender Identity Not on file Sexual Orientation [...] 10:47 AM CDT Height 160 cm (5' 3) 12/21/2024 10:47 AM CDT Body Mass Index [...] Completed 05/30/2024, , 06/03/2023, Additional history exists Procedures Procedure Name Priority Date/Time Associated Diagnosis Comments EXTENDED/ALF HOLTER PATCH (>48 HOURS UP TO 7 DAYS) Routine 12/13/2024 9:13 AM CDT Palpitations from Last 3 Months Results * Extended/Chcf Holter Patch (>48 hours up to 7 days) (12/13/2024 9:13 AM CDT) Anatomical Region Laterality Modality Electrocardiogra phy Narrative 01/02/2025 1:09 PM CDT AMBULATORY AIRPORT OPERATIONS OFFICER REPORT Patient Name: Suzy Mireles Date of : 1950 Requesting Physician: Dr. Lopez Date of interpretation: 01/02/25 Type of monitor : medium term 5 day Holter monitor report Date of the study/Enrollment period: 12/13/2024 through 12/18/2024 Indication: palpitations Quality of the study: good Interpretation: total of 4 days 18 hours and 26 minutes recorded time analyzed Underlying sinus rhythm heart rate variability between 48 and 162 beats per minute with an average heart rate of 80 beats per minute. There was 4% atrial fibrillation burden with average heart rate while in atrial fibrillation being 124 beats per minute. Total time in atrial fibrillation being 4 hours 36 minutes and 57 seconds. A total of 2 episodes were noted. Heart rate variability while in AFib between 77 and 162 beats per minute. Frequent ventricular ectopy totaling 23,155 beats which consisted of 23,068 isolated PVCs, 39 ventricular couplets and 3 short runs of nonsustained ventricular tachycardia which were 3 beats each. Ventricular bigeminy and ventricular trigeminy he has also seen Occasional supraventricular ectopy totaling 5219 beats which is 1% ectopic burden. Seven occurrences of PSVT were noted longest of which for 7 beats and the fastest of which was at a rate of 142 beats per minute. Sixty-two atrial couplets No heart block or pauses 1 patient triggered event not otherwise specified correlated to sinus rhythm and supraventricular ectopy. Heart rate 93 beats per minute Conclusions: Underlying sinus rhythm with average heart rate of 80 beats per minute. 2 Frequent ventricular ectopy including 3 short ventricular runs, occasional episodes of ventricular bigeminy and ventricular trigeminy. Rare ventricular couplets 3. Occasional supraventricular ectopy including several short atrial runs 4. Atrial fibrillation burden of 4% with average heart rate while in AFib uncontrolled at a rate of 124 beats per minute. Voice recognition software was used to complete this document, therefore, computer service technician variances may occur. Davey Lopez MD, [facility] 01/02/25 Davey Lopez MD [facility] Final Result from Last 3 Months Insurance MEDICARE [facility] MEDICARE [facility] Care Teams Microfilm Clerk Relationship Specialty Start Date End Date Saul Tesfaye MD [address] [facility] [address] [place] [address] PCP - General Internal Medicine 03/05/22
--- OUTSIDE RECORDS SUMMARY | 2025-02-01 13:47 | XMS_ITS | Continuity of Care Document ---
Author Organization [facility] Address [address] [place] [address] Phone Care Team Providers Care Information Security Specialist Name Role Phone Burciaga OD, Rudy Unavailable Unavailable Advance Directives Directive Yes / No Effective Date File Name No Information Encounters Encounter Description Practice Location Reason(s) For Visit Diagnoses Date Provider Providers Copied on Encounter [facility], [address], [place], [place], [id number], [place] tel:[phone] [facility] No Information Jan- 5-200 0 Burciaga OD Rudy. [address] , [address], [place], [address], [place]. tel:[phone] Family History Family Member Type Diagnosis Age [...]
--- OUTSIDE RECORDS SUMMARY | 2025-02-01 13:47 | XMS_ITS | Referral Summary ---
Author Organization [facility] Address [address] [place] [address] Care Team Providers Care Product Marketing Programs Manager Name Role Phone Saul Tesfaye MD Primary Care Provider Encounters Date Type Department Care Team Description 01/17/2025 Telephone [facility] Cardiology at [address] [place] [phone] Davey Lopez MD 12/21/2024 10:45 AM CDT Office Visit [facility] Cardiology at [address] [place] [phone] Davey Lopez MD Paroxysmal atrial fibrillation (HCC) (Primary Dx); Pulmonary hypertension (HCC); PVC (premature ventricular contraction); Bradycardia 12/13/2024 Telephone [facility] Cardiology [address] [place] [phone] Davey Lopez MD 12/13/2024 9:00 AM CDT Ancillary Procedure [facility] Cardiology [address] [place] [address] [place] [phone] Palpitations 12/12/2024 Telephone [facility] Cardiology [address] [place] [address] [place] [phone] Davey Lopez MD from Last 3 Months [...] on file Legal Sex Female 2:22 AM [employer] DEVELOPER Gender Identity Not on file Sexual Orientation [...] CDT Plan of Treatment Not on file Procedures Procedure Name Priority Date/Time Associated Diagnosis Comments EXTENDED/CUSTODIAL HOLTER PATCH (>48 HOURS UP TO 7 DAYS) Routine 12/13/2024 9:13 AM CDT Palpitations from Last 3 Months Results * Extended/Mcfp Holter Patch (>48 hours up to 7 days) (12/13/2024 9:13 AM CDT) Anatomical Region Laterality Modality Electrocardiogra phy Narrative 01/02/2025 1:09 PM CDT AMBULATORY GLOVE FORMER REPORT Patient Name: Suzy Mireles Date of [...] was used to complete this document, therefore, oil field rig builder variances may occur. Davey Lopez MD, [facility] 01/02/25 Davey Lopez MD [facility] Final Result from Last 3 Months Insurance [facility]ICARE [facility] Care Teams Product Marketing Programs Manager Relationship Specialty Start Date End Date Saul Tesfaye MD [address] [facility] [address] [place] [address] PCP - General Internal Medicine 03/05/22
--- OUTSIDE RECORDS SUMMARY | 2025-02-01 13:47 | XMS_ITS | Data Portability ---
Author Organization [place] [facility], Main Office Address [address] [place] [address] Care Team Providers Care Glove Turner And Former Automatic Name Role Phone KALA TESFAYE Primary Care Provider KALA TESFAYE Referring Provider Assessment No assessment recorded. Plan of Treatment Reminders Order Date Submit Date Provider Last Modified By Organization Details Last Modified Time Details Appointments None recorded. Lab vitamin D, 25-hydroxy, total, serum 2024 025 [email or web address] [facility], [address], [place], [address], 5 12:27:20 lipid panel, serum 2024 025 [email or web address] [facility], [address], [place], [address], 5 11:50:51 CMP, serum or plasma 2024 025 [facility], [address], [place], [address], 5 11:50:52 CBC w/ auto diff 2024 025 [email or web address] [facility], [address], [place], [address], 5 12:27:20 lipid panel, serum 2023 024 [facility], [address] [place] [address], [address], 4 09:46:57 CMP, serum or plasma 2023 024 [facility], [address] [place], [address], 4 09:46:58 lipid panel, serum 2022 023 [facility], [address] [place], [address], 3 17:42:08 CMP, serum or plasma 2022 023 [email or web address] [facility], [address] [place], [address], 3 17:42:08 CBC w/ auto diff [email or web address] [place] [address] Outpatient Lab, [address] [place], [address], 3 17:42:08 Referral None recorded. Procedures None recorded. Surgeries None recorded. Imaging None recorded. Medication Orders rizatriptan 10 mg tablet 2024 025 [facility], [address] , [place], [place], [id number], 5 11:42:37 pantoprazol e 40 mg tablet,getachew yed release 2024 025 [facility], [address] , [place], [place], [id number], 5 11:42:26 Patient TargetsNo targets recorded. Patient Instructions Encounter Date Encounter Id Patient Instructions Last Modified By Organization Details Last Modified Time 02/27/2023 [id number] dementia rating scale-2* [email or web address] Not available 02/27/2023 11:39:16 alcohol misuse* [email or web address] Not available 02/27/2023 11:39:16 depression screening* [email or web address] Not available 02/27/2023 11:39:16 multi-dimensiona l health assessment questionnaire* [email or web address] Not available 02/27/2023 11:39:16 Personalized a [facility] Plan and Screening Recommendations Advance Directives - [...] Physical activity: Need more exercise/physical activity Nutrition: Average Refer to attached handout Heart-Healthy Diet: After Your Visit Refer to attached handout DASH Diet: After Your Visit Recommend consultation with a pen tester Eat heart healthy diet Fall Risk (screened today): Low Vaccines Pneumococcal: No further needed Influenza: Your next one [...] mammogram: Your next mammogram: Ordered Recommended today Recommended today, but you have declined No screening necessary up to date Cervical/Uterine/Ov patt Cancer Screening: No screening necessary Osteoporosis Screening: Your next DEXA in: Ordered Recomme nded today Recommended today, but you have declined No screening necessary up to date Date Screening Last Performed: Colon Cancer Screening: Colonoscopy Recommended today, but you have declined Date Screening Last Performed: ___2016 Eye Disease Screening: Ordered Recommended today Recommended today, but you have declined No Eye exam necessary Your next exam in: goes every 2 yrs Dementia Risk: Low I have no recommendations Depression Screening: Negative Recommend additional evaluation and/or treatment as noted above Recommend follow appointment to further evaluate Recommend Behavioral Health referral Active diagnosis, Continue current treatment plan I have no recommendations [email or web address] Not available 02/27/2023 11:32:25 Medicare wellnes s evaluation risk assessment stable. Follow-up for asthma-anxiety -migraines -history of colon polyps. Does need another colonoscopy. Is up-to-date on other screening studies. Bili is doing well. Will continue on current medications check blood work consisting of CBC, CMP lipid and vitamin-D level. Continue on current Rx and follow-up in six months Needs a follow-up colonoscopy with Dr. Pierce for history of colon polyps [email or web address] Not available 02/27/2023 11:38:54 08/04/2023 [id number] GERD- history of colon polyps -senile osteoporosis [...] with voice recognition software. Occasional wrong-word or xsltq-t-wnaw substitutions may have occurred due to the inherent limitations of voice recognition software. Read the chart carefully and recognize, using context, where substitutions have occurred. Follow-up colonoscopy for colon polyp Upper endoscopy for family history of gastric cancer and intractable GERD [email or web address] Not available 08/04/2023 10:51:24 12/01/2023 [id number] Follow-up asthma , GERD as well as abdominal ventral hernia. All clinically stable at this time. Will check blood work consisting of CBC, CMP, lipid and follow-up in six months. Next Appt: 6 Months Approximate Date: 05/29/2024 Portions of the record may have been created with voice recognition software. Occasional wrong-word or qcxit-s-fbic substitutions may have occurred due to the inherent limitations of voice recognition software. Read the chart carefully and recognize, using context, where substitutions have occurred. [email or web address] Not available 12/01/2023 11:36:01 05/31/2024 [id number] dementia rating scale-2* [email or web address] Not available 05/31/2024 11:46:06 alcohol misuse* [email or web address] Not available 05/31/2024 11:46:06 depression screening* [email or web address] Not available 05/31/2024 11:46:06 multi-dimensiona l health assessment questionnaire* [email or web address] Not available 05/31/2024 11:46:06 Personalized Hea lth Plan and Screening Recommendations Advance Directives - [...] Physical activity: Need more exercise/physical activity Nutrition: Average Refer to attached handout Heart-Healthy Diet: After Your Visit Refer to attached handout DASH Diet: After Your Visit Recommend consultation with a pen tester Eat heart healthy diet Fall Risk (screened today): Low Vaccines Pneumococcal: Recommended today Influenza: Your next one in the fall of this year Chronic Disease Risks Stroke: Intermediate Risk Active diagnosis, Continue current treatment plan Heart Attack: Low risk I have no recommendations Clogging of the Arteries: Low risk I have no recommendations Diabetes: Low Risk I have no recommendations Secondary Prevention/Interven tion (detects treatable diseases before they may cause symptoms, disability, or ) Breast Cancer Screening with mammogram: Recommended today Cervical/Uterine/Ov patt Cancer Screening: No screening necessary Osteoporosis Screening: Recommended today Date Screening Last Performed: Colon Cancer Screening: Colonoscopy Recommended today, but you have declined Date Screening Last Performed: __2016___ Eye Disease Screening: Ordered Recommended today Recommended today, but you have declined No Eye exam necessary Your next exam in: goes every 2 yrs Dementia Risk: Low I have no recommendations Depression Screening: Negative Recommend additional evaluation and/or treatment as noted above Recommend follow appointment to further evaluate Recommend Behavioral Health referral Active diagnosis, Continue current treatment plan I have no recommendations [email or web address] Not available 05/31/2024 11:35:24 Medicare wellnes s [...] with voice recognition software. Occasional wrong-word or xfhoq-p-akds substitutions may have occurred due to the inherent limitations of voice recognition software. Read the chart carefully and recognize, using context, where substitutions have occurred. [email or web address] Not available 05/31/2024 11:45:38 11/29/2024 [id number] Follow-up asthma , GERD, ventral hernia migraine [...] with voice recognition software. Occasional wrong-word or vpjhb-w-dxqw substitutions may have occurred due to the inherent limitations of voice recognition software. Read the chart carefully and recognize, using context, where substitutions may have occurred. Created: Kala Tesfaye M.D. 11.29.2024 10:42 AM [email or web address] Not available 11/29/2024 11:42:17 Reason for Referral None Reported. Results Created Date Observation Date Name Description Value Unit Range Abnormal Flag Note LastModifiedBy Organization Detail LastModifiedTime 04/22/2004/23/2023 LIPID PANEL , STAND CHING cholesterol, total 194 mg/dL <200 normal Not Available [facility] [address] [place], [address], 04/23/2023 03:49:13 04/22/2004/23/2023 LIPID PANEL , STAND CHING HDL cholesterol 83 mg/dL > or = 50 normal Not Available [facility] [address] [place], [address], 04/23/2023 03:49:13 04/22/2004/23/2023 LIPID PANEL , STAND CHING triglyceride s 70 mg/dL <150 normal Not Available [facility] [address] [place], [address], 04/23/2023 03:49:13 04/22/2004/23/2023 LIPID PANEL , STAND CHING LDL-choleste rol 95 mg/dL _(javier c) normal Refer ence range : <100 Essie able range <100 mg/dL for prima ry preve ntion ; <70 mg/dL for patie nts with CHD or diabe tic patie nts with > or = 2 CHD risk facto rs. LDL-C is now calcu lated using the [facility]bie n[facility] kins alejandrina more, which is a valid ated novel memo garcia than the Fried lambert grossat ion in the estim ation of LDL-C . Abbie more SS et al. JANE. 2013; 310(1 9): 2061- 2068 (http ://ed ucati on.Qu estDi [employer]. com/f aq/FA Q164) Not Available [place] [address] [place], [address], 04/23/2023 03:49:13 04/22/2004/23/2023 LIPID PANEL , STAND CHING chol/HDLC ratio 2.3 (calc ) <5.0 normal Not Available [address], [address], 04/23/2023 03:49:13 04/22/2004/23/2023 LIPID PANEL , STAND CHING non HDL cholesterol 111 mg/dL _(javier c) <130 normal For patie nts with diabe guerita plus 1 major ASCVD risk facto r, treat ing to a non-H DL-C goal of <100 mg/dL (LDL- C of <70 mg/dL ) is consi low a sina robertso n. Not Available [place] [address] [facility] [place], [address], 04/23/2023 03:49:13 04/22/2004/23/2023 COMPR EHENS EUGENIA METAB OLIC PANEL glucose 73 mg/dL 65-99 normal Fasti ng refer ence inter som Not Available [facility] [place] [address] [place], [address], 04/23/2023 03:49:14 04/22/20 23 04/23/2023 COMPR EHENS EUGENIA METAB OLIC PANEL urea nitrogen (BUN) 18 mg/dL 7-25 normal Not Available [address], [address], 04/23/2023 03:49:14 04/22/2004/23/2023 COMPR EHENS EUGENIA METAB OLIC PANEL creatinine 1.00 mg/dL 0.60-1 .00 normal Not Available [address], [address], 04/23/2023 03:49:14 04/22/20 23 04/23/2023 COMPR EHENS EUGENIA METAB OLIC PANEL eGFR 59 mL/mi n/1.7 3m2 > or = 60 low Not Available [address], [address], 04/23/2023 03:49:14 04/22/20 23 04/23/2023 COMPR EHENS EUGENIA METAB OLIC PANEL BUN/creatini ne ratio SEE NOTE: (calc ) 6-22 Not Repor ngozi: BUN and Creat inine are withi n refer ence range . Not Available [address], [address], 04/23/2023 03:49:14 04/22/2004/23/2023 COMPR EHENS EUGENIA METAB OLIC PANEL sodium 141 mmol/ L 135-14 6 normal Not Available [address], [address], 04/23/2023 03:49:14 04/22/20 23 04/23/2023 COMPR EHENS EUGENIA METAB OLIC PANEL potassium 4.3 mmol/ L 3.5-5. 3 normal Not Available [address], [address], 04/23/2023 03:49:14 04/22/2004/23/2023 COMPR EHENS EUGENIA METAB OLIC PANEL chloride 105 mmol/ L 98-110 normal Not Available [address], [address], 04/23/2023 03:49:14 04/22/20 23 04/23/2023 COMPR EHENS EUGENIA METAB OLIC PANEL carbon dioxide 29 mmol/ L 20-32 normal Not Available [address], [address], 04/23/2023 03:49:14 04/22/20 23 04/23/2023 COMPR EHENS EUGENIA METAB OLIC PANEL calcium 9.5 mg/dL 8.6-10 .4 normal Not Available [address], [address], 04/23/2023 03:49:14 04/22/20 23 04/23/2023 COMPR EHENS EUGENIA METAB OLIC PANEL protein, total 7.0 g/dL 6.1-8. 1 normal Not Available [address], [address], 04/23/2023 03:49:14 04/22/20 23 04/23/2023 COMPR EHENS EUGENIA METAB OLIC PANEL albumin 4.3 g/dL 3.6-5. 1 normal Not Available [address], [address], 04/23/2023 03:49:14 04/22/20 23 04/23/2023 COMPR EHENS EUGENIA METAB OLIC PANEL globulin 2.7 g/dL_ (calc ) 1.9-3. 7 normal Not Available [address], [address], 04/23/2023 03:49:14 04/22/20 23 04/23/2023 COMPR EHENS EUGENIA METAB OLIC PANEL albumin/glob ulin ratio 1.6 (calc ) 1.0-2. 5 normal Not Available [address], [address], 04/23/2023 03:49:14 04/22/20 04/23/2023 COMPR EHENS EUGENIA METAB OLIC PANEL bilirubin, total 0.8 mg/dL 0.2-1. 2 normal Not Available [address], [address], 04/23/2023 03:49:14 04/22/2004/23/2023 COMPR EHENS EUGENIA METAB OLIC PANEL alkaline phosphatase 92 U/L 37-153 normal Not Available [facility] [address], [address], 04/23/2023 03:49:14 04/22/2004/23/2023 COMPR EHENS EUGENIA METAB OLIC PANEL AST 27 U/L 10-35 normal Not Available [address], [address], 04/23/2023 03:49:14 04/22/2004/23/2023 COMPR EHENS EUGENIA METAB OLIC PANEL ALT 21 U/L 6-29 normal Not Available [address], [address], 04/23/2023 03:49:14 04/22/2004/23/2023 CBC (INCL UDES DIFF/ PLT) white blood cell count 6.4 thous and/u L 3.8-10 .8 normal Not Available [address], [address], 04/23/2023 03:49:15 04/22/2004/23/2023 CBC (INCL UDES DIFF/ PLT) red blood cell count 4.69 idania on/uL 3.80-5 .10 normal Not Available [address], [address], 04/23/2023 03:49:15 04/22/20 23 04/23/2023 CBC (INCL UDES DIFF/ PLT) hemoglobin 15.0 g/dL 11.7-1 5.5 normal Not Available [facility] [address], [address], 04/23/2023 03:49:15 04/22/2004/23/2023 CBC (INCL UDES DIFF/ PLT) hematocrit 43.4 % 35.0-4 5.0 normal Not Available [facility] [address], [address], 04/23/2023 03:49:15 04/22/2004/23/2023 CBC (INCL UDES DIFF/ PLT) MCV 92.5 fL 80.0-1 00.0 normal Not Available [facility] [address], [address], 04/23/2023 03:49:15 04/22/2004/23/2023 CBC (INCL UDES DIFF/ PLT) MCH 32.0 pg 27.0-3 3.0 normal Not Available [address], [address], 04/23/2023 03:49:15 04/22/2004/23/2023 CBC (INCL UDES DIFF/ PLT) MCHC 34.6 g/dL 32.0-3 6.0 normal Not Available [address], [address], 04/23/2023 03:49:15 04/22/2004/23/2023 CBC (INCL UDES DIFF/ PLT) RDW 12.6 % 11.0-1 5.0 normal Not Available [facility] [address], [address], 04/23/2023 03:49:15 04/22/2004/23/2023 CBC (INCL UDES DIFF/ PLT) platelet count 185 thous and/u L 140-40 0 normal Not Available [facility] [address], [address], 04/23/2023 03:49:15 04/22/2015 0404/23/2023 CBC (INCL UDES DIFF/ PLT) MPV 9.9 fL 7.5-12 .5 normal Not Available [address], [address], 04/23/2023 03:49:15 04/22/20 23 04/23/2023 CBC (INCL UDES DIFF/ PLT) absolute neutrophils 4198 cells /uL 1500-7 800 normal Not Available [address], [address], 04/23/2023 03:49:15 04/22/2004/23/2023 CBC (INCL UDES DIFF/ PLT) absolute lymphocytes 1357 cells /uL 850-39 00 normal Not Available [address], [address], 04/23/2023 03:49:15 04/22/2004/23/2023 CBC (INCL UDES DIFF/ PLT) absolute monocytes 538 cells /uL 200-95 0 normal Not Available [address], [address], 04/23/2023 03:49:15 04/22/20 23 04/23/2023 CBC (INCL UDES DIFF/ PLT) absolute eosinophils 256 cells /uL 15-500 normal Not Available [address], [address], 04/23/2023 03:49:15 04/22/2004/23/2023 CBC (INCL UDES DIFF/ PLT) absolute basophils 51 cells /uL 0-200 normal Not Available [facility] [address], [address], 04/23/2023 03:49:15 04/22/2004/23/2023 CBC (INCL UDES DIFF/ PLT) neutrophils 65.6 % normal Not Available [address], [address], 04/23/2023 03:49:15 04/22/20 23 04/23/2023 CBC (INCL UDES DIFF/ PLT) lymphocytes 21.2 % normal Not Available [address], [address], 04/23/2023 03:49:15 04/22/20 23 04/23/2023 CBC (INCL UDES DIFF/ PLT) monocytes 8.4 % normal Not Available [address], [address], 04/23/2023 03:49:15 04/22/20 23 04/23/2023 CBC (INCL UDES DIFF/ PLT) eosinophils 4.0 % normal Not Available [address], [address], 04/23/2023 03:49:15 04/22/20 23 04/23/2023 CBC (INCL UDES DIFF/ PLT) basophils 0.8 % normal Not Available [address], [address], 04/23/2023 03:49:15 04/29/20 24 04/30/2024 LIPID PANEL , STAND CHING cholesterol, total 161 mg/dL <200 normal Not Available [address], [address], 04/30/2024 09:46:57 04/29/20 24 04/30/2024 LIPID PANEL , STAND CHING HDL cholesterol 79 mg/dL > or = 50 normal Not Available [address], [address], 04/30/2024 09:46:57 04/29/20 24 04/30/2024 LIPID PANEL , STAND CHING triglyceride s 58 mg/dL <150 normal Not Available [address], [address], 04/30/2024 09:46:57 04/29/2004/30/2024 LIPID PANEL , STAND CHING LDL-choleste rol [...] n, which is a valid ated novel metho d provi ding krystle r accur acy than the Fried lambert equat ion in the estim ation of LDL-C . Abbie more SS et al. JANE. 2013; 310(1 9): 2061- 2068 (http ://ed ucati on.[employer]. Arm[employer]/f aq/FA Q164) Not Available [address], [address], 04/30/2024 09:46:57 04/29/20 24 04/30/2024 LIPID PANEL , STAND CHING chol/HDLC ratio 2.0 (calc ) <5.0 normal Not Available [address], [address], 04/30/2024 09:46:57 04/29/2004/30/2024 LIPID PANEL , STAND CHING non HDL cholesterol 82 mg/dL _(javier c) <130 normal For patie nts with diabe guerita plus 1 major ASCVD risk facto r, treat ing to a non-H DL-C goal of <100 mg/dL (LDL- C of <70 mg/dL ) is consi dered a thera peuti c optio n. Not Available [address], [address], 04/30/2024 09:46:57 04/29/20 24 04/30/2024 COMPR EHENS EUGENIA METAB OLIC PANEL glucose 72 mg/dL 65-99 normal Fasti ng refer ence inter som Not Available [facility] [address] [place], [address], 04/30/2024 09:46:58 04/29/2004/30/2024 COMPR EHENS EUGENIA METAB OLIC PANEL urea nitrogen (BUN) 15 mg/dL 7-25 normal Not Available [address], [address], 04/30/2024 09:46:58 04/29/20 24 04/30/2024 COMPR EHENS EUGENIA METAB OLIC PANEL creatinine 0.98 mg/dL 0.60-1 .00 normal Not Available [facility] [address], [address], 04/30/2024 09:46:58 04/29/2004/30/2024 COMPR EHENS EUGENIA METAB OLIC PANEL eGFR 61 mL/mi n/1.7 3m2 > or = 60 normal Not Available [address], [address], 04/30/2024 09:46:58 04/29/2004/30/2024 COMPR EHENS EUGENIA METAB OLIC PANEL BUN/creatini ne ratio SEE NOTE: (calc ) 6-22 Not Repor ngozi: BUN and Creat inine are withi n refer ence range . Not Available [address], [address], 04/30/2024 09:46:58 04/29/2004/30/2024 COMPR EHENS EUGENIA METAB OLIC PANEL sodium 140 mmol/ L 135-14 6 normal Not Available [facility] [address], [address], 04/30/2024 09:46:58 04/29/20 24 04/30/2024 COMPR EHENS EUGENIA METAB OLIC PANEL potassium 4.4 mmol/ L 3.5-5. 3 normal Not Available [facility] [address], [address], 04/30/2024 09:46:58 04/29/20 24 04/30/2024 COMPR EHENS EUGENIA METAB OLIC PANEL chloride 104 mmol/ L 98-110 normal Not Available [address], [address], 04/30/2024 09:46:58 04/29/20 24 04/30/2024 COMPR EHENS EUGENIA METAB OLIC PANEL carbon dioxide 30 mmol/ L 20-32 normal Not Available [address], [address], 04/30/2024 09:46:58 04/29/20 24 04/30/2024 COMPR EHENS EUGENIA METAB OLIC PANEL calcium 9.7 mg/dL 8.6-10 .4 normal Not Available [address], [address], 04/30/2024 09:46:58 04/29/20 24 04/30/2024 COMPR EHENS EUGENIA METAB OLIC PANEL protein, total 6.7 g/dL 6.1-8. 1 normal Not Available [address], [address], 04/30/2024 09:46:58 04/29/20 24 04/30/2024 COMPR EHENS EUGENIA METAB OLIC PANEL albumin 4.1 g/dL 3.6-5. 1 normal Not Available [address], [address], 04/30/2024 09:46:58 04/29/20 24 04/30/2024 COMPR EHENS EUGENIA METAB OLIC PANEL globulin 2.6 g/dL_ (calc ) 1.9-3. 7 normal Not Available [address], [address], 04/30/2024 09:46:58 04/29/20 24 04/30/2024 COMPR EHENS EUGENIA METAB OLIC PANEL albumin/glob ulin ratio 1.6 (calc ) 1.0-2. 5 normal Not Available [address], [address], 04/30/2024 09:46:58 04/29/2004/30/2024 COMPR EHENS EUGENIA METAB OLIC PANEL bilirubin, total 0.8 mg/dL 0.2-1. 2 normal Not Available [address], [address], 04/30/2024 09:46:58 04/29/20 24 04/30/2024 COMPR EHENS EUGENIA METAB OLIC PANEL alkaline phosphatase 133 U/L 37-153 normal Not Available [facility] [address], [address], 04/30/2024 09:46:58 04/29/2004/30/2024 COMPR EHENS EUGENIA METAB OLIC PANEL AST 35 U/L 10-35 normal Not Available [address], [address], 04/30/2024 09:46:58 04/29/2004/30/2024 COMPR EHENS EUGENIA METAB OLIC PANEL ALT 30 U/L 6-29 high Not Available [address], [address], 04/30/2024 09:46:58 01/24/2001/24/2025 TSH+F REE T4 TSH 1.05 mIU/L 0.40-4 .50 normal Not Available [address], [address], 01/24/2025 02:36:43 01/24/2001/24/2025 TSH+F REE T4 T4, free 1.6 NG/dL 0.8-1. 8 normal Not Available [address], [address], 01/24/2025 02:36:43 09/07/19 24 09/07/2023 CT, abdom en + pelvi s, w/o contr ast No observ ation record ed. [address] [facility] [address], [place], [address], 09/07/2023 15:58:17 02/03/20 24 02/03/2024 surjit r monit or No observ ation record ed. [address] [facility] [address], [place], [address], 02/03/2024 09:59:11 02/03/20 24 01/04/2024 mobil e cardi ac telem etry (PROC ) No observ ation record ed. [id number] Not Available 2023 17:26:44 04/14/20 24 04/08/2024 PFT, compl ete No observ ation record ed. [address], [place], [address], 04/14/2024 15:13:41 06/28/20 24 06/28/2024 DEXA, axial skele ton [facility] [address] [address] Patien t Name: SHEMAR MIRELES Access ion #: [id number] Sex: F : 1949 9 Dictat ed By: Linda Gallegos Attend ing Physic feli: DEEPALI TESFAYE CE Orderi Physic feli: DEEPALI TESFAYE CE Exam Date: 2023 15:07 PM Exam Name: [...] fied by WHO criter ia. Page [address] [facility] [address] [address] Patien t Name: SHEMAR MIRELES RY Access ion #: [id number] Sex: F : 1949 9 Dictat [...] at 2023 16:48: 30 PM Page 2 [email or web address] [address] [facility], [place], [address], 06/29/2024 09:55:12 06/28/20 24 06/28/2024 scree matt breas t kristen, bilat [facility] [address] [facility] [address], [place] [address] Patikatya t Name: SHEMAR MIRELES Access ion #: [id number] Sex: F : 1949 9 Dictat [...] also recomm ended. ASSESS MENT: Page 1 [facility] [address] [place] [address] Patien t Name: SHEMAR MIRELES Access ion #: [id number] Sex: F : 1949 9 Dictat ed By: Linda Gallegos Attend ing Physic feli: FITO CONTRERAS Orderi ng Physic feli: DEEPALI TESFAYE Exam Date: 2023 14:46 PM Exam Name: MG BOURGEOIS BREAST KRISTEN BILAT Admitt ing Diagno sis(es ): BIRADS : 2 - Benign Electr onical ly Signed by: Linda Gallegos at 2023 16:50: 19 PM Page [address] (Imaging) [address] [place], [address], 06/29/2024 09:55:37 12/11/19 25 12/10/2024 XR, chest No observ ation record ed. [address], [address], 12/12/2024 15:40:49 12/11/19 25 12/10/2024 CT, chest , w/o contr ast No observ ation record ed. [address], [address], 12/11/2024 10:24:06 12/30/19 25 12/29/2024 CT, liver , w/wo contr ast No observ ation record ed. [address], [address], 12/29/2024 12:38:59 Result Notes None recorded. Problems Name Problem SNOMED Code Status Onset Date Resolution Date Notes Provider Name and Address Organization Details Recorded Time Renewal of prescription Active 2021 Not Available [facility] 3 06:42:29 Serum creatinine above reference range 757081146 Active 2022 Not Available [facility] 3 06:42:29 Senile osteoporosis 14171489 Active 2021 Not Available [facility] 3 06:42:30 Asthma 968691184 Active Not Available [facility] 3 06:42:30 Anxiety disorder 800641088 Active Not Available [facility] 3 06:42:30 Migraine 49200674 Active Not Available [facility] 3 06:42:30 Osteoarthriti s 284449340 Active Not Available [facility] 3 06:42:30 Vertigo 290617621 Active 2021 Not Available [facility] 3 06:42:30 Allergic rhinitis 70080603 Active Not Available [facility] 3 06:42:30 Eye strain 95570656 Active 2017 Not Available [facility] 3 06:42:30 Polyp of colon 22236022 Active 2022 Kala Tesfaye MD [address], [place], [address] , [facility] 3 11:35:38 Vitamin D deficiency 95235420 Active 2022 Kala Tesfaye MD [address], [place], [address] , [facility] 3 11:38:40 Nausea 639355094 Active 2022 Lilly villatoro, [facility] 3 16:30:34 Gastroesophag eal reflux disease 973051525 Active 2022 Kala Tesfaye MD [address], [place], [address] , [facility] 3 10:46:36 Hernia of anterior abdominal wall 891460921 Active 2022 Sindy villatoro, [facility] 3 15:05:39 Hiatal hernia 92185354 Active 2022 Sindy Beck null, [place] [facility] 3 15:14:16 Anxiety 23102176 Active 2023 Ratna Luciano CMA null, [place] [facility] 4 12:44:43 Bradycardia 50531915 Active 2023 Sindy Hughesson null, [place] [facility] 4 16:46:01 Near syncope 871945442 Active 2023 Sindy Kiran null, [place] [facility] 4 16:46:10 Atrial fibrillation 47760173 Active 2023 Ratna Luciano CMA null, [place] [facility] 4 17:04:49 Osteopenia 511871468 Active 2023 Ratna Luciano CMA null, [place] [facility] 4 11:07:37 Gastroesophag eal reflux disease without esophagitis 145453745 Active 2023 Ratna Luciano CMA null, [place] [facility] 4 14:20:09 Lesion of liver 296226485 Active 2024 Ratna Luciano CMA null, [place] [facility] 5 15:23:48 Goiter 1894450 Active 2024 Ratna Luciano CMA null, [facility] 5 11:41:54 Problem Notes None recorded. Procedures Surgical History Date Name Laterality Status Provider Name and Address Organization Details Recorded Time 4 Medicare Wellness CPT Code, subsequent completed Margarette Enrique RN [facility] 05/31/2024 11:28:01 3 Medicare Wellness CPT Code, subsequent completed Margarette Enrique RN [facility] 02/27/2023 11:26:14 Imaging Results None recorded. Procedure Notes None recorded. Medical Equipment None Reported. Medications Name Sig Start Date Stop Date Status Note LastModified by Organization Details LastModified Time Prescripti on - Prior Authorizat ion Request active BCBS DENIAL FOR NURTEC ODT Not Available Not Available Not Available [...] BY MOUTH THREE TIMES DAILY NEEDED DIRECTED 2024 active Not Available Not Available Not Avai lable baclofen 10 mg tablet TAKE 1 TABLET [...] puff every day by inhalati on route. 08/18 /2021 completed Not Available Not Available Not Available Alberto Ellipta 100 mcg-62.5 mcg-25 mcg powder for inhalation INL 1 PUFF PO QD active Not Available Not Available No t Available Seanxdutch Inhub 500 mcg-50 mcg/dose powder for inhalation [...] Updated DateTime 5 160.02 cm 20.7 kg/m2 72914.3 1 g 84 /min 97 [degF] 94 % 94 % 118 mm[Hg] 60 mm[Hg] Lilly Zuluaga [employer] [facility] 5 11:22:22 Date Recorded Heart rate Provider Name an d Address Organization Details Last Updated DateTime 12/01/2023 55 /min Kala Tesfaye MD [address] [place] [address] Sy[place], [address], [address], [employer] [facility] 12/01/2023 11:24:31 Date Recorded Body height Body mass index (BMI) Body weight Oxygen saturation Oxygen saturation in Arterial blood by Pulse oximetry Systolic blood pressure Diastolic blood pressure Provider Name and Address Organization Details Last Updated DateTime 4 158.75 cm 21.2 kg/m2 29447.9 g 97 % 97 % 124 mm[Hg] 72 mm[Hg] Ratna Luciano CMA [employer] [facility] 4 11:16:56 Date Recorded Body height Body mass index (BMI) Body weight Heart rate Body temperature Oxygen saturation Oxygen saturation in Arterial blood by Pulse oximetry Systolic blood pressure Diastolic blood pressure Provider Name and Address Organization Details Last Updated DateTime 3 160.02 cm 21.3 kg/m2 91990.0 8 g 78 /min 97 [degF] 97 % 97 % 120 mm[Hg] 84 mm[Hg] Lilly Zuluaga [employer] 3 11:21:14 Date Recorded Body height Body mass index (BMI) Body weight Heart rate Body temperature Oxygen saturation Oxygen saturation in Arterial blood by Pulse oximetry Systolic blood pressure Diastolic blood pressure Provider Name and Address Organization Details Last Updated DateTime 4 160.02 cm 20.7 kg/m2 89822.3 1 g 80 /min 97 [degF] 97 % 97 % 124 mm[Hg] 62 mm[Hg] Lilly Zuluaga [employer] [facility] 4 11:13:39 Date Recorded Body height Body mass index (BMI) Body weight Heart rate Body temperature Oxygen saturation Oxygen saturation in Arterial blood by Pulse oximetry Systolic blood pressure Diastolic blood pressure Provider Name and Address Organization Details Last Updated DateTime 3 160.02 cm 21.6 kg/m2 20208.2 7 g 80 /min 97 [degF] 95 % 95 % 118 mm[Hg] 78 mm[Hg] Lilly Zuluaga [employer] [facility] 3 10:35:22 Social History Question Answer Notes LastModified by Organizat ion Details LastModified Time Tobacco Smoking Status Former Smoker Not Available [facility] 10/22/2022 06:39:47 Do You Have An Advance Directive? Yes [email or web address] Information not available 05/31/2024 Are You Blind Or Do You Have Difficulty Seeing? No MIGRATION.15857 57143 Information not available 10/22/2022 In The 14 Days Before Symptom Onset, Have You Had Close Contact With A Laboratory-confi rmed COVID-19 While That Case Was Ill? No MIGRATION.62572 40637 Information not available 10/22/2022 In The 14 Days Before Symptom Onset, Have You Had Close Contact With A Person Who Is Under Investigation For COVID-19 While That Person Was Ill? No MIGRATION.32604 81368 Information not available 10/22/2022 Are You Deaf Or Do You Have Serious Difficulty Hearing? No MIGRATION.39466 86961 Information not available 10/22/2022 What Type Of Diet Are You Following? REGULAR MIGRATION.43060 13262 Information not available 10/22/2022 Have There Been Any Changes To Your Family Or Social Situation? No MIGRATION.00929 46190 Information not available 10/22/2022 What Is The Fluoride Status Of Your Home? Unknown MIGRATION.53625 13327 Information not available 10/22/2022 When Did You Quit Smoking? 16+yearssincelastc igarette MIGRATION.47865 44788 Information not available 10/22/2022 Are There Any Guns Present In Your Home? No MIGRATION.08770 35835 Information not available 10/22/2022 Do You Use Insect Repellent Routinely? No MIGRATION.69892 71422 Information not available 10/22/2022 Where [facility] You Live? [facility] MIGRATION.35975 80349 Information not available 10/22/2022 Guns Present In The Home? No [email or web address] Information not available 05/31/2024 Are You Able To Care For Yourself? Yes [email or web address] Information not available 05/31/2024 Are You Blind Or Do Yo Have Difficulty Seeing? No [email or web address] Information not available 05/31/2024 Are You Deaf Or Do You Have Serious Difficulty Hearing? No [email or web address] Information not available 05/31/2024 Live Alone Of With Others? Alone [email or web address] Information not available 05/31/2024 Do You Have A Medical Power Of Heating Mechanic? Yes Information not available 05/31/2024 What Was The Date Of Your Most Recent Tobacco Screening? 05/31/2024 [email or web address] Information not available 05/31/2024 Do You Have Any Pets? No MIGRATION.43630 88868 Information not available 10/22/2022 Do You Use Your Seat Belt Or Car Seat Routinely? Yes MIGRATION.84367 83078 Information not available 10/22/2022 Do You Have Smoke And Carbon Monoxide Detectors In Your Home? Yes MIGRATION.79477 53513 Information not available 10/22/2022 Are You Passively Exposed To Smoke? No MIGRATION.86436 79745 Information not available 10/22/2022 Are There Any Smokers In Your House? No MIGRATION.08606 37272 Information not available 10/22/2022 Do You Use Sunscreen Routinely? No MIGRATION.60251 12724 Information not available 10/22/2022 How Many Years Have You Smoked Tobacco? 30 MIGRATION.14350 07594 Information not available 10/22/2022 Have You Recently Traveled Abroad? No MIGRATION.92032 03216 Information not available 10/22/2022 Do You Have Difficulty Walking Or Climbing Stairs? No MIGRATION.72328 89530 Information not available 10/22/2022 Do You Have Any Dietary Restrictions? No MIGRATION.95057 65194 Information not available 10/22/2022 Sex: Unknown Functional Status Question Answer Note LastModified by Organizat [employer] Details LastModified Time What is your level of alcohol consumption? None [email or web address] Information not available 05/31/2024 Do you have transportation difficulties? No MIGRATION.4410903 026 Information not available 10/22/2022 Are you able to walk? YESWOREST MIGRATION.4426676 026 Information not available 10/22/2022 Do you have difficulty doing errands alone? No MIGRATION.8537780 026 Information not available 10/22/2022 Are you able to care for yourself? Yes MIGRATION.1165395 026 Information not available 10/22/2022 Do you have difficulty dressing or bathing? No MIGRATION.6971584 026 Information not available 10/22/2022 What is your exercise level? Moderate MIGRATION.9702093 026 Information not available 10/22/2022 Mental Status Question Answer Note LastModified by Organizat [employer] Details LastModified Time Do you have difficulty concentrating, remembering or making decisions? No MIGRATION.527569964 6 Information not available 10/22/2022 Family History Relationship Description Onset Age of this Age Resolved Age Notes LastModified by Organization Details LastModified Time Father Family history of malignant neoplasm MIGRATION.740 [id number] Not available 10/22/2022 06:40:09 Mother Family history of malignant neoplasm MIGRATION.994 [id number] Not available 10/22/2022 06:40:09 Notes:Mother 64 yea rs old Father 76 years old 1 Brothers 1 Living 4 Sisters 2 Living one killed by MVA as child and the other of complications of COPD, Liver and Drug Addiction Mother Hx Ca of Lung Father Hx Ca of Stomach Medical History Condition Response BLINDNESS N NERVE DISEASE N RHEUMATIC FEVER N BLADDER PROBLEMS N KIDNEY STONES N MRSA N OTHER # 1 N [...] ARTERY DISEASE (CAD) N ADDICTION CONCERNS N ENDOMETRIOSIS N Impotence N USE OF BLOOD THINNERS N SKIN [...] APNEA N CHICKENPOX N INFECTIOUS DISEASE N HEART ARRHYTHMIA N PROSTATE N INSOMNIA N HIGH CHOLESTEROL / HYPERLIPIDEMIA N HYPERTHYROIDISM N EYE PROBLEMS N EDEMA N CHRONIC PAIN SYNDROME N HYPOTHYROIDISM N CAROTID BLOCKAGE N CONSTIPATION N BACK / NECK PROBLEMS N HAVE YOU BEEN HOSPITALIZED OR SEEN IN [facility] IN THE PAST YEAR ? [...] Brain Problems N HERPES N DEMENTIA N HEADACHES/MIGRAINES Y SEIZURES/EPILEPSY N VASCULAR DISEASE N PACEMAKER N Blood Disorder N DIZZINESS N HEART DISEASE/HEART PROBLEMS N KIDNEY DISEASE N MULTIPLE SCLEROSIS N CARDIAC ARRHYTHMIA N CANCER: SPECIFY N ATRIAL FIBRILLATION N Gall Stones N PULMONARY EMBOLISM N AUTOIMMUNE DISEASE N Gynecological HistoryNo gynecological history recorded. Obstetrics History GPAL:G 0 P 0 0 0 0 Immunizations Vaccine Type Date Status Note Provider Nam e and Address Organization Details Recorded Time Pneumococcal conjugate PCV20, polysaccharide CRC473 conjugate, adjuvant, PF 5 completed Lilly villatoro [employer] [facility] 11/30/2024 12:40:33 SARS-COV-2 (COVID-19) vaccine, UNSPECIFIED 3 completed Lilly villatoro [employer] [facility] 08/04/2023 10:35:58 influenza, unspecified formulation 3 completed Lilly villatoro [employer] [facility] 08/04/2023 10:36:14 SARS-COV-2 (COVID-19) vaccine, UNSPECIFIED 4 completed Lilly Slecka null, [facility] 05/31/2024 11:14:14 influenza, unspecified formulation 4 completed Lilly Slecka null, [facility] 05/31/2024 11:14:30 Respiratory syncytial virus (RSV) MAB, unspecified 4 completed Lilly Slecka null, [facility] 05/31/2024 11:15:16 SARS-COV-2 (COVID-19) vaccine, UNSPECIFIED 1 completed Not Available [facility] 10/22/2022 06:46:47 SARS-COV-2 (COVID-19) vaccine, UNSPECIFIED 1 completed Not Available [facility] 10/22/2022 06:46:47 COVID-19, mRNA, LNP-S, PF, 30 mcg/0.3 mL dose 1 completed Not Available [facility] 10/22/2022 06:46:47 Influenza, high-dose, quadrivalent, PF 1 completed Not Available [facility] 10/22/2022 06:46:48 Influenza, high-dose, quadrivalent, PF 0 completed Not Available [facility] 10/22/2022 06:46:48 Influenza, high-dose, trivalent, PF 8 completed Not Available [facility] 10/22/2022 06:46:48 Influenza, high-dose, trivalent, PF 7 completed Not Available [facility] 10/22/2022 06:46:48 Influenza, high-dose, trivalent, PF 6 completed Not Available [facility] 10/22/2022 06:46:48 pneumococcal polysaccharide PPV23 6 completed Not Available [facility] 10/22/2022 06:46:48 Pneumococcal conjugate PCV 13 4 completed Not Available [facility] 10/22/2022 06:46:49 Past Encounters Encounter ID Performer Location Encounter Start Date Encounter Closed Date Diagnosis/Indication Diagnosis SNOMED-CT Code Diagnosis ICD10 Code Diagnosis Note [id number] Kala Tesfaye MD [facility] [place] [address] [place] [address] 03/01/2021 00:00:00 03/01/2021 14:37:10 [id number] Gumaro Beasley MD [facility] [place] [address] [place] [address] 04/10/2021 00:00:00 05/09/2021 10:30:51 [id number] Gumaro Beasley MD [facility] [place] [address] [place] [address] 04/17/2021 00:00:00 04/17/2021 10:24:30 [id number] Odilon Harmon MD [facility] [address] [place] [address] 04/17/2021 00:00:00 04/17/2021 16:50:30 [id number] Odilon Harmon MD [facility] [place] [address] [place] [address] 04/30/2021 00:00:00 04/30/2021 12:55:26 [id number] Odilon Harmon MD [facility] [place] [address] [place] [address] 05/21/2021 00:00:00 05/21/2021 12:44:02 [id number] Odilon Harmon MD [facility] [place] [address] [place] [address] 06/04/2021 00:00:00 06/04/2021 09:42:36 [id number] Odilon Harmon MD [facility] [place] [address] [place] [address] 08/06/2021 00:00:00 08/06/2021 09:43:21 [id number] Kala Tesfaye MD [facility] [place] [address] [place] [address] 10/01/2021 00:00:00 10/01/2021 15:10:40 [id number] Kala Tesfaye MD [facility] [place] [address] [place] [address] [place] [address] 02/21/2022 00:00:00 02/21/2022 11:17:17 [id number] Kala Tesfaye MD [facility] [place] [address] [place] [address] [place] [address] 08/29/2022 00:00:00 08/29/2022 10:57:58 [id number] Kala Tesfaye MD [facility] [place] [address] [place] [address] [place] [address] 02/27/2023 11:12:37 02/27/2023 11:44:36 Adult health examination 006334263 Z00.00 Screening for disorder 818926773 Z13.9 Asthma 915857606 J45.90 9 Anxiety disorder 2067204 06 F41.9 Migraine 40197755 G43.90 9 Polyp of colon 64152699 K63.5 Screening for cardiovascular system disease 060701127 Z13.6 Vitamin D deficiency 347 63693 E55.9 [id number] Kala Tesfaye MD [facility] [place] [address] [place] [address] y , [place] [address] 08/04/2023 10:29:23 08/04/2023 10:59:24 Polyp of colon 65740967 K63.5 Senile osteoporosis 1804 0001 M81.0 Asthma 493464496 J45.90 9 Gastroesop hageal reflux disease 864118425 K21.9 Migraine 07546338 G43.90 9 [id number] Kala Tesfaye MD [facility] [place] [address] [place] [address] [place] [address] 12/01/2023 11:10:11 12/01/2023 11:41:57 Gastroesophageal reflux disease 710665992 K21.9 Asthma 883725524 J45.90 9 Hernia of anterior abdominal wall 311230564 K43.9 Screening for cardiovascular system disease 916091543 Z13.6 Bradycardia 98564583 R00 .1 Hyperlipidemia 63745040 E78.5 [id number] Kala Tesfaye MD [facility] Internal Med [place] [address] [facility] y , [place] [address] 05/31/2024 11:08:32 05/31/2024 11:59:19 Adult health examination 990493098 Z00.00 Screening for disorder 876998264 Z13.9 Atrial fibrillation 4943 6004 I48.91 Anxiety disorder 9508917 06 F41.9 Gastroesop hageal reflux disease 595314089 K21.9 [id number] Kala Tesfaye MD [facility] Primary Care [place] [address] [address] [facility] [address] [facility] [place] [address] 11/29/2024 10:55:53 11/29/2024 11:52:24 Gastroesophageal reflux disease 896463133 K21.9 Hernia of anterior abdominal wall 858878291 K43.9 Asthma 971125633 J45.90 9 Migraine 40905963 G43.90 9 Screening for cardiovascular system disease 773080064 Z13.6 Vitamin D deficiency 347 00218 E55.9 Health Concerns Section Related Observation LastModified by Organization Detai ls LastModified Time None Recorded Concern Status LastModified by Organization Details LastModified Time None Recorded Advance Directives Directive Y: Payers Encounter Date Sequence Insurance Name Policy Number Policy Mead Covered Member ID Mead Member ID Guarantor Name 02/27/2023 1 [place] Suzy Mireles [id number] Suzy Mireles 02/27/2023 2 [place] 111 Suyz Mckinleyuer [id number] Suzy Mireles 08/04/2023 1 [place] Suzy Mireles [id number] Suzy Mireles 08/04/2023 2 [place] 111 Suzy Mireles [id number] Suzy Mireles 12/01/2023 1 [place] Suzy Mireles [id number] Suzy Mireles 12/01/2023 2 [place] 111 Suzy Mireles [id number] Suzy Mireles 05/31/2024 1 [place] Suzy Mireles [id number] Suzy Mireles 05/31/2024 2 [place] 111 Suzy Mireles [id number] Suzy Mireles 11/29/2024 1 [place] Suzy Mireles [id number] Suzy Mireles 11/29/2024 2 [place] 111 Suzy Mireles [id number] Suzy Mireles Notes Date Note Type Note [...] Symptoms: none Medication Reconciliation: from medication list. Yefbmqictuy72/25/2022: Bone density scan and mammography performed on [...] five years ago.Medication List Reviewed and Reconciled 3Pimecrolimus 1% (CREAM - TOPICAL) Aplly As DirecetdProventil 2 Puffs Qid PrnFlonase 0.05 MG/SPRAY (SPRAY, METERED - NASAL) Two Sprays Each Nostril Once DailyZomig 5 MG (TABLET - ORAL) As DirectedWixela Inhub 0.1 MG/INH- 0.05 MG /INH (POWDER - INHALATION) One EverySpiriva As DirectedFosamax 70 MG TABLET Q WeeklyNurtec Odt 75 MG/75MG TABLET, ORALLY DISINTEGRATING One As DirectedADRs List Reviewed 02/27/2023Lisinopril CoughVaccination and Vgasduhsunrm8933-85 Rcwlldmwr6533-31 Covid Booster Lbiqmb3673-11 Covid Losjlj5579-89 Prevnar 163472-14 Pneumovax (high RiskSurgical HistoryBurns, Vaginal Hysterectomy, AppendectomyPreventative Testing Confirmed by Our Apluzqk2009/08/2022 ALBUMIN 4.4 G/DL03/17/2022 MAMMOGRAM DEXA SCAN10/12/2015 COLONOSCOPY [...] Ca of Stomach Kala Tesfaye MD [address], [address], [facility] 02/27/2023 11:39:20 3 text/htm l Patient Name: [...] As DirectedADRs List Reviewed 08/04/2023Lisinopril CoughVaccination and Axinurpratlg2975-91 Uoglhfwlc3277-49 Covid Booster Wzslfi8768-03 Covid Voojhk4551-06 Prevnar 13 Ya1698-02 PneumovaxSurgical HistoryBurns, Vaginal Hysterectomy, AppendectomyPreventative Testing Confirmed by Our Xtksitk3004/22/2023 ALBUMIN 4.3 G/DL N003/17/2022 MAMMOGRAM / DEXA [...] Ca of Stomach Kala Tesfaye MD [address] [facility], [facility] [address], [place], [address], [facility] 08/04/2023 10:51:43 4 text/htm l Patient Name: [...] DirectedAdverse Drug Reactions ReviewedLisinopril Cough Vaccination and Zfierxtvgjey6538-52 Crkjnwdkx9912-27 Covid Booster Qdfarz1467-49 Covid Ldxnsl6696-42 Prevnar 13 Ob8455-00 Pneumovax Surgical Mkkmtre3848-87 Hltfz3413-32 Vaginal Ummosrowkbeo6361-20 Appendectomy Preventative Tindlwd0404/22/2023 ALBUMIN 4.3 G/DL N003/17/2022 MAMMOGRAM / DEXA SCAN10/12/2015 COLONOSCOPY (5 YEARS) OPHTHALMOLOGY Social HistorySOCIAL HISTORY:Marital Status: MLiving Status: [...] Ca of Stomach Kala Tesfaye MD [address] [facility], [address] [place] [address], [place], [address], [facility] 12/01/2023 11:36:51 4 text/htm l Patient Name: [...] specific medication. Rate control: controlled ventricular response [id number] Criteria: Age 65-74 and and considered low [...] 2024-05 COVID BOOSTER PFIZER(X) 2024-04 RSV Surgical Kjuagyr5997-28 Ytglq7137-31 Vaginal Xclvqcrsmbyv0733-25 Appendectomy Preventative Testing( ) 04/29/2024 Albumin 4.1 [...] 0.60-1.00 MG/DLEGFR 61 > OR = 60 ML/MIN/1.04Q1BMICASDHP, TOTAL 0.8 0.2-1.2 MG/DLALKALINE PHOSPHATASE 133 37-153 U/LAST 35 10-35 U/LALT 30 6-29 U/LLIPID PANEL, STANDARD Date: 4CHOLESTEROL, TOTAL 161 <200 MG/DLHDL CHOLESTEROL 79 > OR = 50 MG/DLTRIGLYCERIDES 58 <150 MG/DLLDL-CHOLESTEROL 69 MG/DL (CALC) Kala Tesfaye MD [address] [facility], [facility] [address], [place], [address], [facility] [employer] 05/31/2024 11:46:10 5 text/htm l Patient Name: [...] COVID BOOSTER PFIZER( ) 2024-04 RSV Surgical Ddmkeko1864-35 Dibsy2294-65 Vaginal Dlwrrmlgdkrg0925-83 Appendectomy Preventative Testing( ) 06/28/2024 Mammogram 06/28/2026( [...] Ca of Stomach Kala Tesfaye MD [address] [facility], [facility] [address], [place], [address], [place] [facility] 11/29/2024 11:42:37 OBGyn Episode No OBEpisode recorded.
--- OUTSIDE RECORDS SUMMARY | 2025-02-01 13:47 | XMS_ITS | CONTINUITY OF CARE DOCUMENT ---
Author Name maryann wolf Address Unknown Organization [facility] Address [address] [place] [address] [address] [place] [address] Phone [phone] Care Team Providers Care Hand Cultivator Name Role Phone Bret MARC, Faisal Unavailable FITO MARC, KALA Unavailable [phone] FITO MARC, KALA Unavailable [phone] INSURANCE PROVIDERS Payer name Policy type / Coverage type Stamps red democrat ID [facility] [id number] [place] Medicare [id number]
--- OUTSIDE RECORDS SUMMARY | 2025-02-01 13:47 | XMS_ITS | Clinical Summary ---
Author Organization [facility] Address [address] [place] [address] Phone Care Team Providers Care Fish Worm Grower Name Role Phone Saul Tesfaye MD Primary Care Provider [phone] Helen Mullen APRN, SUPERVISOR DECORATING Unavailable Allergies No known active allergies Medications [...] Active fluticasone (FLONASE) 50 MCG/ACT Suspension 1 [place] by Nasal route as needed. Use in [...] on file Legal Sex Female 11:10 AM CARD FILER Gender Identity Not on file Sexual Orientation Not on file Last Filed Vital Signs Vital Sign Reading Time Taken Comments Blood Pressure 139/80 09/13/2024 8:46 AM CARD FILER Pulse 78 09/13/2024 8:46 AM CARD FILER Temperature 37 C (98.6 F) 09/13/2024 8:46 AM CARD FILER Respiratory Rate 18 09/13/2024 8:46 AM CARD FILER Oxygen Saturation 100% 09/13/2024 8:46 AM CARD FILER Inhaled Oxygen Concentration - - Weight 52.2 kg (115 lb) 09/07/2024 11:37 AM CARD FILER Height 160 cm (5' 3) 09/07/2024 11:37 AM CARD FILER Body Mass Index 20.37 09/07/2024 11:37 AM CARD FILER Plan of Treatment Health Maintenance Due Date [...] on patient's age to complete this topic Human Papillomavirus (HPV) Immunization Aged Out No longer eligible based on patient's age to complete this topic Meningococcal Immunization (ACWY) Aged Out No longer eligible based on patient's age to complete this topic Rotavirus Immunization Aged Out No lo nger eligible based on patient's age to complete this topic Insurance MEDICARE [facility] Care Teams Fish Worm Grower Relationship Specialty Start Date End Date Saul Tesfaye MD [address] [place] [id number] PCP - General Internal Medicine 07/05/20 Helen Mullen APRN, SUPERVISOR DECORATING [address] [place] [address] Nurse Practitioner Advanced Practice Nurse 08/22/24
== END 2025-02-01 11:23 | disposition home or self-care (01) ==
PROVIDERS: PCP Internal Medicine; Visit Provider Internal Medicine
DX: E04.2 Nontoxic multinodular goiter (principal)
CPT/HCPCS: 76536

== ENCOUNTER 2025-07-18 10:54 | Outpatient (CLI) | payer MEDICARE, BC, SELFPAY ==
--- NOTE | ~2025-07-18 | XR_ITS ---
EXAMINATION: XR chest 2V, 07/18/2025 11:10 ELECTRIC RELAY TESTER HISTORY: J44.9 - Chronic obstructive pulmonary disease, unspecified COMPARISON: No comparisons available. Technique: 2 views obtained. Findings: COPD changes noted otherwise the lungs are clear No pneumothorax. Heart is normal size. Mediastinal and hilar contours are within normal limits. Bony thorax no acute abnormality. Impression: No acute cardiopulmonary abnormality. Reviewed, dictated and finalized at location P. TRIC RELAY TESTER Impression: No acute cardiopulmonary abnormality.
[2025-07-18 13:16] LABS: Influenza A QL RT-PCR Negative (Negative); Influenza B QL RT-PCR Negative (Negative); RSV RNA, RT-PCR Negative (Negative); SARS-CoV-2 RNA PCR Negative (Negative)
== END 2025-07-18 10:55 | disposition home or self-care (01) ==
PROVIDERS: PCP Internal Medicine; Visit Provider Internal Medicine Pulmonary Disease
DX: J44.9 Chronic obstructive pulmonary disease, unspecified (principal); R05.8 Other specified cough; R05.9 Cough, unspecified; Z20.822 Contact with and (suspected) exposure to COVID-19
CPT/HCPCS: 71046; 87637